=== PATIENT | female | born 1950 | race Caucasian/White ===

== ENCOUNTER 2021-04-17 16:04 | Emergency (ER) | payer MEDICARE, MEDICAID, SELFPAY ==
[2021-04-17 16:34] VITALS: BP 108/60; BP 128/50; PULSE 55; PULSE 60; RESP 18; TEMP 36.6; O2SAT 100; O2SAT 99; BMI 22.9
--- NOTE | 2021-04-17 16:42 | ED.GENADULT ---
HPI - General Adult General Chief complaint: General Medical Stated complaint: ?uti Source: patient and EMS Mode of arrival: EMS Limitations: no limitations History of Present Illness HPI narrative: 71-year-old female presents from a [place] [facility] facility for altered mental status and missing 5 days of a psychiatric medication. At the time of my evaluation patient is alert oriented x4, answering questions accurately. States that she has urinary symptoms and has had episodes of incontinence over the past several days. She states to feel tired but does not describe any other symptoms at this time. She denies fevers, chills, chest pain or pressure, palpitations, shortness of breath, nausea, vomiting, diarrhea, constipation, or any other concerning symptoms. Onset (ago): day(s) Radiation: non-radiation Severity: moderate Severity scale (1-10): 6 Quality: burning Pain Consistency: intermittent Relieving factors: none Associated symptoms: malaise Treatments prior to arrival: none Related Data Previous Rx's Medication Instructions Recorded cefuroxime axetil 500 mg tablet 500 mg PO Q12H 7 Days #14 tab 04/17/21 Allergies Allergy/AdvReac Type Severity Reaction Status Date / Time Penicillins Allergy Hives Verified 04/17/21 16:26 Review of Systems Review of Systems: Constitutional: Positive altered mental status, No Fever, No Chills ENT/Mouth: No Ear Pain, No Hoarseness, No sore throat Eyes: No Eye Pain, No Swelling, No Redness, No Foreign Body Cardiovascular: No Chest Pain, No SOB Respiratory: No Cough, No Dyspnea Gastrointestinal: No Nausea, No Vomiting, No Diarrhea, No abdominal Pain Genitourinary: Positive Dysuria, positive urgency, positive stress incontinence, No Hematuria Musculoskeletal: positive joint pain, No Myalgias, No Joint Swelling Skin: No Skin lacerations, No rash Neuro: No Weakness, No Numbness, No Paresthesias, No Loss of Consciousness, No Dizziness, No Headache Psych: No Anxiety/Panic, No Depression Heme/Lymph: no easy bruising, no Lymphadenopathy Endocrine: No Polyuria, No Polydipsia Yes all other systems are reviewed and are negative [facility] Past Medical History Attestation statement: The following information was validated with the patient. Source: old records reviewed Medical History Coronary artery disease DVT (deep venous thrombosis) Glaucoma Neuropathy Non-insulin dependent diabetes mellitus Pulmonary embolism Vascular dementia Social History Social History Alcohol intake: never Patient Tobacco Use Status: Former Tobacco user Use of substances other than those prescribed or required for medical reasons: No Advance Directives: No Advance Directives Information Provided: Yes Physical Exam Vital Signs: Vital Signs: Last Vital Signs Temp 97.9 F 04/17/21 20:00 Pulse 58 04/17/21 20:00 Resp 18 04/17/21 20:00 BP 118/58 L 04/17/21 20:00 Pulse Ox 99 04/17/21 20:00 Body Mass Index 22.9 Appearance: Alert. Oriented X3. No acute distress. Eyes: Pupils equal, round and reactive to light. ENT: Pharynx normal. Neck: Normal inspection. Neck supple. CVS: Normal heart rate and rhythm. Pulses normal. Respiratory: No respiratory distress. Breath sounds normal. Abdomen: Soft and nontender. Skin: Skin warm and dry. Normal skin color. Normal skin turgor. Extremities: No lower extremity edema. Moves all extremities, gait not assessed for safety. Neuro: No motor deficit. No sensory deficit. Cranial nerves 2-12 intact. Course Course Course Narrative: 71-year-old female presents via EMS from a [place] [facility] for suspected UTI. Has had altered mental status for several days, also noted that she has not received her olanzapine for several days. At this time, patient is alert oriented, answering questions appropriately, and in complete sentences. States to have urinary symptoms for the past several days. Will order CBC, Chem 7, and urinalysis. Urinalysis is positive for UTI. Will order ceftriaxone, lactic and cultures. Multiple attempts for IV start failed. Patient received ceftriaxone for UTI, no complications noted. Will discharge to [place] [facility] with cefuroxime. RN called report to facility. Medical Decision Making Lab Data Result diagrams: 04/17/21 16:52 04/17/21 16:52 Labs: Lab Results 04/17/21 04/17/21 04/17/21 Range/Units 16:52 16:52 17:03 WBC 6.9 (4.8-10.8) X10*3/uL RBC 3.50 L (4.20-5.50) X10*6/uL Hgb 10.7 L (12.0-16.0) g/dl Hct 33.4 L (37-47) % MCV 95.4 (80-98) fL MCH 30.6 (27.0-33.0) pg MCHC 32.0 (31.0-35.0) g/dl RDW 12.2 (11.0-16.0) % Plt Count 198 (160-400) X10*3/uL MPV 10.1 (9.4-12.3) fL Immature Gran % (Auto) 0.3 (0.0-0.4) % Neut % (Auto) 65.0 (45-73) % Lymph % (Auto) 26.2 (20-40) % [place] % (Auto) 7.4 (2-11) % Eos % (Auto) 1.0 (0-4) % Baso % (Auto) 0.1 (0-2) % Lymph # (Auto) 1.8 (1.2-4.9) X10*3/uL [place] # (Auto) 0.5 (0.1-1.2) X10*3/uL Eos # (Auto) 0.1 (0.0-0.4) X10*3/uL Baso # (Auto) 0.0 (0.0-0.2) X10*3/uL Abs Immat Gran (auto) 0.02 (0.00-0.03) X10*3/uL Absolute Neuts (auto) 4.5 (2.0-8.3) X10*3/uL Absolute Nucleated RBC 0.000 (0.0-0.012) X10*3/uL Nucleated RBC % (auto) 0.0 (0.0-0.2) /100WBC Sodium 144 (135-145) mmol/L Potassium 4.3 (3.3-5.1) mmol/L Chloride 113 H (96-108) mmol/L Carbon Dioxide 24 (22-29) mmol/L Anion Gap 11 L (12-20) BUN 21 H (9-16) mg/dL Creatinine 0.94 (0.5-1.4) mg/dL Estim Creat Clear Calc 55.3 Estimated GFR 59 Random Glucose 152 H (60-115) mg/dL Lactic Acid (0.5-2.0) mmol/L Calcium 8.8 (8.4-10.2) mg/dL Urine Color YELLOW Urine Appearance HAZY Urine pH 6.0 (5.0-8.0) Ur Specific [place] 1.020 (1.005-1.025) Urine Protein TRACE (NEG-TRACE) MG/DL Urine Glucose (UA) NEG (NEG) MG/DL Urine Ketones NEG (NEG) MG/DL Urine Blood NEG (NEG) Urine Nitrite POS H (NEG) Ur Leukocyte Esterase 2+ H (NEG) Urine RBC 0 (0) /HPF Urine WBC 76-150 H (0-4) /HPF Ur Squamous Epith Cells TRACE /LPF Ur Renal Epithelial Cell TRACE /LPF Uric Acid Crystals TRACE /LPF Urine Bacteria 4+ /LPF 04/17/21 Range/Units 18:55 WBC (4.8-10.8) X10*3/uL RBC (4.20-5.50) X10*6/uL Hgb (12.0-16.0) g/dl Hct (37-47) % MCV (80-98) fL MCH (27.0-33.0) pg MCHC (31.0-35.0) g/dl RDW (11.0-16.0) % Plt Count (160-400) X10*3/uL MPV (9.4-12.3) fL Immature Gran % (Auto) (0.0-0.4) % Neut % (Auto) (45-73) % Lymph % (Auto) (20-40) % [place] % (Auto) (2-11) % Eos % (Auto) (0-4) % Baso % (Auto) (0-2) % Lymph # (Auto) (1.2-4.9) X10*3/uL [place] # (Auto) (0.1-1.2) X10*3/uL Eos # (Auto) (0.0-0.4) X10*3/uL Baso # (Auto) (0.0-0.2) X10*3/uL Abs Immat Gran (auto) (0.00-0.03) X10*3/uL Absolute Neuts (auto) (2.0-8.3) X10*3/uL Absolute Nucleated RBC (0.0-0.012) X10*3/uL Nucleated RBC % (auto) (0.0-0.2) /100WBC Sodium (135-145) mmol/L Potassium (3.3-5.1) mmol/L Chloride (96-108) mmol/L Carbon Dioxide (22-29) mmol/L Anion Gap (12-20) BUN (9-16) mg/dL Creatinine (0.5-1.4) mg/dL Estim Creat Clear Calc Estimated GFR Random Glucose (60-115) mg/dL Lactic Acid 0.9 (0.5-2.0) mmol/L Calcium (8.4-10.2) mg/dL Urine Color Urine Appearance Urine pH (5.0-8.0) Ur Specific [place] (1.005-1.025) Urine Protein (NEG-TRACE) MG/DL Urine Glucose (UA) (NEG) MG/DL Urine Ketones (NEG) MG/DL Urine Blood (NEG) Urine Nitrite (NEG) Ur Leukocyte Esterase (NEG) Urine RBC (0) /HPF Urine WBC (0-4) /HPF Ur Squamous Epith Cells /LPF Ur Renal Epithelial Cell /LPF Uric Acid Crystals /LPF Urine Bacteria /LPF Discharge Plan Discharge Clinical Impression: Acute UTI Patient Disposition: Home, Self-Care Instructions: Urinary Tract Infection in Women (ED) Additional Instructions: You were evaluated for dysuria. Your urinalysis is positive for UTI. Please take cefuroxime 500 mg twice a day for the next 7 days Drink plenty of fluids. Please continue to take all medications as prescribed previously. Thank you for choosing this emergency department for evaluation. Please follow-up with primary care physician as needed. Return to the emergency department for any new, concerning, or worsening symptoms. Prescriptions: New cefuroxime axetil 500 mg tablet 500 mg PO Q12H 7 Days Qty: 14 RF: 0 Interventions: ED Discharge Assessment Last Done: 04/17/21 21:37 Discharge Date/Time: 04/17/21 21:39
[2021-04-17 16:57] LABS: MANUAL DIFF FLAG NO
[2021-04-17 17:19] LABS: Basophils Percent Auto 0.1 % (0-2); Eosinophils Absolute Auto 0.1 X10*3/uL (0.0-0.4); Hematocrit 33.4 % (37-47); Hemoglobin 10.7 g/dl (12.0-16.0); Imm Gran Abs Auto 0.02 X10*3/uL (0.00-0.03); Imm Gran Pct Auto 0.3 % (0.0-0.4); Lymphocytes Absolute Auto 1.8 X10*3/uL (1.2-4.9); Lymphocytes Percent Auto 26.2 % (20-40); Mean Corpuscular Hemoglobin 30.6 pg (27.0-33.0); Mean Corpuscular Volume 95.4 fL (80-98); Mean Platelet Volume 10.1 fL (9.4-12.3); Monocytes Absolute Auto 0.5 X10*3/uL (0.1-1.2); Monocytes Percent Auto 7.4 % (2-11); Neutrophils Absolute Auto 4.5 X10*3/uL (2.0-8.3); Platelet Count 198 X10*3/uL (160-400); Red Cell Distribution Width 12.2 % (11.0-16.0); White Blood Count 6.9 X10*3/uL (4.8-10.8)
[2021-04-17 17:20] LABS: Anion Gap 11 (12-20); Blood Urea Nitrogen 21 mg/dL (9-16); Calcium 8.8 mg/dL (8.4-10.2); Carbon Dioxide 24 mmol/L (22-29); Chloride 113 mmol/L (96-108); Creatinine Clr Calc Pharmacy 55.3; Estimated Glomerular Filt Rate 59; Glucose Random 152 mg/dL (60-115); Potassium 4.3 mmol/L (3.3-5.1); Sodium 144 mmol/L (135-145)
[2021-04-17 17:38] LABS: Glucose Urine UA NEG (NEG); Leukocyte Esterase Urine 2+ (NEG); Nitrite Urine POS (NEG); UACC Culture Trigger YES; Urine Blood NEG (NEG); Urine Ketones NEG (NEG); Urine Protein TRACE MG/DL (NEG-TRACE)
[2021-04-17 17:39] LABS: Appearance Urine HAZY; Color Urine YELLOW
[2021-04-17 17:53] VITALS: BP 122/35; PULSE 61; RESP 18; TEMP 36.7; O2SAT 96
--- NOTE | 2021-04-17 17:54 | PC.NURSE ---
patient continues to be a&ox3, vss, pt awaiting results of testing, will continue to monitor.
[2021-04-17 18:01] LABS: Bacteria Urine 4+ /LPF; RBC Urine 0 /HPF (0); Renal Epithelial Cells Urine TRACE /LPF; Squamous Epithelial Cell Urine TRACE /LPF; Uric Acid Crystals Urine TRACE /LPF
[2021-04-17] MEDS: cefTRIAXone sodium 1 GM in 0.9 % Sodium Chloride 50 ML IV (19:02)
[2021-04-17] MEDS: 0.9 % Sodium Chloride 1,000 ML 999 ML IVCONT (19:02)
--- NOTE | 2021-04-17 19:04 | PC.NURSE ---
blood cultures drawnx2, vl drawn, ivf and antibiotics started per order, pt to discharge back to nursing facility after fluids/abx have completed.
--- NOTE | 2021-04-17 19:22 | PC.NURSE ---
attempted to call aide FRIED to give nurse to nurse report. an aid answered the phone and stated that the rn was on a break and to call back in 15 minutes. will attempt to call the facility again to give report.
[2021-04-17 19:24] LABS: Lactic Acid 0.9 mmol/L (0.5-2.0)
[2021-04-17 20:00] VITALS: BP 118/58; PULSE 58; RESP 18; TEMP 36.6; O2SAT 99
--- NOTE | 2021-04-17 20:55 | PC.NURSE ---
attempted to call report again, left message on answering machine
--- NOTE | 2021-04-17 21:24 | PC.NURSE ---
patient continues to be a&ox3, pt awaiting transport back to [facility], vss, pt dressed and ready for transport.
== END 2021-04-17 21:39 | disposition home or self-care (01) ==
PROVIDERS: Nurse Practitioner Family; Emergency Provider Emergency Medicine Emergency Medical Services
DX: N39.0 Urinary tract infection, site not specified (principal); R41.82 Altered mental status, unspecified; I25.10 Atherosclerotic heart disease of native coronary artery without angina pectoris; E11.9 Type 2 diabetes mellitus without complications; Z79.899 Other long term (current) drug therapy; Z87.891 Personal history of nicotine dependence; Z79.4 Long term (current) use of insulin; Z86.718 Personal history of other venous thrombosis and embolism
CPT/HCPCS: 36415; 51702; 80048; 81001; 83605; 85025; 87040; 87086; 87088; 87186; 96360; 99284; J0696

== ENCOUNTER 2021-05-04 17:01 | Emergency (ER) | payer MEDICARE, MEDICAID, SELFPAY ==
--- NOTE | ~2021-05-04 | CT_ITS ---
EXAMINATION: CT ABDOMEN AND PELVIS WITH CONTRAST CLINICAL INFORMATION: Lower abdominal pain with history of vaginal bleeding COMPARISON: None TECHNIQUE: Multidetector volumetric images were obtained from the superior aspect of the liver through the pubic symphysis following administration 85 mL of Omnipaque 350 intravenous contrast. Sagittal and coronal reformatted images were obtained on the technologist's workstation. Oral contrast: No This CT examination was performed using dose optimization techniques as appropriate, variously including the following: *Automated exposure control *Adjustment of mA and/or kV according to patient size (this includes techniques or standardized protocols for targeted exams where dose is matched to indication/reason for exam; i.e. extremities or head) *Use of iterative reconstruction technique DLP: 426 mGy-cm FINDINGS: LUNG BASES: The visualized lung bases are unremarkable. LIVER, GALLBLADDER, AND BILIARY TREE: The liver is normal in size, shape, and attenuation. 2 tiny hypodensities are noted 4 mm and measures water density. These are consistent with cysts. No suspicious solid focal hepatic lesion or biliary ductal dilatation is present. The gallbladder is unremarkable with no evidence of radiopaque gallstones, gallbladder wall thickening, or obvious pericholecystic inflammatory changes. PANCREAS: Unremarkable. SPLEEN: Unremarkable. A small punctate subcapsular granuloma is present. ADRENAL GLANDS: Unremarkable. KIDNEYS AND URETERS: The kidneys are normal in size, shape, and attenuation. No hydronephrosis, hydroureter, or calculi seen. No perinephric stranding. BLADDER: Unremarkable. GASTROINTESTINAL TRACT: A small hiatal hernia is present with some thickening at the GE junction The small and large bowel are unremarkable. The appendix is unremarkable. ABDOMINAL WALL: No significant hernia is appreciated. LYMPH NODES: No retroperitoneal lymphadenopathy seen. Multiple prominent rim-enhancing lymph nodes are seen in both groins. VASCULAR: Calcific atherosclerotic changes present in the aorta and its branches and the iliofemoral vessels. PELVIC VISCERA: An anteverted uterus is present. An abnormal adnexal mass or free intraperitoneal fluid is not seen. OSSEOUS STRUCTURES: Degenerative changes noted throughout the spine. There is mild grade 1 spondylolisthesis with forward slippage of L3 upon L4.. No bony destructive lesions seen. CT/CT abdomen pelvis w con IMPRESSION: 1. A cause for the patient's lower abdominal pain has not been found. 2. Incidental note made of tiny hepatic cysts, small splenic granuloma, hiatal hernia, degenerative changes in the spine and prominent rim-enhancing bilateral groin lymph nodes.
[2021-05-04 17:08] VITALS: BP 112/47; PULSE 59; RESP 18; TEMP 37.1; O2SAT 98; BMI 23.8
--- NOTE | 2021-05-04 17:33 | ED.GENADULT ---
HPI - General Adult General Chief complaint: General Medical Stated complaint: ams Time Seen by Provider: 05/04/21 17:31 Source: patient Limitations: no limitations History of Present Illness HPI narrative: This is a 71-year-old female who lives [facility], states she has had discomfort in her uterus for the last few months. Patient Also notes that though she is postmenopausal, she had bleeding like a menstrual period last month. She denies any fever. She has not had any chest pain or shortness of breath. Denies any cough. She denies current abdominal pain. She denies any constipation or diarrhea. She denies any urinary symptoms such as urinary frequency or dysuria. She notes a history of . She also knows that checked her urine and without finding a reason for her symptoms. Further history was obtained that the patient has worsening dementia. They were concerned at her facility that she may have recurring UTI. Related Data Previous Rx's Medication Instructions Recorded cefuroxime axetil 500 mg tablet 500 mg PO Q12H 7 Days #14 tab 04/17/21 Allergies Allergy/AdvReac Type Severity Reaction Status Date / Time Penicillins Allergy Hives Verified 04/17/21 16:26 Review of Systems Review of Systems: Yes all other systems are reviewed and are negative Constitutional: Constitutional: Reports as per HPI and Denies fever(s) Eyes: Eyes: Reports as per HPI and Reports no additional eye complaints ENT: Reports system reviewed and no additional complaints, except as documented, Reports as per HPI, Denies nasal congestion, Denies nasal discharge and Denies sore throat Cardiovascular: Cardiovascular: Reports as per HPI, Denies chest pain and Denies dyspnea Respiratory: Respiratory: Reports as per HPI, Denies cough and Denies dyspnea Gastrointestinal: Gastrointestinal: Reports as per HPI, Reports abdominal pain, Denies diarrhea and Denies vomiting Genitourinary: Genitourinary: Reports as per HPI, Reports abnormal vaginal bleeding, Denies hematuria, Denies urinary frequency and Denies dysuria Musculoskeletal: Musculoskeletal: Reports no additional musculoskeletal complaints and Denies numbness Integumentary/Breasts: Skin/Breast: Reports as per HPI and Denies rash Neurologic: Reports as per HPI, Denies focal weakness, Denies numbness and Denies Sensory deficit (Neuro) Psychiatric: Psychiatric: Reports no additional psychiatric complaints and Reports as per HPI Endocrine: Endocrine: Reports no additional endocrine complaints and Reports as per HPI Hematologic/Lymphatic: Hematologic/Lymphatic: Reports no additional hematologic/lymphatic complaints, Reports as per HPI and Reports other (No peripheral edema) [facility] Past Medical History Medical History Coronary artery disease DVT (deep venous thrombosis) Glaucoma Neuropathy Non-insulin dependent diabetes mellitus Pulmonary embolism Vascular dementia Social History Social History Alcohol intake: never Patient Tobacco Use Status: Former Tobacco user Smoked in Last 30 Days: No Use of substances other than those prescribed or required for medical reasons: No Advance Directives: No Advance Directives Information Provided: Yes Physical Exam Vital Signs: Vital Signs: Last Vital Signs Temp 97.6 F 05/04/21 20:48 Pulse 58 05/04/21 20:48 Resp 16 05/04/21 20:48 BP 127/52 L 05/04/21 20:48 Pulse Ox 100 05/04/21 20:48 Body Mass Index 23.8 Const: General: cooperative, no acute distress and alert Orientation/consciousness: patient oriented x3 HENMT: Head: Yes normal to inspection Eyes: General: appearance normal, both eyes and all related structures Eyelids: Yes eyelids normal Conjunctivae: conjunctivae normal Pupils: Equal, round and reactive pupils present Neck: Neck: Yes normal visual inspection and Yes supple Chest: Chest palpation & inspection: normal inspection of the chest Resp: Effort & Inspection: normal respiratory effort Auscultation: clear to auscultation bilaterally Cardio: Rate: regular rate Rhythm: regular rhythm Heart sounds: S1 normal heart sound present, S2 normal heart sound present, no gallops, no murmurs and no rubs GI: Palpation (GI): Soft to palpation, nontender and Other GI palpation findings present (Non-distended) Auscultation: normal bowel sounds Skin: General skin exam: no rashes or lesions noted Neuro: General: patient oriented x3, no focal motor deficits and CN's II-XI intact bilaterally Cranial nerves: Yes Equal, round and reactive pupils present Cognition (Neuro): normal cognition Motor exam (neuro): 5/5 motor strength present throughout Sensory Exam: No Sensory deficit (Neuro) Extrem: General: Yes normal to inspection and Yes no pedal edema Psych: Appearance: grossly normal Affect: normal affect Medical Decision Making MDM Narrative Medical decision making narrative: Patient with dementia, sent in to rule out UTI. Patient had complained of lower abdominal discomfort but it was unclear if this was reliable information or confabulation by the patient. Patient also reported abnormal vaginal bleeding, and again it was unclear if this was reliable information. CT of the abdomen pelvis showed no concerning findings. Urinalysis and other labs notable only for mild chronic anemia, mild increased BUN to creatinine ratio Lab Data Lab results reviewed: Yes I reviewed the patient's lab results. Result diagrams: 05/04/21 17:51 05/04/21 17:51 Labs: Lab Results 05/04/21 05/04/21 05/04/21 Range/Units 17:51 17:51 18:20 WBC 6.4 (4.8-10.8) X10*3/uL RBC 3.53 L (4.20-5.50) X10*6/uL Hgb 10.7 L (12.0-16.0) g/dl Hct 33.2 L (37-47) % MCV 94.1 (80-98) fL MCH 30.3 (27.0-33.0) pg MCHC 32.2 (31.0-35.0) g/dl RDW 12.3 (11.0-16.0) % Plt Count 196 (160-400) X10*3/uL MPV 9.8 (9.4-12.3) fL Immature Gran % (Auto) 0.3 (0.0-0.4) % Neut % (Auto) 65.5 (45-73) % Lymph % (Auto) 24.6 (20-40) % [place] % (Auto) 8.6 (2-11) % Eos % (Auto) 0.8 (0-4) % Baso % (Auto) 0.2 (0-2) % Lymph # (Auto) 1.6 (1.2-4.9) X10*3/uL [place] # (Auto) 0.6 (0.1-1.2) X10*3/uL Eos # (Auto) 0.1 (0.0-0.4) X10*3/uL Baso # (Auto) 0.0 (0.0-0.2) X10*3/uL Abs Immat Gran (auto) 0.02 (0.00-0.03) X10*3/uL Absolute Neuts (auto) 4.2 (2.0-8.3) X10*3/uL Absolute Nucleated RBC 0.000 (0.0-0.012) X10*3/uL Nucleated RBC % (auto) 0.0 (0.0-0.2) /100WBC Sodium 145 (135-145) mmol/L Potassium 3.8 (3.3-5.1) mmol/L Chloride 112 H (96-108) mmol/L Carbon Dioxide 24 (22-29) mmol/L Anion Gap 13 (12-20) BUN 23 H (9-16) mg/dL Creatinine 0.87 (0.5-1.4) mg/dL Estim Creat Clear Calc 57.6 Estimated GFR > 60 Random Glucose 127 H (60-115) mg/dL Calcium 9.1 (8.4-10.2) mg/dL Total Bilirubin 0.2 (0.0-1.0) mg/dL AST 13 (5-31) U/L ALT 10 (0-31) U/L Alkaline Phosphatase 62 (39-117) U/L Total Protein 6.9 (6.5-8.0) g/dL Albumin 3.8 (3.5-5.0) g/dL Urine Color YELLOW Urine Appearance CLEAR Urine pH 6.0 (5.0-8.0) Ur Specific [place] 1.025 (1.005-1.025) Urine Protein NEG (NEG-TRACE) MG/DL Urine Glucose (UA) NEG (NEG) MG/DL Urine Ketones NEG (NEG) MG/DL Urine Blood NEG (NEG) Urine Nitrite NEG (NEG) Ur Leukocyte Esterase NEG (NEG) Imaging Data CT scan - abdomen: Radiologist's impression: 1.? A cause for the patient's lower abdominal pain has not been found. 2.? Incidental note made of tiny hepatic cysts, small splenic granuloma, hiatal hernia, degenerative changes in the spine and prominent rim-enhancing bilateral groin lymph nodes.? Discharge Plan Discharge Clinical Impression: Dementia Patient Disposition: Xfer LTC Instructions: Dementia (ED) Additional Instructions: Follow-up with primary care physician. Return for any new or worsened symptoms. Prescriptions: No Action cefuroxime axetil 500 mg tablet 500 mg PO Q12H 7 Days Qty: 14 RF: 0 Interventions: ED Discharge Assessment Last Done: 05/04/21 20:54 Discharge Date/Time: 05/04/21 21:03
[2021-05-04 17:55] LABS: MANUAL DIFF FLAG NO
[2021-05-04 17:57] LABS: Basophils Percent Auto 0.2 % (0-2); Eosinophils Absolute Auto 0.1 X10*3/uL (0.0-0.4); Eosinophils Percent Auto 0.8 % (0-4); Hematocrit 33.2 % (37-47); Hemoglobin 10.7 g/dl (12.0-16.0); Imm Gran Abs Auto 0.02 X10*3/uL (0.00-0.03); Imm Gran Pct Auto 0.3 % (0.0-0.4); Lymphocytes Absolute Auto 1.6 X10*3/uL (1.2-4.9); Lymphocytes Percent Auto 24.6 % (20-40); Mean Corpuscular HGB Conc 32.2 g/dl (31.0-35.0); Mean Corpuscular Hemoglobin 30.3 pg (27.0-33.0); Mean Corpuscular Volume 94.1 fL (80-98); Mean Platelet Volume 9.8 fL (9.4-12.3); Monocytes Absolute Auto 0.6 X10*3/uL (0.1-1.2); Monocytes Percent Auto 8.6 % (2-11); Neutrophils Absolute Auto 4.2 X10*3/uL (2.0-8.3); Neutrophils Percent Auto 65.5 % (45-73); Platelet Count 196 X10*3/uL (160-400); Red Blood Count 3.53 X10*6/uL (4.20-5.50); Red Cell Distribution Width 12.3 % (11.0-16.0); White Blood Count 6.4 X10*3/uL (4.8-10.8)
[2021-05-04 18:00] VITALS: BP 116/47; PULSE 54; RESP 18
[2021-05-04 18:27] LABS: Alanine Aminotransferase 10 U/L (0-31); Albumin Level 3.8 g/dL (3.5-5.0); Alkaline Phosphatase 62 U/L (39-117); Anion Gap 13 (12-20); Aspartate Amino Transferase 13 U/L (5-31); Bilirubin Total 0.2 mg/dL (0.0-1.0); Blood Urea Nitrogen 23 mg/dL (9-16); Calcium 9.1 mg/dL (8.4-10.2); Carbon Dioxide 24 mmol/L (22-29); Chloride 112 mmol/L (96-108); Creatinine Clr Calc Pharmacy 57.6; Estimated Glomerular Filt Rate > 60; Glucose Random 127 mg/dL (60-115); Potassium 3.8 mmol/L (3.3-5.1); Sodium 145 mmol/L (135-145); Total Protein 6.9 g/dL (6.5-8.0)
[2021-05-04 18:32] LABS: Glucose Urine UA NEG (NEG); Leukocyte Esterase Urine NEG (NEG); Nitrite Urine NEG (NEG); Specific Gravity - Urine 1.025 (1.005-1.025); Urine Blood NEG (NEG); Urine Ketones NEG (NEG); Urine Protein NEG (NEG-TRACE)
[2021-05-04 18:39] LABS: Appearance Urine CLEAR; Color Urine YELLOW
[2021-05-04] MEDS: iohexoL 350 MG/ML 100 ML INFUS..BTL IV (18:52)
[2021-05-04 20:48] VITALS: BP 127/52; PULSE 58; RESP 16; TEMP 36.4; O2SAT 100
== END 2021-05-04 21:03 ==
PROVIDERS: Emergency Provider Emergency Medicine; PCP Internal Medicine
DX: F03.90 Unspecified dementia, unspecified severity, without behavioral disturbance, psychotic disturbance, mood disturbance, and anxiety (principal); I25.10 Atherosclerotic heart disease of native coronary artery without angina pectoris; E11.9 Type 2 diabetes mellitus without complications; Z79.84 Long term (current) use of oral hypoglycemic drugs; Z87.891 Personal history of nicotine dependence; Z79.899 Other long term (current) drug therapy; Z86.718 Personal history of other venous thrombosis and embolism
CPT/HCPCS: 36415; 51798; 74177; 80053; 81003; 85025; 99284; 99285; Q9967

== ENCOUNTER 2022-02-26 08:59 | Inpatient (IN) | payer MEDICARE, MEDICAID, SELFPAY ==
--- NOTE | ~2022-02-26 | CT_ITS ---
EXAMINATION: CT HEAD WITHOUT CONTRAST CLINICAL INFORMATION: Acute mental status change COMPARISON: None TECHNIQUE: Contiguous axial imaging was performed from the skull base to vertex without intravenous administration of contrast. This CT examination was performed using dose optimization techniques as appropriate, variously including the following: *Automated exposure control *Adjustment of mA and/or kV according to patient size (this includes techniques or standardized protocols for targeted exams where dose is matched to indication/reason for exam; i.e. extremities or head) *Use of iterative reconstruction technique DLP: 628 mGy-cm FINDINGS: There is no evidence of acute intracranial hemorrhage or territorial infarction. No abnormal mass effect or midline shift is seen. Rivera to white matter differentiation is well preserved. No extra-axial fluid collections are identified. The ventricles are age-appropriate. There is no abnormal attenuation within the brain parenchyma. The osseous structures and soft tissues are normal. The mastoid air cells and visualized portions of the paranasal sinuses are well aerated. CT/CT head/brain wo con IMPRESSION: No acute intracranial pathology.
--- NOTE | ~2022-02-26 | XR_ITS ---
EXAMINATION: XR CHEST CLINICAL INFORMATION: Altered mental status. COMPARISON: None TECHNIQUE: Frontal view of the chest was obtained. FINDINGS: Subtle opacities overlie the right mid and lower lung valenzuela. Possible small opacities overlying the left upper lower lung valenzuela. The heart and mediastinal structures are unremarkable. XR/XR chest 1V IMPRESSION: Subtle opacities bilaterally right greater than left, a component which may be projectional representing summation of overlapping structures however atelectasis and/or infiltrates cannot be excluded.
--- NOTE | ~2022-02-26 | XR_ITS ---
EXAMINATION: XR CHEST CLINICAL INFORMATION: Altered mental status. Question infiltrate on AP chest x-ray COMPARISON: AP chest x-ray from earlier the same day TECHNIQUE: Lateral view of the chest was obtained. FINDINGS: There is question of a retrosternal atelectasis or small infiltrate. The lungs are otherwise clear. No pleural effusion or pneumothorax. Degenerative changes of the spine. XR/XR chest 1V IMPRESSION: Question retrosternal atelectasis or small infiltrate.
[2022-02-26 09:15] VITALS: BP 118/80; BP 133/64; PULSE 87; PULSE 93; RESP 18; TEMP 36.9; O2SAT 93; O2SAT 94; BMI 26.6
[2022-02-26 09:19] LABS: Glucose, Whole Blood 443 mg/dL (60-115)
[2022-02-26 09:21] VITALS: BP 133/64; PULSE 85; RESP 18; TEMP 36.9; O2SAT 94
--- NOTE | 2022-02-26 09:44 | ECG_ITS ---
Test Reason : ALTERED MENTAL Blood Pressure : / mmHG Vent. Rate : 072 BPM Atrial Rate : 072 BPM P-R Int : 126 ms QRS Dur : 074 ms QT Int : 364 ms P-R-T Axes : 068 055 012 degrees QTc Int : 398 ms Normal sinus rhythm Nonspecific ST and T wave abnormality Abnormal ECG No previous ECGs available Referred By: Missy Perez Electronically Signed By:Deion Macedo
--- NOTE | 2022-02-26 09:57 | ED.GENADULT ---
HPI - General Adult General Chief complaint: General Medical Stated complaint: ams Time Seen by Provider: 02/26/22 09:39 Source: patient and EMS Mode of arrival: EMS History of Present Illness HPI narrative: 71-year-old female with past medical history of CAD, diabetes, DVT, vascular dementia, BIBA from [facility] for AMS noted yesterday. Spoke to staff member Jj who reports patient had increasing shakiness, was unable to walk, or hold conversations. States at baseline is A&O x2, can hold conversation/talk about her children, and ambulate. Facility questioning UTI. Admits to fall 2 weeks ago onto knees, patient not evaluated afterwards, denies anything more recent. Denies known fever. Onset (ago): unknown Related Data Previous Rx's Medication Instructions Recorded cefuroxime axetil 500 mg tablet 500 mg PO Q12H 7 days #14 tabs 04/17/21 Allergies Allergy/AdvReac Type Severity Reaction Status Date / Time Penicillins Allergy Hives Verified 04/17/21 16:26 Review of Systems Review of Systems: Neuro: +AMS ROS unobtainable due to patient's acute mental status Yes all other systems are reviewed and are negative [facility] Past Medical History Attestation statement: The following information was validated with the patient. Medical History Coronary artery disease DVT (deep venous thrombosis) Glaucoma Neuropathy Non-insulin dependent diabetes mellitus Pulmonary embolism Vascular dementia Social History Social History Alcohol intake: former Patient Tobacco Use Status: Former Tobacco user Use of substances other than those prescribed or required for medical reasons: No Advance Directives: No Advance Directives Information Provided: No Physical Exam ED Vital Signs: Vital Signs - 24 hr 02/26/22 09:15 02/26/22 09:21 02/26/22 11:51 Temperature 98.5 F 98.5 F 98.1 F Pulse Rate 87 85 85 Respiratory Rate 18 18 18 Blood Pressure 133/64 133/64 137/59 L Pulse Oximetry 94 94 97 Oxygen Delivery Method Room Air Room Air Room Air BMI result Body Mass Index 26.6 Const General: cooperative and no acute distress Orientation/consciousness: oriented to person Limitations: no limitations HENMT Head: Yes normal to inspection and Yes atraumatic Ears: hearing grossly normal bilaterally General nose exam: Normal external nose present Face and sinus: Yes normal facial exam Mouth: mucous membranes dry Eyes General: appearance normal, both eyes and all related structures EOM: EOMs intact bilaterally Neck Neck: Yes normal visual inspection and Yes no meningeal signs Resp Effort & Inspection: normal respiratory effort and no respiratory distress Auscultation: clear to auscultation bilaterally, no crackles and no wheezes Cardio Rate: regular rate Heart sounds: S1 normal heart sound present and S2 normal heart sound present GI Inspection: Yes normal to inspection Palpation (GI): Soft to palpation, nontender, no guarding and not rigid Skin Rashes: no rashes Wounds: no wounds Neuro Other: Answering questions, repeating words General: oriented to person, tone normal, moves all extremities and no meningeal signs Extrem General: Yes normal to inspection and Yes no pedal edema Course Course Course Narrative: -1100--patient noted to be hypernatremic to 165, & glucose 545 > NS stopped and changed to D5w > 10U subQ insulin also given. Acetone negative -SHERYL with a BUN of 50 and a creatinine of 1.49 > suspected from dehydration 1206--CT head/brain wo con IMPRESSION: No acute intracranial pathology. XR chest 1VIMPRESSION: Subtle opacities bilaterally right greater than left, a component which may be projectional representing summation of overlapping structures however atelectasis and/or infiltrates cannot be excluded. >> lactic/blood cultures and empiric IV antibiotics ordered -1235--repeat POC 355 > plan to admit for further management Medical Decision Making [facility] Narrative Medical decision making narrative: 71-year-old female with past medical history of CAD, diabetes, DVT, vascular dementia, BIBA from [facility] for AMS noted yesterday. Spoke to staff member Jj who reports patient had increasing shakiness, was unable to walk, or hold conversations. On exam vital signs stable, oriented to self, not answering questions appropriately/repetitive, is following commands intermittently. Concern for metabolic/infectious etiologies. Lower concern for ICH plan: EKG, labs, UA, CXR, head CT, re-evaluate Medical Records Medical records reviewed: Yes I reviewed the patient's medical records. Lab Data Lab results reviewed: Yes I reviewed the patient's lab results. Result diagrams: 02/26/22 10:07 02/26/22 10:07 Labs: Lab Results 02/26/22 02/26/22 02/26/22 Range/Units 09:08 10:06 10:07 WBC 9.1 (4.8-10.8) X10*3/uL RBC 4.60 (4.20-5.50) X10*6/uL Hgb 13.3 (12.0-16.0) g/dl Hct 44.4 (37.0-47.0) % MCV 96.5 (80.0-98.0) fL MCH 28.9 (27.0-33.0) pg MCHC 30.0 L (31.0-35.0) g/dl RDW 13.5 (11.0-16.0) % Plt Count 228 (160-400) X10*3/uL MPV 10.1 (9.4-12.3) fL Immature Gran % (Auto) 0.3 (0.0-0.4) % Neut % (Auto) 74.7 H (45-73) % Lymph % (Auto) 16.7 L (20-40) % Jennings % (Auto) 8.0 (2-11) % Eos % (Auto) 0.2 (0-4) % Baso % (Auto) 0.1 (0-2) % Lymph # (Auto) 1.5 (1.2-4.9) X10*3/uL [place] # (Auto) 0.7 (0.1-1.2) X10*3/uL Eos # (Auto) 0.0 (0.0-0.4) X10*3/uL Baso # (Auto) 0.0 (0.0-0.2) X10*3/uL Abs Immat Gran (auto) 0.03 (0.00-0.03) X10*3/uL Absolute Neuts (auto) 6.8 (2.0-8.3) x10*3/uL Absolute Nucleated RBC 0.000 (0.0-0.012) X10*3/uL Nucleated RBC % (auto) 0.0 (0.0-0.2) /100WBC Sodium (135-145) mmol/L Potassium (3.3-5.1) mmol/L Chloride (96-108) mmol/L Carbon Dioxide (22-29) mmol/L Anion Gap (12-20) BUN (9-16) mg/dL Creatinine (0.5-1.4) mg/dL Estim Creat Clear Calc Estimated GFR POC Glucose 443 H* (60-115) mg/dL Random Glucose (60-115) mg/dL Calcium (8.4-10.2) mg/dL Magnesium (1.6-2.6) mg/dL Total Bilirubin (0.0-1.0) mg/dL Direct Bilirubin (0.0-0.5) mg/dL AST (5-31) U/L ALT (0-31) U/L Alkaline Phosphatase (39-117) U/L Ammonia 22 (13-55) umol/L Troponin I High Sens (<3.5-17.0) ng/L Total Protein (6.5-8.0) g/dL Albumin (3.5-5.0) g/dL Acetone, Qual (Negative) COVID-19 (GONZALEZ) (Negative) COVID-19 Clin Com Influenza Type A (MARIE) (Negative) Influenza Type B (MARIE) (Negative) Influenza A & B Note 02/26/22 02/26/22 02/26/22 Range/Units 10:07 10:07 10:09 WBC (4.8-10.8) X10*3/uL RBC (4.20-5.50) X10*6/uL Hgb (12.0-16.0) g/dl Hct (37.0-47.0) % MCV (80.0-98.0) fL MCH (27.0-33.0) pg MCHC (31.0-35.0) g/dl RDW (11.0-16.0) % Plt Count (160-400) X10*3/uL MPV (9.4-12.3) fL Immature Gran % (Auto) (0.0-0.4) % Neut % (Auto) (45-73) % Lymph % (Auto) (20-40) % [place] % (Auto) (2-11) % Eos % (Auto) (0-4) % Baso % (Auto) (0-2) % Lymph # (Auto) (1.2-4.9) X10*3/uL [place] # (Auto) (0.1-1.2) X10*3/uL Eos # (Auto) (0.0-0.4) X10*3/uL Baso # (Auto) (0.0-0.2) X10*3/uL Abs Immat Gran (auto) (0.00-0.03) X10*3/uL Absolute Neuts (auto) (2.0-8.3) x10*3/uL Absolute Nucleated RBC (0.0-0.012) X10*3/uL Nucleated RBC % (auto) (0.0-0.2) /100WBC Sodium 165 H* (135-145) mmol/L Potassium 4.4 (3.3-5.1) mmol/L Chloride 126 H (96-108) mmol/L Carbon Dioxide 26 (22-29) mmol/L Anion Gap 17 (12-20) BUN 50 H (9-16) mg/dL Creatinine 1.49 H (0.5-1.4) mg/dL Estim Creat Clear Calc 38.3 Estimated GFR 34 POC Glucose (60-115) mg/dL Random Glucose 545 H* D (60-115) mg/dL Calcium 10.1 D (8.4-10.2) mg/dL Magnesium 2.7 H (1.6-2.6) mg/dL Total Bilirubin 0.5 (0.0-1.0) mg/dL Direct Bilirubin 0.2 (0.0-0.5) mg/dL AST 8 (5-31) U/L ALT 12 (0-31) U/L Alkaline Phosphatase 109 D (39-117) U/L Ammonia (13-55) umol/L Troponin I High Sens 3.6 (<3.5-17.0) ng/L Total Protein 8.3 H D (6.5-8.0) g/dL Albumin 4.2 (3.5-5.0) g/dL Acetone, Qual Negative (Negative) COVID-19 (GONZALEZ) Negative (Negative) COVID-19 Clin Com See Note Influenza Type A (MARIE) (Negative) Influenza Type B (MARIE) (Negative) Influenza A & B Note 02/26/22 Range/Units 10:09 WBC (4.8-10.8) X10*3/uL RBC (4.20-5.50) X10*6/uL Hgb (12.0-16.0) g/dl Hct (37.0-47.0) % MCV (80.0-98.0) fL MCH (27.0-33.0) pg MCHC (31.0-35.0) g/dl RDW (11.0-16.0) % Plt Count (160-400) X10*3/uL MPV (9.4-12.3) fL Immature Gran % (Auto) (0.0-0.4) % Neut % (Auto) (45-73) % Lymph % (Auto) (20-40) % [place] % (Auto) (2-11) % Eos % (Auto) (0-4) % Baso % (Auto) (0-2) % Lymph # (Auto) (1.2-4.9) X10*3/uL [place] # (Auto) (0.1-1.2) X10*3/uL Eos # (Auto) (0.0-0.4) X10*3/uL Baso # (Auto) (0.0-0.2) X10*3/uL Abs Immat Gran (auto) (0.00-0.03) X10*3/uL Absolute Neuts (auto) (2.0-8.3) x10*3/uL Absolute Nucleated RBC (0.0-0.012) X10*3/uL Nucleated RBC % (auto) (0.0-0.2) /100WBC Sodium (135-145) mmol/L Potassium (3.3-5.1) mmol/L Chloride (96-108) mmol/L Carbon Dioxide (22-29) mmol/L Anion Gap (12-20) BUN (9-16) mg/dL Creatinine (0.5-1.4) mg/dL Estim Creat Clear Calc Estimated GFR POC Glucose (60-115) mg/dL Random Glucose (60-115) mg/dL Calcium (8.4-10.2) mg/dL Magnesium (1.6-2.6) mg/dL Total Bilirubin (0.0-1.0) mg/dL Direct Bilirubin (0.0-0.5) mg/dL AST (5-31) U/L ALT (0-31) U/L Alkaline Phosphatase (39-117) U/L Ammonia (13-55) umol/L Troponin I High Sens (<3.5-17.0) ng/L Total Protein (6.5-8.0) g/dL Albumin (3.5-5.0) g/dL Acetone, Qual (Negative) COVID-19 (GONZALEZ) (Negative) COVID-19 Clin Com Influenza Type A (MARIE) Negative (Negative) Influenza Type B (MARIE) Negative (Negative) Influenza A & B Note See Note Critical Care Time Critical Care Time Critical Care Time: Yes Total Critical Care Time: 45 Attestation: I have personally provided critical care time exclusive of time spent on separately billable procedures. Time includes review of lab data, radiology results, discussion with consultants, and monitoring for potential decompensation. Intervention performed as documented. Discharge Plan Discharge Clinical Impression: AMS (altered mental status), Acute hypernatremia, SHERYL (acute kidney injury), Pneumonia, Acute hyperglycemia Patient Disposition: Admitted As Inpatient
[2022-02-26 10:13] LABS: MANUAL DIFF FLAG NO
[2022-02-26 10:16] LABS: Basophils Percent Auto 0.1 % (0-2); Eosinophils Percent Auto 0.2 % (0-4); Hematocrit 44.4 % (37.0-47.0); Hemoglobin 13.3 g/dl (12.0-16.0); Imm Gran Abs Auto 0.03 X10*3/uL (0.00-0.03); Imm Gran Pct Auto 0.3 % (0.0-0.4); Lymphocytes Absolute Auto 1.5 X10*3/uL (1.2-4.9); Lymphocytes Percent Auto 16.7 % (20-40); Mean Corpuscular Hemoglobin 28.9 pg (27.0-33.0); Mean Corpuscular Volume 96.5 fL (80.0-98.0); Mean Platelet Volume 10.1 fL (9.4-12.3); Monocytes Absolute Auto 0.7 X10*3/uL (0.1-1.2); Neutrophils Absolute Auto 6.8 x10*3/uL (2.0-8.3); Neutrophils Percent Auto 74.7 % (45-73); Platelet Count 228 X10*3/uL (160-400); Red Cell Distribution Width 13.5 % (11.0-16.0); White Blood Count 9.1 X10*3/uL (4.8-10.8)
[2022-02-26] MEDS: 0.9 % Sodium Chloride 1,000 ML 999 ML IV (10:23)
[2022-02-26 10:25] LABS: Ammonia 22 umol/L (13-55)
[2022-02-26 10:38] LABS: Acetone, serum QL Negative (Negative); Troponin-I High Sensitivity 3.6 ng/L (<3.5-17.0)
[2022-02-26 10:39] LABS: Alanine Aminotransferase 12 U/L (0-31); Albumin Level 4.2 g/dL (3.5-5.0); Alkaline Phosphatase 109 U/L (39-117); Aspartate Amino Transferase 8 U/L (5-31); Bilirubin Direct 0.2 mg/dL (0.0-0.5); Bilirubin Total 0.5 mg/dL (0.0-1.0); Blood Urea Nitrogen 50 mg/dL (9-16); Calcium 10.1 mg/dL (8.4-10.2); Creatinine Clr Calc Pharmacy 38.3; Estimated Glomerular Filt Rate 34; Magnesium 2.7 mg/dL (1.6-2.6); Total Protein 8.3 g/dL (6.5-8.0)
[2022-02-26 10:51] LABS: Anion Gap 17 (12-20); Carbon Dioxide 26 mmol/L (22-29); Chloride 126 mmol/L (96-108); Glucose Random 545 mg/dL (60-115); Potassium 4.4 mmol/L (3.3-5.1); Sodium 165 mmol/L (135-145)
[2022-02-26 10:56] LABS: COVID-19 Test Negative (Negative); IDNOW Serial# 16C4AD1C; Influenza A Negative (Negative); Influenza B2 Negative (Negative)
[2022-02-26] MEDS: Insulin Lispro 100 UNIT/ML 3 ML VIAL 10 UNIT SUBCUT (11:19)
[2022-02-26] MEDS: Dextrose 5 % 1,000 ML 125 ML IVCONT (11:25)
[2022-02-26 11:51] VITALS: BP 137/59; PULSE 85; RESP 18; TEMP 36.7; O2SAT 97
--- NOTE | 2022-02-26 12:01 | PC.NURSE ---
Update given to Emerald unit manager rn at [facility] of condition of patient along with care given with treatment plan . will continue to monitor patient and give updates later on to case management when she calls back . patient has been resting comfortable .
[2022-02-26] MEDS: cefEPime HCl 2 GM in 0.9 % Sodium Chloride 50 ML IV (12:31)
[2022-02-26 12:42] LABS: Glucose, Whole Blood 355 mg/dL (60-115)
--- NOTE | 2022-02-26 13:38 | PHA.MEDREC ---
MED REC COMPLETE, NO ISSUES Pharmacy Consult ? Medication Reconciliation Pharmacy has completed the medication reconciliation.
--- NOTE | 2022-02-26 13:41 | PM.IMHP ---
History of Present Illness Date of Service: 02/26/22 Chief Complaint: weakness 71-year-old women presenting from [facility] with altered mental status with past medical history of CAD, diabetes, DVT, vascular dementia. According to the record she had increased shakiness and was unable to walk or hold a conversation. During the entry patient was alert and oriented to person only therefore unable to participate in interview however she denied having any pain anywhere. According to the record parent she also had a fall about 2 weeks ago and the facility may feel at this time that she does have a urinary tract infection. In the ER, her sodium is noted to be quite elevated at 165, creatinine 1.49, glucose 545 magnesium 2.7, urinalysis with positive nitrates and 15-29 wbc's. She was started on D5W at 125 an hour and repeat sodium was 166. She also received insulin and a dose of cefepime. Her vital signs have been stable. She will be admitted for further management and treatment of acute hypernatremia. Review of Systems Review of Systems: Yes Unobtainable due to mental status [facility] Medical History Coronary artery disease DVT (deep venous thrombosis) Glaucoma Neuropathy Non-insulin dependent diabetes mellitus Pulmonary embolism Vascular dementia Pertinent family history: unable to obtain as patient has dementia Social History Alcohol intake: former Patient Tobacco Use Status: Former Tobacco user Use of substances other than those prescribed or required for medical reasons: No Advance Directives: No Advance Directives Information Provided: No Meds Allergies Allergy/AdvReac Type Severity Reaction Status Date / Time Penicillins Allergy Hives Verified 04/17/21 16:26 Active Medications: Current Medications Dextrose (D5w) 1,000 mls @ 80 mls/hr IVCONT .[id number] REFUGIO Last Admin: 02/26/22 11:25 Dose: 125 mls/hr Home Medications Medication Instructions Recorded Confirmed Last Taken Type acetaminophen 325 mg tablet 650 mg PO Q6H PRN Dehydration 02/26/22 02/26/22 Unknown History apixaban 5 mg tablet 5 mg PO BID 02/26/22 02/26/22 02/25/22 20:00 History brimonidine 0.2 % eye drops 1 drp ophthalmic (eye) DAILY 02/26/22 02/26/22 02/25/22 History duloxetine 30 mg capsule,delayed 30 mg PO BEDTIME 02/26/22 02/26/22 02/25/22 20:00 History release melatonin 3 mg tablet 3 mg PO BEDTIME PRN Sleep 02/26/22 02/26/22 Unknown History olanzapine 10 mg tablet 10 mg PO BEDTIME 02/26/22 02/26/22 02/25/22 History simvastatin 10 mg tablet 10 mg PO BEDTIME 02/26/22 02/26/22 02/25/22 History sitagliptin 50 mg tablet (Januvia) 50 mg PO DAILY 02/26/22 02/26/22 02/25/22 History timolol maleate 0.5 % eye drops 1 drp ophthalmic (eye) DAILY 02/26/22 02/26/22 02/25/22 20:00 History topiramate 25 mg tablet 25 mg PO BID 02/26/22 02/26/22 02/25/22 20:00 History trazodone 50 mg tablet 25 mg BEDTIME 02/26/22 02/26/22 02/25/22 History Physical Exam Vital Signs and Narrative: Vital Signs: Last Vital Signs Temp 98.1 F 02/26/22 11:51 Pulse 85 02/26/22 11:51 Resp 18 02/26/22 11:51 BP 137/59 L 02/26/22 11:51 Pulse Ox 97 02/26/22 11:51 O2 Del Method 02/26/22 11:51 BMI result Body Mass Index 26.6 Appearing in no acute distress head is normocephalic atraumatic eyes pupils are PERRLA sclera is anicteric mouth throat mucous membranes are intact and moist neck is supple no lymphadenopathy, no JVD noted lung sounds are clear to auscultation heart regular rate rhythm, clear S1, S2 positive bowel sounds, abdomen is soft, nontender neuro patient is alert x3, no focal deficits Results Labs CBC and Chem 7: 02/27/22 06:09 02/27/22 06:09 Labs: Laboratory Results - last 24 hr 02/26/22 02/26/22 02/26/22 09:08 10:06 10:07 MCV 96.5 MCH 28.9 MCHC 30.0 L RDW 13.5 Plt Count 228 MPV 10.1 Immature Gran % (Auto) 0.3 Neut % (Auto) 74.7 H Lymph % (Auto) 16.7 L [place] % (Auto) 8.0 Eos % (Auto) 0.2 Baso % (Auto) 0.1 Lymph # (Auto) 1.5 [place] # (Auto) 0.7 Eos # (Auto) 0.0 Baso # (Auto) 0.0 Abs Immat Gran (auto) 0.03 Absolute Neuts (auto) 6.8 Absolute Nucleated RBC 0.000 Nucleated RBC % (auto) 0.0 Anion Gap Estim Creat Clear Calc Estimated GFR POC Glucose 443 H* Random Glucose Lactic Acid Calcium Magnesium Total Bilirubin Direct Bilirubin AST ALT Alkaline Phosphatase Ammonia 22 Troponin I High Sens Total Protein Albumin Acetone, Qual COVID-19 (GONZALEZ) COVID-19 Clin Com Influenza Type A (MARIE) Influenza Type B (MARIE) Influenza A & B Note 02/26/22 02/26/22 02/26/22 10:07 10:07 10:09 MCV MCH MCHC RDW Plt Count MPV Immature Gran % (Auto) Neut % (Auto) Lymph % (Auto) [place] % (Auto) Eos % (Auto) Baso % (Auto) Lymph # (Auto) [place] # (Auto) Eos # (Auto) Baso # (Auto) Abs Immat Gran (auto) Absolute Neuts (auto) Absolute Nucleated RBC Nucleated RBC % (auto) Anion Gap 17 Estim Creat Clear Calc 38.3 Estimated GFR 34 POC Glucose Random Glucose 545 H* D Lactic Acid Calcium 10.1 D Magnesium 2.7 H Total Bilirubin 0.5 Direct Bilirubin 0.2 AST 8 ALT 12 Alkaline Phosphatase 109 D Ammonia Troponin I High Sens 3.6 Total Protein 8.3 H D Albumin 4.2 Acetone, Qual Negative COVID-19 (GONZALEZ) Negative COVID-19 Clin Com See Note Influenza Type A (MARIE) Influenza Type B (MARIE) Influenza A & B Note 02/26/22 02/26/22 02/26/22 10:09 12:21 12:33 MCV MCH MCHC RDW Plt Count MPV Immature Gran % (Auto) Neut % (Auto) Lymph % (Auto) [place] % (Auto) Eos % (Auto) Baso % (Auto) Lymph # (Auto) [place] # (Auto) Eos # (Auto) Baso # (Auto) Abs Immat Gran (auto) Absolute Neuts (auto) Absolute Nucleated RBC Nucleated RBC % (auto) Anion Gap Estim Creat Clear Calc Estimated GFR POC Glucose 355 H* Random Glucose Lactic Acid 2.0 Calcium Magnesium Total Bilirubin Direct Bilirubin AST ALT Alkaline Phosphatase Ammonia Troponin I High Sens Total Protein Albumin Acetone, Qual COVID-19 (GONZALEZ) COVID-19 Clin Com Influenza Type A (MARIE) Negative Influenza Type B (MARIE) Negative Influenza A & B Note See Note Imaging Radiologist's Impressions: Impressions Chest X-Ray 02/26/22 10:40 IMPRESSION: Subtle opacities bilaterally right greater than left, a component which may be projectional representing summation of overlapping structures however atelectasis and/or infiltrates cannot be excluded. Head CT 02/26/22 10:44 IMPRESSION: No acute intracranial pathology. Chest X-Ray 02/26/22 12:48 IMPRESSION: Question retrosternal atelectasis or small infiltrate. Assessment and Plan (1) Acute hypernatremia: Status: Acute Plan 71 year old women with hypernatremia and acute encephalopathy Hypernatramia. 165 Likely from dehydration hyperglycemia with bs of 545, corrected na of 174 7 liter water deficit given D5W in the ED, switch to 1/2 ns for more volume repeat na 166 with bs of 315 so better. nephrology rec correction of no more than 10 points recheck BMP Q3H Acute metabolic encephalopathy. Secondary to hypernatremia Continue treatment for hypernatremia and this should resolve Patient does have a history of vascular dementia SHERYL secondary to hypovolemia continue fluids follow BMP diabetes mellitus ss, ada diet hx DVT on eliquis Vascular Dementia. Continue home medications Attending Dr. Vargas Full code DVT prophylaxis with Eliquis Patient likely requires 2 midnights in the hospital for treatment of severe hypernatremia secondary to hypovolemia, dehydration requiring IV fluid hydration and frequent monitoring of electrolytes. Quality Stroke Does the patient have a stroke diagnosis?: No VTE Prior VTE?: No VTE Risk Level:: Medical - moderate - high VTE Device Contraindication: Treatment Not Indicated VTE Drug Contraindication: N/A - Med Ordered
[2022-02-26 13:47] LABS: Appearance Urine CLEAR; Color Urine YELLOW; Glucose Urine UA >=1000 MG/DL (NEG); Leukocyte Esterase Urine NEG (NEG); Nitrite Urine POS (NEG); PH 5.5 (5.0-8.0); UACC Culture Trigger YES; Urine Blood 1+ (NEG); Urine Ketones NEG (NEG); Urine Protein NEG (NEG-TRACE)
--- NOTE | 2022-02-26 13:52 | PC.NURSE ---
patient straight cathed for U .A ., vagina covered with white discharge . cleaned patient prior .patient tolerated well . sample sent to lab for analysis . results pending . provider aware . patient resting comfortable
[2022-02-26 14:04] LABS: Bacteria Urine 4+ /LPF; RBC Urine 0-2 /HPF (0); Squamous Epithelial Cell Urine TRACE /LPF
[2022-02-26 14:05] LABS: Mucus Urine TRACE /LPF; WBC Clumps Urine NOTED
[2022-02-26 14:32] LABS: Sodium 166 mmol/L (135-145)
[2022-02-26 14:45] LABS: Glucose, Whole Blood 315 mg/dL (60-115)
[2022-02-26 15:11] VITALS: BP 119/62; PULSE 85; RESP 16; O2SAT 97
[2022-02-26] MEDS: Sodium Chloride 0.45 % 1,000 ML 80 ML IVCONT (15:11)
[2022-02-26 15:24] LABS: Anion Gap 14 (12-20); Blood Urea Nitrogen 43 mg/dL (9-16); Calcium 9.6 mg/dL (8.4-10.2); Carbon Dioxide 27 mmol/L (22-29); Chloride 129 mmol/L (96-108); Creatinine Clr Calc Pharmacy 47.2; Estimated Glomerular Filt Rate 44; Glucose Random 375 mg/dL (60-115); Potassium 3.7 mmol/L (3.3-5.1); Sodium 166 mmol/L (135-145)
--- NOTE | 2022-02-26 15:52 | PC.NURSE ---
patient had episode of vomiting noted to Osvaldo 30's for minutes , patient reposition semi fowlers . HR 130 AFIB MD. Newell at bedside . New orderes to be placed . pt reveales most days she drinks a gallon of milk a day . After 5 minutes and several episodes vomiting patients normal sinus rhythm 80 's . continue to monitor .
[2022-02-26 16:37] LABS: Glucose, Whole Blood 240 mg/dL (60-115)
[2022-02-26] MEDS: Insulin Lispro 100 UNIT/ML 3 ML VIAL SUBCUT ×2 (16:44→20:48)
--- NOTE | 2022-02-26 18:00 | PC.NURSE ---
Emerald from case management for elder services called for update on status and plan of care , I informed her that patient will be admitted for hypernatremia , SHERYL , pneumonia . She will make family aware . Patient alert and awake . Tolerating fluids well . continue to monitor .
[2022-02-26 19:58] LABS: Glucose, Whole Blood 175 mg/dL (60-115)
[2022-02-26 21:06] LABS: Sodium 164 mmol/L (135-145)
[2022-02-26 22:54] VITALS: BP 138/62; PULSE 80; RESP 20; TEMP 37.3; O2SAT 93
[2022-02-27] MEDS: Sodium Chloride 0.45 % 1,000 ML 80 ML IVCONT (04:01)
[2022-02-27 06:06] VITALS: BP 145/56; PULSE 82; RESP 14; TEMP 37.1; O2SAT 94
[2022-02-27 06:13] LABS: MANUAL DIFF FLAG NO
[2022-02-27 06:17] LABS: Basophils Percent Auto 0.1 % (0-2); Eosinophils Percent Auto 0.4 % (0-4); Hematocrit 40.2 % (37.0-47.0); Hemoglobin 12.3 g/dl (12.0-16.0); Imm Gran Abs Auto 0.03 X10*3/uL (0.00-0.03); Imm Gran Pct Auto 0.3 % (0.0-0.4); Lymphocytes Absolute Auto 2.1 X10*3/uL (1.2-4.9); Lymphocytes Percent Auto 18.4 % (20-40); Mean Corpuscular HGB Conc 30.6 g/dl (31.0-35.0); Mean Corpuscular Hemoglobin 29.4 pg (27.0-33.0); Mean Corpuscular Volume 96.2 fL (80.0-98.0); Mean Platelet Volume 9.9 fL (9.4-12.3); Monocytes Absolute Auto 0.8 X10*3/uL (0.1-1.2); Monocytes Percent Auto 7.3 % (2-11); Neutrophils Absolute Auto 8.2 x10*3/uL (2.0-8.3); Neutrophils Percent Auto 73.5 % (45-73); Platelet Count 190 X10*3/uL (160-400); Red Blood Count 4.18 X10*6/uL (4.20-5.50); Red Cell Distribution Width 13.6 % (11.0-16.0); White Blood Count 11.2 X10*3/uL (4.8-10.8)
[2022-02-27 06:50] LABS: Magnesium 2.2 mg/dL (1.6-2.6)
[2022-02-27 07:05] VITALS: BP 144/72; PULSE 75; RESP 17; O2SAT 98
[2022-02-27 07:16] LABS: Anion Gap 12 (12-20); Blood Urea Nitrogen 39 mg/dL (9-16); Calcium 8.8 mg/dL (8.4-10.2); Carbon Dioxide 25 mmol/L (22-29); Chloride 127 mmol/L (96-108); Creatinine Clr Calc Pharmacy 52.4; Estimated Glomerular Filt Rate 49; Glucose Random 402 mg/dL (60-115); Potassium 3.5 mmol/L (3.3-5.1); Sodium 160 mmol/L (135-145)
--- NOTE | 2022-02-27 07:18 | PC.NURSE ---
Provider Esthela Trotter made aware of POCT 362. will give 10 ordered 10 units with AM meds.
[2022-02-27 07:20] LABS: Glucose, Whole Blood 362 mg/dL (60-115)
[2022-02-27] MEDS: Insulin Lispro 100 UNIT/ML 3 ML VIAL SUBCUT ×7 (07:24→20:37)
[2022-02-27 09:02] LABS: Estimated Average Glucose 289 mg/dL; Hemoglobin A1c % 11.7 %
[2022-02-27] MEDS: Topiramate 25 MG TABLET PO ×2 (09:54→20:35)
[2022-02-27] MEDS: Apixaban 5 MG TABLET PO ×2 (09:54→20:36)
--- NOTE | 2022-02-27 10:08 | PC.NURSE ---
Pt resting in stretcher. Medicated per NOV. Pt takes med whole with water. No complaints of pain or discomfort at this time. pt is alert to self, on room air. Awaiting transfer to overflow unit.
[2022-02-27 11:30] VITALS: BP 128/71; PULSE 79; RESP 15; TEMP 36.4; O2SAT 97
[2022-02-27 11:56] VITALS: BP 145/70; PULSE 83; RESP 21; TEMP 36.2; O2SAT 94
--- NOTE | 2022-02-27 12:10 | HO.PM.IMPN ---
Subjective Subjective Date of Service: 02/28/22 <Esthela Trotter NP - Last Filed: 02/28/22 07:53> 03/01/22 <Bakari Pringle MD - Last Filed: 03/01/22 08:43> Review of Systems Follow up hypernatremia pleasantly demented <Esthela Trotter NP - Last Filed: 02/28/22 07:53> Physical Exam Vital Signs: Vital Signs: Last Vital Signs Temp 97.2 F 02/27/22 11:56 Pulse 83 02/27/22 11:56 Resp 21 H 02/27/22 11:56 BP 145/70 H 02/27/22 11:56 Pulse Ox 94 02/27/22 11:56 O2 Del Method 02/27/22 11:56 O2 Flow Rate 2 02/27/22 07:05 BMI result Body Mass Index 26.6 <Esthela Trotter NP - Last Filed: 02/28/22 07:53> Appearing in no acute distress lung sounds are clear to auscultation heart regular rate rhythm, clear S1, S2 positive bowel sounds, abdomen is soft, nontender neuro patient is alert <Esthela Trotter NP - Last Filed: 02/28/22 07:53> Objective Data Active Medications Acetaminophen (Acetaminophen 325 Mg Tablet) 650 mg PO Q6H PRN PRN Reason: Pain, Mild (Pain Scale 1-3) Apixaban (Apixaban 5 Mg Tablet) 5 mg PO BID [facility] Last Admin: 02/27/22 09:54 Dose: 5 mg Documented By: LEVON Atorvastatin Calcium (Atorvastatin Calcium 10 Mg Tablet) 10 mg PO BEDTIME [facility] Brimonidine Tartrate (Brimonidine Tartrate 0.2% Oph 5 Ml Bottle) 1 drop EYE-BOTH DAILY [facility] Last Admin: 02/27/22 09:55 Dose: Not Given Documented By: LEVON Non-Admin Reason: Med Not Available Dextrose (Dextrose 50 % 25 Gm/50 Ml Syringe) 25 gm IVPUSH Q15M PRN; Protocol PRN Reason: per Hypoglycemia Standing Ord. Duloxetine HCl (Duloxetine Hcl 30 Mg Capsule.Dr) 30 mg PO BEDTIME [facility] Glucose (Glucose Gel 15 Gm Gel..Gram.) 15 gm PO Q15M PRN; Protocol PRN Reason: per Hypoglycemia Standing Ord. Ceftriaxone Sodium 1 gm/ (Sodium Chloride) 50 mls @ 100 mls/hr IV Q24H REFUGIO Sodium Chloride () 1,000 mls @ 80 mls/hr IVCONT .[id number] [facility] Last Admin: 02/27/22 04:01 Dose: 80 mls/hr Documented By: MUSA Insulin Human Lispro (Insulin Lispro 100 Unit/Ml 3 Ml Vial) 0 unit SUBCUT QIDACHS [facility]; Protocol Last Admin: 02/27/22 07:24 Dose: 10 unit Documented By: LEVON Insulin Human Lispro (Insulin Lispro 100 Unit/Ml 3 Ml Vial) 5 unit SUBCUT QIDACHS [facility] Melatonin (Melatonin 3 Mg Tablet) 3 mg PO BEDTIME PRN PRN Reason: Sleep Olanzapine (Olanzapine 10 Mg Tablet) 10 mg PO BEDTIME [facility] Ondansetron HCl (Ondansetron Hcl 4 Mg/2 Ml Vial) 4 mg IVPUSH Q8H PRN PRN Reason: Nausea and Vomiting Sodium Chloride (0.9 % Sodium Chloride Flush 3 Ml Syringe) 3 ml IVFLUSH QSHIFT [facility] Last Admin: 02/27/22 07:25 Dose: Not Given Documented By: LEVON Non-Admin Reason: IV Running Timolol Maleate (Timolol Maleate 0.5 % Oph Rina 5 Ml Drbtl) 1 drop EYE-BOTH DAILY [facility] Last Admin: 02/27/22 09:55 Dose: Not Given Documented By: LEVON Non-Admin Reason: Med Not Available Topiramate (Topiramate 25 Mg Tablet) 25 mg PO BID [facility] Last Admin: 02/27/22 09:54 Dose: 25 mg Documented By: LEVON Trazodone HCl (Trazodone Hcl 25 Mg Halftab) 25 mg PO BEDTIME [facility] <Esthela Trotter NP - Last Filed: 02/28/22 07:53> Labs CBC & Chem 7: : 02/27/22 06:09 03/01/22 06:19 <Esthela Trotter NP - Last Filed: 02/28/22 07:53> Labs: Laboratory Results - last 24 hr 02/26/22 02/26/22 02/26/22 09:08 12:21 12:33 MCV MCH MCHC RDW Plt Count MPV Immature Gran % (Auto) Neut % (Auto) Lymph % (Auto) [place] % (Auto) Eos % (Auto) Baso % (Auto) Lymph # (Auto) [place] # (Auto) Eos # (Auto) Baso # (Auto) Abs Immat Gran (auto) Absolute Neuts (auto) Absolute Nucleated RBC Nucleated RBC % (auto) Anion Gap Estim Creat Clear Calc Estimated GFR POC Glucose 443 H* 355 H* Random Glucose Estimat Average Glucose Hemoglobin A1c % Lactic Acid 2.0 Calcium Magnesium Urine Color Urine Appearance Urine pH Ur Specific [place] Urine Protein Urine Glucose (UA) Urine Ketones Urine Blood Urine Nitrite Ur Leukocyte Esterase Urine RBC Urine WBC Urine WBC Clumps Ur Squamous Epith Cells Urine Bacteria Urine Mucus 02/26/22 02/26/22 02/26/22 13:35 14:41 14:52 MCV MCH MCHC RDW Plt Count MPV Immature Gran % (Auto) Neut % (Auto) Lymph % (Auto) [place] % (Auto) Eos % (Auto) Baso % (Auto) Lymph # (Auto) [place] # (Auto) Eos # (Auto) Baso # (Auto) Abs Immat Gran (auto) Absolute Neuts (auto) Absolute Nucleated RBC Nucleated RBC % (auto) Anion Gap 14 Estim Creat Clear Calc 47.2 Estimated GFR 44 POC Glucose 315 H Random Glucose 375 H* Estimat Average Glucose Hemoglobin A1c % Lactic Acid Calcium 9.6 Magnesium Urine Color YELLOW Urine Appearance CLEAR Urine pH 5.5 Ur Specific [place] 1.020 Urine Protein NEG Urine Glucose (UA) >=1000 H Urine Ketones NEG Urine Blood 1+ H Urine Nitrite POS H Ur Leukocyte Esterase NEG Urine RBC 0-2 Urine WBC 15-29 H Urine WBC Clumps NOTED Ur Squamous Epith Cells TRACE Urine Bacteria 4+ Urine Mucus TRACE 02/26/22 02/26/22 02/27/22 16:34 19:54 06:09 MCV MCH MCHC RDW Plt Count MPV Immature Gran % (Auto) Neut % (Auto) Lymph % (Auto) [place] % (Auto) Eos % (Auto) Baso % (Auto) Lymph # (Auto) [place] # (Auto) Eos # (Auto) Baso # (Auto) Abs Immat Gran (auto) Absolute Neuts (auto) Absolute Nucleated RBC Nucleated RBC % (auto) Anion Gap 12 Estim Creat Clear Calc 52.4 Estimated GFR 49 POC Glucose 240 H 175 H Random Glucose 402 H* Estimat Average Glucose Hemoglobin A1c % Lactic Acid Calcium 8.8 D Magnesium Urine Color Urine Appearance Urine pH Ur Specific [place] Urine Protein Urine Glucose (UA) Urine Ketones Urine Blood Urine Nitrite Ur Leukocyte Esterase Urine RBC Urine WBC Urine WBC Clumps Ur Squamous Epith Cells Urine Bacteria Urine Mucus 02/27/22 02/27/22 02/27/22 06:09 06:09 06:09 MCV 96.2 MCH 29.4 MCHC 30.6 L RDW 13.6 Plt Count 190 MPV 9.9 Immature Gran % (Auto) 0.3 Neut % (Auto) 73.5 H Lymph % (Auto) 18.4 L [place] % (Auto) 7.3 Eos % (Auto) 0.4 Baso % (Auto) 0.1 Lymph # (Auto) 2.1 [place] # (Auto) 0.8 Eos # (Auto) 0.0 Baso # (Auto) 0.0 Abs Immat Gran (auto) 0.03 Absolute Neuts (auto) 8.2 Absolute Nucleated RBC 0.000 Nucleated RBC % (auto) 0.0 Anion Gap Estim Creat Clear Calc Estimated GFR POC Glucose Random Glucose Estimat Average Glucose 289 Hemoglobin A1c % 11.7 Lactic Acid Calcium Magnesium 2.2 Urine Color Urine Appearance Urine pH Ur Specific [place] Urine Protein Urine Glucose (UA) Urine Ketones Urine Blood Urine Nitrite Ur Leukocyte Esterase Urine RBC Urine WBC Urine WBC Clumps Ur Squamous Epith Cells Urine Bacteria Urine Mucus 02/27/22 07:12 MCV MCH MCHC RDW Plt Count MPV Immature Gran % (Auto) Neut % (Auto) Lymph % (Auto) [place] % (Auto) Eos % (Auto) Baso % (Auto) Lymph # (Auto) [place] # (Auto) Eos # (Auto) Baso # (Auto) Abs Immat Gran (auto) Absolute Neuts (auto) Absolute Nucleated RBC Nucleated RBC % (auto) Anion Gap Estim Creat Clear Calc Estimated GFR POC Glucose 362 H* Random Glucose Estimat Average Glucose Hemoglobin A1c % Lactic Acid Calcium Magnesium Urine Color Urine Appearance Urine pH Ur Specific [place] Urine Protein Urine Glucose (UA) Urine Ketones Urine Blood Urine Nitrite Ur Leukocyte Esterase Urine RBC Urine WBC Urine WBC Clumps Ur Squamous Epith Cells Urine Bacteria Urine Mucus <Esthela Trotter NP - Last Filed: 02/28/22 07:53> Microbiology Microbiology Results: Microbiology 02/26/22 14:10 Urine Culture - Preliminary Urine Catheterized - Orellana Catheter Gram negative colton <Esthela Trotter NP - Last Filed: 02/28/22 07:53> Assessment and Plan (1) Acute hypernatremia: Status: Acute <Esthela Trotter NP - Last Filed: 02/28/22 07:53> Assessment and Plan: 71 year old women with hypernatremia and acute encephalopathy Hypernatramia. 165 Likely from dehydration hyperglycemia with bs of 545, corrected na of 174 7 liter water deficit given D5W in the ED, switched to 1/2 ns for more volume nephrology following recheck BMP Q3H Acute metabolic encephalopathy.? Secondary to hypernatremia Continue treatment for hypernatremia and this should resolve Patient does have a history of vascular dementia SHERYL. significantly improved secondary to hypovolemia continue fluids follow BMP diabetes mellitus ss, ada diet hx DVT on eliquis Vascular Dementia. Continue home medications Attending Dr. Pringle Full code DVT prophylaxis with Eliquis Patient requires continued hospitalization for treatment of severe hypernatremia secondary to hypovolemia, dehydration requiring IV fluid hydration and frequent monitoring of electrolytes. <Esthela Trotter NP - Last Filed: 02/28/22 07:53> Quality Stroke Does the patient have a stroke diagnosis?: No <Esthela Trotter NP - Last Filed: 02/28/22 07:53> VTE Prior VTE?: No <Esthela Trotter NP - Last Filed: 02/28/22 07:53> VTE Risk Level:: Medical - moderate - high <Esthela Trotter NP - Last Filed: 02/28/22 07:53> VTE Device Contraindication: Treatment Not Indicated <Esthela Trotter NP - Last Filed: 02/28/22 07:53> VTE Drug Contraindication: N/A - Med Ordered <Esthela Trotter NP - Last Filed: 02/28/22 07:53>
[2022-02-27 12:13] LABS: Glucose, Whole Blood 289 mg/dL (60-115)
[2022-02-27] MEDS: cefTRIAXone sodium 1 GM in 0.9 % Sodium Chloride 50 ML IV (12:48)
--- NOTE | 2022-02-27 13:23 | MHC.CM.PN ---
met with pt in ed overflow pt comes [facility] where she will return when dcd
[2022-02-27 13:25] LABS: Anion Gap 14 (12-20); Blood Urea Nitrogen 39 mg/dL (9-16); Calcium 8.6 mg/dL (8.4-10.2); Carbon Dioxide 23 mmol/L (22-29); Chloride 123 mmol/L (96-108); Creatinine Clr Calc Pharmacy 55.4; Estimated Glomerular Filt Rate 53; Glucose Random 362 mg/dL (60-115); Potassium 3.7 mmol/L (3.3-5.1); Sodium 156 mmol/L (135-145)
--- NOTE | 2022-02-27 13:28 | PC.NURSE ---
OVERFLOW CALLED AND NOTIFIED OF BLOOD GLUCOSE OF 362
--- NOTE | 2022-02-27 15:23 | PC.NURSE ---
REPORT GIVEN TO EVERTON PEREZ. PT WILL BE TRANSFERRED TO ROOM 468.
[2022-02-27 15:30] LABS: Anion Gap 16 (12-20); Blood Urea Nitrogen 33 mg/dL (9-16); Calcium 8.8 mg/dL (8.4-10.2); Carbon Dioxide 22 mmol/L (22-29); Chloride 123 mmol/L (96-108); Creatinine Clr Calc Pharmacy 58.8; Estimated Glomerular Filt Rate 57; Glucose Random 275 mg/dL (60-115); Potassium 4.5 mmol/L (3.3-5.1); Sodium 156 mmol/L (135-145)
[2022-02-27 16:00] VITALS: BP 140/65; PULSE 83; RESP 18; TEMP 37.1; O2SAT 98
[2022-02-27 16:41] LABS: Glucose, Whole Blood 200 mg/dL (60-115)
--- NOTE | 2022-02-27 18:19 | PC.NURSE ---
This nurse attempted to gather history of pt, pt is poor historian and only oriented by self. Pt. comes from [facility]. This nurse attempted admission risk assessment, filing information when appropriate.
[2022-02-27 19:13] VITALS: BP 137/61; PULSE 96; RESP 18; TEMP 37.1; O2SAT 96
[2022-02-27 19:56] LABS: Glucose, Whole Blood 173 mg/dL (60-115)
[2022-02-27] MEDS: Atorvastatin Calcium 10 MG TABLET PO (20:35)
[2022-02-27] MEDS: DULoxetine HCl 30 MG CAPSULE.DR PO (20:36)
[2022-02-27] MEDS: traZODone HCL 25 MG HALFTAB PO (20:36)
[2022-02-27] MEDS: OLANZapine 10 MG TABLET PO (20:36)
[2022-02-27] MEDS: 0.9 % Sodium Chloride Flush 3 ML SYRINGE IVFLUSH (20:41)
[2022-02-28] VITALS (7 sets, daily range): BP systolic 109–175; BP diastolic 54–83; PULSE 68–84; RESP 15–18; TEMP 36.1–37.3; O2SAT 92–97; BMI 26.6
[2022-02-28] MEDS: Sodium Chloride 0.45 % 1,000 ML 80 ML IVCONT (04:24)
[2022-02-28 07:53] LABS: Glucose, Whole Blood 231 mg/dL (60-115)
[2022-02-28] MEDS: Insulin Lispro 100 UNIT/ML 3 ML VIAL SUBCUT ×7 (08:21→21:34)
[2022-02-28] MEDS: 0.9 % Sodium Chloride Flush 3 ML SYRINGE IVFLUSH ×3 (08:22→21:34)
[2022-02-28] MEDS: timoloL maleate 0.5 % Oph Sol 5 ML DRBTL 1 DROP EYE-BOTH (08:22)
[2022-02-28] MEDS: Apixaban 5 MG TABLET PO ×2 (08:22→21:33)
[2022-02-28] MEDS: Topiramate 25 MG TABLET PO ×2 (08:22→21:33)
[2022-02-28] MEDS: Brimonidine Tartrate 0.2% Oph 5 ML BOTTLE 1 DROP EYE-BOTH (08:22)
[2022-02-28 09:42] LABS: Anion Gap 14 (12-20); Blood Urea Nitrogen 28 mg/dL (9-16); Calcium 8.1 mg/dL (8.4-10.2); Carbon Dioxide 22 mmol/L (22-29); Chloride 116 mmol/L (96-108); Creatinine Clr Calc Pharmacy 71.4; Estimated Glomerular Filt Rate > 60; Glucose Random 283 mg/dL (60-115); Sodium 148 mmol/L (135-145)
--- NOTE | 2022-02-28 10:04 | MHC.CLN ---
RE: CONSULT PT WITH INCREASED NUTRITION RISK R/T PRESSURE INJURY PO INTAKE 75% X 1 MEAL DIET RX: 2GM NA -RECOMMEND 2000DM DIET 2GM NA DIET R/T DM IN ADDITION; RECOMMEND ADDING GLUCERNA BID TO INCREASE KCALS AND PROMOTE WOUND HEALING SUPP TO PROVIDE 474KCALS, 20G PROTEIN MONITOR PO INTAKE CLOSELY SEE ALSO FULL CLINICAL NUTRITION ASSESSMENT
--- NOTE | 2022-02-28 10:27 | PM.PNNEP ---
Subjective Subjective Date of Service: 02/28/22 Interval history: Events noted More alert Physical Exam Vital Signs: Vital Signs: Last Vital Signs Temp 97.4 F 02/28/22 08:00 Pulse 75 02/28/22 08:00 Resp 18 02/28/22 08:00 BP 137/72 02/28/22 08:00 Pulse Ox 97 02/28/22 08:00 O2 Del Method 02/28/22 08:00 O2 Flow Rate 2 02/27/22 07:05 BMI result Body Mass Index 26.6 Objective Data Labs CBC & Chem 7: 02/27/22 06:09 02/28/22 08:37 Labs: Laboratory Results - last 24 hr 02/27/22 02/27/22 02/27/22 12:10 12:49 14:58 Sodium 156 H 156 H Potassium 3.7 4.5 D Chloride 123 H 123 H Carbon Dioxide 23 22 Anion Gap 14 16 BUN 39 H 33 H Creatinine 1.03 0.97 Estim Creat Clear Calc 55.4 58.8 Estimated GFR 53 57 POC Glucose 289 H Random Glucose 362 H* 275 H Calcium 8.6 8.8 02/27/22 02/27/22 02/28/22 16:30 19:15 07:08 Sodium Potassium Chloride Carbon Dioxide Anion Gap BUN Creatinine Estim Creat Clear Calc Estimated GFR POC Glucose 200 H 173 H 231 H Random Glucose Calcium 02/28/22 08:37 Sodium 148 H Potassium 4.0 Chloride 116 H Carbon Dioxide 22 Anion Gap 14 BUN 28 H Creatinine 0.80 Estim Creat Clear Calc 71.4 Estimated GFR > 60 POC Glucose Random Glucose 283 H Calcium 8.1 L D Microbiology Microbiology Results: Microbiology 02/26/22 14:10 Urine Catheterized - Orellana Catheter Urine Culture - Final Escherichia coli 02/26/22 12:22 Blood - Venous Blood Culture - Preliminary No growth after 24 hours. 02/26/22 12:29 Blood - Venous Blood Culture - Preliminary No growth after 24 hours. Procedures Date of Service Date of Service: 02/28/22 Assessment & Plan Assessment and plan (1) Acute hypernatremia: Status: Acute Plan 71 year old women with hypernatremia and encephalopathy Hypernatramia. Na is gradually correcting RAte of correction acceptable Keep 1/2NS and I>O Encourage PO water intake Check pNa q 8 hrly metabolic encephalopathy.? Secondary to hypernatremia Improving SHERYL. secondary to hypovolemia Improving with fluids continue fluids diabetes mellitus Watch for glycosuria and optimize blood sugar Time Spent With Patient Time: Total time spent is greater than 50% in coordination of care (as documented) at patient's floor/unit and/or counseling patient: Progress Note: Quality Stroke Does the patient have a stroke diagnosis?: No
--- NOTE | 2022-02-28 11:21 | CONS_ITS ---
DATE OF SERVICE: 02/27/2022 REASON FOR CONSULTATION: I was called to see this patient today to assist with management of hyponatremia. HISTORY OF PRESENT ILLNESS: To summarize, Yessy is a 71-year-old woman with a history of dementia. [facility] She comes in because of shakiness, unable to walk. She was found to have severe hyponatremia with hyperglycemia. She was started on half-normal saline. Sodium is gradually improving. Consultation has been requested for management of hyponatremia. Ongoing medical problems include history of vascular dementia, pulmonary embolism, diabetes mellitus, with neuropathy, history of coronary artery disease. SOCIAL HISTORY: She is a resident of [facility]. History of smoking in the past. Does not consume alcohol at present. ALLERGIES: TO PENICILLIN. MEDICATION: At time of admission duloxetine, olanzapine, simvastatin, sitagliptin, tropicamide, and trazodone. All the current medications were reviewed. REVIEW OF SYSTEMS: Obtained from the patient, but the patient is a poor historian. Most of the informations were obtained from the chart. Obviously, she has not been drinking enough fluids. No diarrhea. No constipation. No polyuria, polydipsia. PHYSICAL EXAMINATION: GENERAL: Yessy is a 71-year-old woman. She is awake, comfortable, not in distress. HEENT: Pupils react to light. Mucosa is dry. NECK: Supple. LUNGS: Air entry equal. No rales. HEART: S1, S2 [place]. No gallop. ABDOMEN: Soft, nontender. EXTREMITIES: No edema. No rash. No clubbing. VITAL SIGNS: Blood pressure is 140/70, pulse 75 per minute. LABORATORY DATA: Urinalysis shows specific gravity of 1.020 with glycosuria. Serum sodium was 160, potassium 3.5, BUN 13, creatinine 1.09. Blood sugar was 402. IMPRESSION: 71-year-old woman with severe hyperglycemia with dementia, comes in with hypernatremia due to decreased free water intake and increased free water excretion due to glycosuria. My recommendation will be to optimize the blood sugar. Continue IV hydration with hypotonic fluids. I agree with half-normal saline. The goal is to cut the serum sodium at a rate of 0.5 mmol/L per hour, not exceed more than 8 millimoles in a 24 hour period. Increased p.o. water intake. She had acute kidney injury, which is resolving with hydration. We will follow along with the team. Morris Oh MD BPA/MODL / [id number] MTDD
--- NOTE | 2022-02-28 11:27 | P.PNIM_ITS ---
Subjective Subjective Date of Service: 02/28/22 Review of Systems Follow up hypernatremia pleasantly demented Physical Exam Vital Signs: Vital Signs: Last Vital Signs Temp 97.4 F 02/28/22 08:00 Pulse 75 02/28/22 08:00 Resp 18 02/28/22 08:00 BP 137/72 02/28/22 08:00 Pulse Ox 97 02/28/22 08:00 O2 Del Method 02/28/22 08:00 O2 Flow Rate 2 02/27/22 07:05 BMI result Body Mass Index 26.6 Appearing in no acute distress lung sounds are clear to auscultation heart regular rate rhythm, clear S1, S2 positive bowel sounds, abdomen is soft, nontender neuro patient is alert x3, no focal deficits Objective Data Active Medications Acetaminophen (Acetaminophen 325 Mg Tablet) 650 mg PO Q6H PRN PRN Reason: Pain, Mild (Pain Scale 1-3) Apixaban (Apixaban 5 Mg Tablet) 5 mg PO BID [facility] Last Admin: 02/28/22 08:22 Dose: 5 mg Documented By: LEONORA Atorvastatin Calcium (Atorvastatin Calcium 10 Mg Tablet) 10 mg PO BEDTIME [facility] Last Admin: 02/27/22 20:35 Dose: 10 mg Documented By: SIXTO Brimonidine Tartrate (Brimonidine Tartrate 0.2% Oph 5 Ml Bottle) 1 drop EYE- BOTH DAILY [facility] Last Admin: 02/28/22 08:22 Dose: 1 drop Documented By: LEONORA Dextrose (Dextrose 50 % 25 Gm/50 Ml Syringe) 25 gm IVPUSH Q15M PRN; Protocol PRN Reason: per Hypoglycemia Standing Ord. Duloxetine HCl (Duloxetine Hcl 30 Mg Capsule.Dr) 30 mg PO BEDTIME [facility] Last Admin: 02/27/22 20:36 Dose: 30 mg Documented By: SIXTO Glucose (Glucose Gel 15 Gm Gel..Gram.) 15 gm PO Q15M PRN; Protocol PRN Reason: per Hypoglycemia Standing Ord. Ceftriaxone Sodium 1 gm/ (Sodium Chloride) 50 mls @ 100 mls/hr IV Q24H [facility] Last Infusion: 02/27/22 15:01 Dose: 0 mls/hr Documented By: AMY Sodium Chloride () 1,000 mls @ 80 mls/hr IVCONT .[id number] [facility] Last Admin: 02/28/22 04:24 Dose: 80 mls/hr Documented By: SIXTO Insulin Human Lispro (Insulin Lispro 100 Unit/Ml 3 Ml Vial) [facility]; Protocol Last Admin: 02/28/22 08:21 Dose: 4 unit Documented By: LEONORA Insulin Human Lispro (Insulin Lispro 100 Unit/Ml 3 Ml Vial) [facility] Last Admin: 02/28/22 08:21 Dose: 5 unit Documented By: LEONORA Melatonin (Melatonin 3 Mg Tablet) 3 mg PO BEDTIME PRN PRN Reason: Sleep Olanzapine (Olanzapine 10 Mg Tablet) 10 mg PO BEDTIME [facility] Last Admin: 02/27/22 20:36 Dose: 10 mg Documented By: SIXTO Ondansetron HCl (Ondansetron Hcl 4 Mg/2 Ml Vial) 4 mg IVPUSH Q8H PRN PRN Reason: Nausea and Vomiting Sodium Chloride (0.9 % Sodium Chloride Flush 3 Ml Syringe) 3 ml IVFLUSH QSHIFT [facility] Last Admin: 02/28/22 08:22 Dose: 3 ml Documented By: LEONORA Timolol Maleate (Timolol Maleate 0.5 % Oph Rina 5 Ml Drbtl) 1 drop EYE-BOTH DAILY [facility] Last Admin: 02/28/22 08:22 Dose: 1 drop Documented By: LEONORA Topiramate (Topiramate 25 Mg Tablet) 25 mg PO BID [facility] Last Admin: 02/28/22 08:22 Dose: 25 mg Documented By: LEONORA Trazodone HCl (Trazodone Hcl 25 Mg Halftab) 25 mg PO BEDTIME [facility] Last Admin: 02/27/22 20:36 Dose: 25 mg Documented By: SIXTO Labs CBC & Chem 7: 02/27/22 06:09 02/28/22 08:37 Labs: Laboratory Results - last 24 hr 02/27/22 02/27/22 02/27/22 12:10 12:49 14:58 Anion Gap 14 16 Estim Creat Clear Calc 55.4 58.8 Estimated GFR 53 57 POC Glucose 289 H Random Glucose 362 H* 275 H Calcium 8.6 8.8 02/27/22 02/27/22 02/28/22 16:30 19:15 07:08 Anion Gap Estim Creat Clear Calc Estimated GFR POC Glucose 200 H 173 H 231 H Random Glucose Calcium 02/28/22 08:37 Anion Gap 14 Estim Creat Clear Calc 71.4 Estimated GFR > 60 POC Glucose Random Glucose 283 H Calcium 8.1 L D Microbiology Microbiology Results: Microbiology 02/26/22 14:10 Urine Culture - Final Urine Catheterized - Orellana Catheter Escherichia coli 02/26/22 12:22 Blood Culture - Preliminary Blood - Venous No growth after 24 hours. 02/26/22 12:29 Blood Culture - Preliminary Blood - Venous No growth after 24 hours. Assessment and Plan (1) Acute hypernatremia: Status: Acute Plan 71 year old women with hypernatremia and acute encephalopathy Hypernatramia. 165 Likely from dehydration hyperglycemia with bs of 545, corrected na of 174 initially 7 liter water deficit given D5W in the ED, switched to 1/2 ns for more volume nephrology following 148 today continue 1/2 NS until na wnl recheck BMO this afternoon Diabetes mellitus with hyperglycemia Needs better control mealtime insuling added lantus 10 units added at bedtime ss, ada diet Acute metabolic encephalopathy.? Secondary to hypernatremia Continue treatment for hypernatremia and this should resolve Patient does have a history of vascular dementia SHERYL. Resolved secondary to hypovolemia continue fluids follow BMP hx DVT on eliquis Vascular Dementia. Continue home medications Attending Dr. Pringle Full code DVT prophylaxis with Eliquis Patient requires continued hospitalization for treatment of severe hypernatremia secondary to hypovolemia, dehydration requiring IV fluid hydration and frequent monitoring of electrolytes. Quality Stroke Does the patient have a stroke diagnosis?: No VTE Prior VTE?: No VTE Risk Level:: Medical - moderate - high VTE Device Contraindication: Treatment Not Indicated VTE Drug Contraindication: N/A - Med Ordered
[2022-02-28 11:29] LABS: Glucose, Whole Blood 351 mg/dL (60-115)
[2022-02-28] MEDS: cefTRIAXone sodium 1 GM in 0.9 % Sodium Chloride 50 ML IV (12:28)
--- NOTE | 2022-02-28 13:38 | PC.NURSE ---
Pt has not voided yet this shift with Purewick in place. Pt states feeling of pressure in low abdomen. Bladder scan >999ml, centered. Provider notified.
[2022-02-28 16:25] LABS: Sodium 148 mmol/L (135-145)
[2022-02-28 20:48] LABS: Glucose, Whole Blood 204 mg/dL (60-115)
[2022-02-28] MEDS: Atorvastatin Calcium 10 MG TABLET PO (21:33)
[2022-02-28] MEDS: OLANZapine 10 MG TABLET PO (21:33)
[2022-02-28] MEDS: DULoxetine HCl 30 MG CAPSULE.DR PO (21:33)
[2022-02-28] MEDS: traZODone HCL 25 MG HALFTAB PO (21:33)
[2022-03-01] VITALS (7 sets, daily range): BP systolic 104–121; BP diastolic 51–59; PULSE 74–88; RESP 14–20; TEMP 36.1–36.9; O2SAT 92–97
[2022-03-01 07:21] LABS: Anion Gap 12 (12-20); Blood Urea Nitrogen 21 mg/dL (9-16); Calcium 8.3 mg/dL (8.4-10.2); Carbon Dioxide 21 mmol/L (22-29); Chloride 117 mmol/L (96-108); Creatinine Clr Calc Pharmacy 73.2; Estimated Glomerular Filt Rate > 60; Glucose Random 263 mg/dL (60-115); Potassium 3.5 mmol/L (3.3-5.1); Sodium 146 mmol/L (135-145)
[2022-03-01 08:01] LABS: Glucose, Whole Blood 229 mg/dL (60-115)
[2022-03-01] MEDS: Insulin Lispro 100 UNIT/ML 3 ML VIAL SUBCUT ×8 (10:24→21:16)
[2022-03-01] MEDS: Apixaban 5 MG TABLET PO ×2 (10:25→21:16)
[2022-03-01] MEDS: Topiramate 25 MG TABLET PO ×2 (10:25→21:16)
[2022-03-01] MEDS: 0.9 % Sodium Chloride Flush 3 ML SYRINGE IVFLUSH ×2 (10:25→21:17)
[2022-03-01] MEDS: SITagliptin Phosphate 100 MG TABLET PO (10:28)
[2022-03-01] MEDS: Sodium Chloride 0.45 % 1,000 ML 80 ML IVCONT ×2 (10:34→22:35)
--- NOTE | 2022-03-01 10:56 | PM.PNNEP ---
Subjective Subjective Date of Service: 03/01/22 Interval history: Events noted More alert Physical Exam Vital Signs: Vital Signs: Last Vital Signs Temp 98.5 F 03/01/22 08:00 Pulse 75 03/01/22 08:00 Resp 18 03/01/22 08:00 BP 104/53 L 03/01/22 08:00 Pulse Ox 95 03/01/22 08:00 O2 Del Method 03/01/22 08:00 O2 Flow Rate 2 02/27/22 07:05 BMI result Body Mass Index 26.6 Const: General: no acute distress Neck: Neck: Yes normal visual inspection Resp: Effort & Inspection: normal respiratory effort and no respiratory distress Auscultation: clear to auscultation bilaterally Cardio: Rate: regular rate Heart sounds: S1 normal heart sound present and S2 normal heart sound present GI: Inspection: Yes normal to inspection Palpation (GI): Soft to palpation, nontender and no guarding Skin: Rashes: no rashes Wounds: no wounds Neuro: Other: Answering questions, repeating words General: tone normal and moves all extremities Extrem: General: Yes normal to inspection and Yes no pedal edema Objective Data Labs CBC & Chem 7: 02/27/22 06:09 03/01/22 06:19 Labs: Laboratory Results - last 24 hr 02/28/22 02/28/22 02/28/22 11:20 15:53 20:37 Sodium 148 H Potassium Chloride Carbon Dioxide Anion Gap BUN Creatinine Estim Creat Clear Calc Estimated GFR POC Glucose 351 H* 204 H Random Glucose Calcium 03/01/22 03/01/22 06:19 07:41 Sodium 146 H Potassium 3.5 Chloride 117 H Carbon Dioxide 21 L Anion Gap 12 BUN 21 H Creatinine 0.78 Estim Creat Clear Calc 73.2 Estimated GFR > 60 POC Glucose 229 H Random Glucose 263 H Calcium 8.3 L Microbiology Microbiology Results: Microbiology 02/26/22 12:22 Blood - Venous Blood Culture - Preliminary No growth after 48 hours. 02/26/22 12:29 Blood - Venous Blood Culture - Preliminary No growth after 48 hours. 02/26/22 14:10 Urine Catheterized - Orellana Catheter Urine Culture - Final Escherichia coli Procedures Date of Service Date of Service: 03/01/22 Assessment & Plan Assessment and plan (1) Acute hypernatremia: Status: Acute Plan 71 year old women with hypernatremia and encephalopathy Hypernatramia. Na is gradually correcting RAte of correction acceptable Encourage PO water intake Check pNa q 24 hrly metabolic encephalopathy.? Secondary to hypernatremia Improving SHERYL. secondary to hypovolemia Improving with fluids continue PO fluids diabetes mellitus Watch for glycosuria and optimize blood sugar Time Spent With Patient Time: Total time spent is greater than 50% in coordination of care (as documented) at patient's floor/unit and/or counseling patient: Progress Note: Quality Stroke Does the patient have a stroke diagnosis?: No
--- NOTE | 2022-03-01 11:26 | MHC.CM.PN ---
Per MD in [facility], Patient may not be able to return to a [facility] (BS in 400's, Ecoli UTI, PT EVAL Pending); CM will continue to follow.
[2022-03-01 11:33] LABS: Glucose, Whole Blood 317 mg/dL (60-115)
[2022-03-01] MEDS: Brimonidine Tartrate 0.2% Oph 5 ML BOTTLE 1 DROP EYE-BOTH (11:51)
[2022-03-01] MEDS: timoloL maleate 0.5 % Oph Sol 5 ML DRBTL 1 DROP EYE-BOTH (11:51)
[2022-03-01] MEDS: cefTRIAXone sodium 1 GM in 0.9 % Sodium Chloride 50 ML IV (14:09)
--- NOTE | 2022-03-01 14:21 | P.PNIM_ITS ---
Subjective Subjective Date of Service: 03/01/22 Interval History: just woke up this morning, offers no acute complaints, no acute events overnight, blood sugars in 200 range. Review of Systems Review of Systems: Yes Unobtainable due to mental status Physical Exam Vital Signs: Vital Signs: Last Vital Signs Temp 97.7 F 03/01/22 12:00 Pulse 74 03/01/22 12:00 Resp 20 03/01/22 12:00 BP 110/53 L 03/01/22 12:00 Pulse Ox 95 03/01/22 12:00 O2 Del Method 03/01/22 12:00 O2 Flow Rate 2 02/27/22 07:05 BMI result Body Mass Index 26.6 Const: Other: General Awake alert, in no acute distress. Neck no JVD. CVS regular rate rhythm, Respiratory lungs clear to auscultation, no respiratory distress, no wheeze, no rhonchi. Gastrointestinal abdomen soft, nontender, bowel sounds audible, no guarding , no rigidity. Extremities no edema. Neuro nonfocal, moving all 4 extremity, speech clear. Skin no rash psych poor insight Objective Data Active Medications Acetaminophen (Acetaminophen 325 Mg Tablet) 650 mg PO Q6H PRN PRN Reason: Pain, Mild (Pain Scale 1-3) Apixaban (Apixaban 5 Mg Tablet) 5 mg PO BID [facility] Last Admin: 03/01/22 10:25 Dose: 5 mg Documented By: DEMARIO Atorvastatin Calcium (Atorvastatin Calcium 10 Mg Tablet) 10 mg PO BEDTIME [facility] Last Admin: 02/28/22 21:33 Dose: 10 mg Documented By: ABHISHEK Brimonidine Tartrate (Brimonidine Tartrate 0.2% Oph 5 Ml Bottle) 1 drop EYE- BOTH DAILY [facility] Last Admin: 03/01/22 11:51 Dose: 1 drop Documented By: DEMARIO Dextrose (Dextrose 50 % 25 Gm/50 Ml Syringe) 25 gm IVPUSH Q15M PRN; Protocol PRN Reason: per Hypoglycemia Standing Ord. Duloxetine HCl (Duloxetine Hcl 30 Mg Capsule.) 30 mg PO BEDTIME [facility] Last Admin: 02/28/22 21:33 Dose: 30 mg Documented By: ABHISHEK Glucose (Glucose Gel 15 Gm Gel..Gram.) 15 gm PO Q15M PRN; Protocol PRN Reason: per Hypoglycemia Standing Ord. Ceftriaxone Sodium 1 gm/ (Sodium Chloride) 50 mls @ 100 mls/hr IV Q24H [facility] Last Admin: 03/01/22 14:09 Dose: 100 mls/hr Documented By: DEMARIO Sodium Chloride () 1,000 mls @ 80 mls/hr IVCONT .[id number] [facility] Last Admin: 03/01/22 10:34 Dose: 80 mls/hr Documented By: DEMARIO Insulin Human Lispro (Insulin Lispro 100 Unit/Ml 3 Ml Vial) 0 unit SUBCUT QIDACHS [facility]; Protocol Last Admin: 03/01/22 11:48 Dose: 8 unit Documented By: DEMARIO Insulin Human Lispro (Insulin Lispro 100 Unit/Ml 3 Ml Vial) 5 unit SUBCUT QIDACHS [facility] Last Admin: 03/01/22 11:48 Dose: 5 unit Documented By: DEMARIO Melatonin (Melatonin 3 Mg Tablet) 3 mg PO BEDTIME PRN PRN Reason: Sleep Olanzapine (Olanzapine 10 Mg Tablet) 10 mg PO BEDTIME [facility] Last Admin: 02/28/22 21:33 Dose: 10 mg Documented By: ABHISHEK Ondansetron HCl (Ondansetron Hcl 4 Mg/2 Ml Vial) 4 mg IVPUSH Q8H PRN PRN Reason: Nausea and Vomiting Sitagliptin Phosphate (Sitagliptin Phosphate 100 Mg Tablet) 100 mg PO DAILY [facility] Last Admin: 03/01/22 10:28 Dose: 100 mg Documented By: DEMARIO Sodium Chloride (0.9 % Sodium Chloride Flush 3 Ml Syringe) 3 ml IVFLUSH QSHIFT [facility] Last Admin: 03/01/22 10:25 Dose: 3 ml Documented By: DEMARIO Timolol Maleate (Timolol Maleate 0.5 % Oph Rina 5 Ml Drbtl) 1 drop EYE-BOTH DAILY [facility] Last Admin: 03/01/22 11:51 Dose: 1 drop Documented By: DEMARIO Topiramate (Topiramate 25 Mg Tablet) 25 mg PO BID [facility] Last Admin: 03/01/22 10:25 Dose: 25 mg Documented By: DEMARIO Trazodone HCl (Trazodone Hcl 25 Mg Halftab) 25 mg PO BEDTIME [facility] Last Admin: 02/28/22 21:33 Dose: 25 mg Documented By: ABHISHEK Labs CBC & Chem 7: 02/27/22 06:09 03/01/22 06:19 Labs: Laboratory Results - last 24 hr 02/28/22 03/01/22 03/01/22 20:37 06:19 07:41 Anion Gap 12 Estim Creat Clear Calc 73.2 Estimated GFR > 60 POC Glucose 204 H 229 H Random Glucose 263 H Calcium 8.3 L 03/01/22 11:22 Anion Gap Estim Creat Clear Calc Estimated GFR POC Glucose 317 H Random Glucose Calcium Microbiology Microbiology Results: Microbiology 02/26/22 12:22 Blood Culture - Preliminary Blood - Venous No growth after 48 hours. 02/26/22 12:29 Blood Culture - Preliminary Blood - Venous No growth after 48 hours. Assessment and Plan (1) Acute hypernatremia: Status: Acute Plan 71 year old women with hypernatremia and acute encephalopathy Hypernatramia. 165 Likely from dehydration, noted to have hyperglycemia with bs of 545, corrected na of 174 initially given D5W in the ED, switched to 1/2 ns sodium gradually improving 146 today continue 1/2 NS until na wnl , encourage by mouth fluid intake E coli UTI continue IV ceftriaxone day 3/5 Diabetes mellitus with hyperglycemia blood sugar in 200 range, hemoglobin A1c 11.7, will resume Januvia, receiving pre meal insulin, blood sugar and continue diabetic Acute metabolic encephalopathy.? Secondary to hypernatremia, E coli UTI seems to be at baseline with history of vascular dementia SHERYL. Resolved secondary to hypovolemia continue fluids, encourage by mouth intake follow BMP hx DVT on eliquis hyperlipidemia continue Lipitor Vascular Dementia. Continue home medications/ obtain PT eval for disposition [place] resident [facility] in [facility] Full code DVT prophylaxis with Eliquis Patient requires continued hospitalization for treatment of severe hypernatremia secondary to hypovolemia, dehydration requiring IV fluid hydration and frequent monitoring of electrolytes. Quality Stroke Does the patient have a stroke diagnosis?: No VTE Prior VTE?: No VTE Risk Level:: Medical - moderate - high VTE Device Contraindication: Treatment Not Indicated VTE Drug Contraindication: N/A - Med Ordered
--- NOTE | 2022-03-01 15:05 | MHC.CM.PN ---
PT is recommending STR; CM will continue to follow for dc planning.
[2022-03-01 17:07] LABS: Glucose, Whole Blood 232 mg/dL (60-115)
[2022-03-01 20:47] LABS: Glucose, Whole Blood 268 mg/dL (60-115)
[2022-03-01] MEDS: OLANZapine 10 MG TABLET PO (21:16)
[2022-03-01] MEDS: traZODone HCL 25 MG HALFTAB PO (21:16)
[2022-03-01] MEDS: DULoxetine HCl 30 MG CAPSULE.DR PO (21:16)
[2022-03-01] MEDS: Atorvastatin Calcium 10 MG TABLET PO (21:16)
[2022-03-02] VITALS (9 sets, daily range): BP systolic 107–128; BP diastolic 58–77; PULSE 69–80; RESP 16–18; TEMP 36.4–37.4; O2SAT 92–96
[2022-03-02] MEDS: polyethylene glycoL 3350 17 GM POWD.PACK PO (05:48)
[2022-03-02 07:36] LABS: Glucose, Whole Blood 294 mg/dL (60-115)
[2022-03-02 07:46] LABS: Anion Gap 11 (12-20); Blood Urea Nitrogen 21 mg/dL (9-16); Calcium 8.2 mg/dL (8.4-10.2); Carbon Dioxide 20 mmol/L (22-29); Chloride 115 mmol/L (96-108); Creatinine Clr Calc Pharmacy 73.2; Estimated Glomerular Filt Rate > 60; Glucose Random 342 mg/dL (60-115); Potassium 3.7 mmol/L (3.3-5.1); Sodium 142 mmol/L (135-145)
[2022-03-02] MEDS: Topiramate 25 MG TABLET PO ×2 (08:21→21:36)
[2022-03-02] MEDS: Brimonidine Tartrate 0.2% Oph 5 ML BOTTLE 1 DROP EYE-BOTH (08:22)
[2022-03-02] MEDS: timoloL maleate 0.5 % Oph Sol 5 ML DRBTL 1 DROP EYE-BOTH (08:22)
--- NOTE | 2022-03-02 08:26 | P.CDIC_ITS ---
CDI Concurrent Query Documentation Clarification: PHYSICIAN'S DOCUMENTATION REQUEST Date of Query: 03/02/22 0826 Patient Name: Yessy Prakash Admit Date: 02/26/22 Dear Doctor, A review of the medical record indicates additional documentation may be indicated. Please review below and update the documentation accordingly. Clinical Indicators: Risk Factors/Clinical Indicators/Treatments Wound care notes 02/28 - Pressure Injury Stage II right upper buttock. Slough, foam dressing. Based on the above, could you please provide, in the Progress Notes, further information regarding the ulcer/wound: * If a pressure ulcer, please also include the stage* of the ulcer: * Stage 1 - Skin intact, non-blanchable redness * Stage 2 - Partial thickness loss of dermis, includes intact or open blister * Stage 3 - Full thickness tissue not including bone, tendon, or muscle * Stage 4 - Full thickness tissue loss, including exposed bones, tendon, or muscle * Unstageable - Full thickness tissue loss in which the base of the ulcer is covered by slough (yellow, walters, medeiros, green or brown) and/or eschar (walters, brown, or black) in the wound bed. * Unable to determine *Source: National Pressure Ulcer Advisory Panel (NPUAP) Use of terms such as suspected, likely, concern for, or probable (associated with a specific diagnosis that is being evaluated, monitored, or treated as if it exists) are acceptable and can be coded in the inpatient setting, when documented at the time of discharge. Thank you, Christie Baron [facility], CDIS Extension: [phone] Please use your independent medical judgment in providing your response. THIS QUERY IS PART OF THE PERMANENT MEDICAL RECORD Provider Response: Other Other Diagnosis: stage II right upper buttock wound
--- NOTE | 2022-03-02 08:45 | MHC.CLN ---
F/U PT WITH INCREASED NUTRITION RISK R/T PRESSURE INJURY PO INTAKE 75-100% DIET RX: 2000DM 2GM NA -APPROPRIATE PT RECEIVING GLUCERNA BID TO INCREASE KCALS AND PROMOTE WOUND HEALING SUPP PROVIDES 474KCALS, 20G PROTEIN CONTINUE TO MONITOR PO INTAKE CLOSELY
[2022-03-02] MEDS: Insulin Lispro 100 UNIT/ML 3 ML VIAL SUBCUT ×7 (09:27→21:36)
[2022-03-02] MEDS: Apixaban 5 MG TABLET PO ×2 (09:29→21:36)
[2022-03-02] MEDS: SITagliptin Phosphate 100 MG TABLET PO (09:29)
[2022-03-02] MEDS: 0.9 % Sodium Chloride Flush 3 ML SYRINGE IVFLUSH ×3 (09:29→21:36)
--- NOTE | 2022-03-02 10:10 | MHC.CM.PN ---
BESS phoned [facility] and was directed to Administration (Katrin)at [phone]. CM has requested that a copy of Patient's HCP be faxed to CM. CM awaits a response.
--- NOTE | 2022-03-02 11:18 | PM.PNNEP ---
Subjective Subjective Date of Service: 03/02/22 Interval history: Events ntoed Physical Exam Vital Signs: Vital Signs: Last Vital Signs Temp 97.8 F 03/02/22 07:38 Pulse 69 03/02/22 09:56 Resp 18 03/02/22 07:38 BP 125/58 L 03/02/22 09:56 Pulse Ox 95 03/02/22 09:56 O2 Del Method 03/02/22 07:38 O2 Flow Rate 2 02/27/22 07:05 BMI result Body Mass Index 26.6 Const: General: no acute distress Neck: Neck: Yes normal visual inspection Resp: Effort & Inspection: normal respiratory effort and no respiratory distress Auscultation: clear to auscultation bilaterally Cardio: Rate: regular rate Heart sounds: S1 normal heart sound present and S2 normal heart sound present GI: Inspection: Yes normal to inspection Palpation (GI): Soft to palpation, nontender and no guarding Skin: Rashes: no rashes Wounds: no wounds Neuro: Other: Answering questions, repeating words General: tone normal and moves all extremities Extrem: General: Yes normal to inspection and Yes no pedal edema Objective Data Labs CBC & Chem 7: 02/27/22 06:09 03/02/22 06:46 Labs: Laboratory Results - last 24 hr 03/01/22 03/01/22 03/01/22 11:22 16:54 20:41 Sodium Potassium Chloride Carbon Dioxide Anion Gap BUN Creatinine Estim Creat Clear Calc Estimated GFR POC Glucose 317 H 232 H 268 H Random Glucose Calcium 03/02/22 03/02/22 06:46 07:26 Sodium 142 Potassium 3.7 Chloride 115 H Carbon Dioxide 20 L Anion Gap 11 L BUN 21 H Creatinine 0.78 Estim Creat Clear Calc 73.2 Estimated GFR > 60 POC Glucose 294 H Random Glucose 342 H Calcium 8.2 L Microbiology Microbiology Results: Microbiology 02/26/22 12:22 Blood - Venous Blood Culture - Preliminary No growth after 48 hours. 02/26/22 12:29 Blood - Venous Blood Culture - Preliminary No growth after 48 hours. 02/26/22 14:10 Urine Catheterized - Orellana Catheter Urine Culture - Final Escherichia coli Procedures Date of Service Date of Service: 03/02/22 Assessment & Plan Assessment and plan (1) Acute hypernatremia: Status: Acute Plan 71 year old women with hypernatremia and encephalopathy Hypernatramia. Na is gradually correcting RAte of correction acceptable Encourage PO water intake Check pNa as needed metabolic encephalopathy.? Secondary to hypernatremia Improving SHERYL. secondary to hypovolemia Improving with fluids continue PO fluids diabetes mellitus Watch for glycosuria and optimize blood sugar Time Spent With Patient Time: Total time spent is greater than 50% in coordination of care (as documented) at patient's floor/unit and/or counseling patient: Progress Note: Quality Stroke Does the patient have a stroke diagnosis?: No
--- NOTE | 2022-03-02 11:20 | MHC.CM.PN ---
PT is recommending STR. CM has left a detailed message for Patient's Guardian/Domi @ [facility] [employer] [facility] @ [phone], requesting a copy of the Guardianship, asking if the Guardianship has the clause permitting Guardian to admit to a SNF, and requesting her choice of accepting SNFs ([facility] [place], [facility], [facility]). CM awaits a return call from Dmoi.
[2022-03-02 11:27] LABS: Glucose, Whole Blood 320 mg/dL (60-115)
[2022-03-02 12:46] LABS: COVID-19 Test Negative (Negative); IDNOW Serial# 16C4AD1C
--- NOTE | 2022-03-02 13:33 | MHC.CM.PN ---
BESS received a return call from Patient's Guardian/Domi; she is just getting to her office and she believes that her Guardianship does include the right to admit to SNF clause. Domi will be faxing the Guardianship to CM office shortly. First choice remains [facility] and second choice is [facility]; Domi does not want [facility] [place]. BESS awaits a copy of the Guardianship.
--- NOTE | 2022-03-02 14:32 | HO.PM.IMPN ---
Subjective Subjective Date of Service: 03/02/22 Interval History: awake alert eating breakfast offers no acute complaints, no acute issues overnight. Review of Systems [employer] denies headache, no dizziness CVS no chest pain, no palpitation Review of Systems: Yes Unobtainable due to mental status Physical Exam Vital Signs: Vital Signs: Last Vital Signs Temp 97.5 F 03/02/22 11:45 Pulse 76 03/02/22 11:45 Resp 16 03/02/22 11:45 BP 125/58 L 03/02/22 11:45 Pulse Ox 95 03/02/22 11:45 O2 Del Method 03/02/22 11:45 O2 Flow Rate 2 02/27/22 07:05 BMI result Body Mass Index 26.6 Const: Other: General ? Awake alert, in no acute distress.? Neck no JVD. CVS? regular rate rhythm, Respiratory lungs clear to auscultation, no respiratory distress, no wheeze, no rhonchi. Gastrointestinal abdomen soft, nontender, bowel sounds audible, no guarding , no rigidity. Extremities no? edema. Neuro nonfocal, moving all 4 extremity, speech clear. Skin no rash psych poor insight Objective Data Active Medications Acetaminophen (Acetaminophen 325 Mg Tablet) 650 mg PO Q6H PRN PRN Reason: Pain, Mild (Pain Scale 1-3) Apixaban (Apixaban 5 Mg Tablet) 5 mg PO BID [facility] Last Admin: 03/02/22 09:29 Dose: 5 mg Documented By: RUBI Atorvastatin Calcium (Atorvastatin Calcium 10 Mg Tablet) 10 mg PO BEDTIME [facility] Last Admin: 03/01/22 21:16 Dose: 10 mg Documented By: PATSY Brimonidine Tartrate (Brimonidine Tartrate 0.2% Oph 5 Ml Bottle) 1 drop EYE-BOTH DAILY [facility] Last Admin: 03/02/22 08:22 Dose: 1 drop Documented By: RUBI Cefuroxime Axetil (Cefuroxime Axetil 250 Mg Tablet) 250 mg PO Q12H [facility] Last Admin: 03/02/22 09:30 Dose: 250 mg Documented By: RUBI Dextrose (Dextrose 50 % 25 Gm/50 Ml Syringe) 25 gm IVPUSH Q15M PRN; Protocol PRN Reason: per Hypoglycemia Standing Ord. Duloxetine HCl (Duloxetine Hcl 30 Mg Capsule.Dr) 30 mg PO BEDTIME [facility] Last Admin: 03/01/22 21:16 Dose: 30 mg Documented By: PATSY Glucose (Glucose Gel 15 Gm Gel..Gram.) 15 gm PO Q15M PRN; Protocol PRN Reason: per Hypoglycemia Standing Ord. Insulin Glargine (Insulin Glargine,Hum.Rec.Anlog 100 Unit/Ml 10 Ml Vial) 10 unit SUBCUT BEDTIME [facility] Insulin Human Lispro (Insulin Lispro 100 Unit/Ml 3 Ml Vial) 0 unit SUBCUT QIDACHS [facility]; Protocol Last Admin: 03/02/22 12:51 Dose: 8 unit Documented By: RUBI Insulin Human Lispro (Insulin Lispro 100 Unit/Ml 3 Ml Vial) 5 unit SUBCUT QIDAS [facility] Last Admin: 03/02/22 12:51 Dose: 5 unit Documented By: RUBI Melatonin (Melatonin 3 Mg Tablet) 3 mg PO BEDTIME PRN PRN Reason: Sleep Olanzapine (Olanzapine 10 Mg Tablet) 10 mg PO BEDTIME [facility] Last Admin: 03/01/22 21:16 Dose: 10 mg Documented By: PATSY Ondansetron HCl (Ondansetron Hcl 4 Mg/2 Ml Vial) 4 mg IVPUSH Q8H PRN PRN Reason: Nausea and Vomiting Polyethylene Glycol (Polyethylene Glycol 3350 17 Gm Powd.Pack) 17 gm PO DAILY [facility] Last Admin: 03/02/22 05:48 Dose: 17 gm Documented By: PATSY Sitagliptin Phosphate (Sitagliptin Phosphate 100 Mg Tablet) 100 mg PO DAILY [facility] Last Admin: 03/02/22 09:29 Dose: 100 mg Documented By: RUBI Sodium Chloride (0.9 % Sodium Chloride Flush 3 Ml Syringe) [facility] Admin: 03/02/22 09:29 Dose: 3 ml Documented By: RUBI Timolol Maleate (Timolol Maleate 0.5 % Oph Rina 5 Ml Drbtl) 1 drop EYE-BOTH DAILY [facility] Last Admin: 03/02/22 08:22 Dose: 1 drop Documented By: RUBI Topiramate (Topiramate 25 Mg Tablet) 25 mg PO BID [facility] Last Admin: 03/02/22 08:21 Dose: 25 mg Documented By: RUBI Trazodone HCl (Trazodone Hcl 25 Mg Halftab) 25 mg PO BEDTIME [facility] Last Admin: 03/01/22 21:16 Dose: 25 mg Documented By: PATSY Labs CBC & Chem 7: 02/27/22 06:09 03/02/22 06:46 Labs: Laboratory Results - last 24 hr 03/01/22 03/01/22 03/02/22 16:54 20:41 06:46 Anion Gap 11 L Estim Creat Clear Calc 73.2 Estimated GFR > 60 POC Glucose 232 H 268 H Random Glucose 342 H Calcium 8.2 L COVID-19 ([facility]) COVID-19 Clin Com 03/02/22 03/02/22 03/02/22 07:26 11:16 11:57 Anion Gap Estim Creat Clear Calc Estimated GFR POC Glucose 294 H 320 H Random Glucose Calcium COVID-19 ([facility]) Negative COVID-19 Clin Com See Note Assessment and Plan (1) Acute hypernatremia: Status: Acute Plan 71 year old women with hypernatremia and acute encephalopathy Hypernatramia. 165 on admission Likely from dehydration, noted to have hyperglycemia with bs of 545, corrected na of 174 initially given D5W in the ED, switched to 1/2 ns sodium gradually improved to 142 today will dc ivf , encourage by mouth fluid intake,follow bmp off fluids E coli UTI on IV ceftriaxone day /,transition to po Diabetes mellitus with hyperglycemia blood sugar in 200 range, hemoglobin A1c 11.7, cont. Januvia, receiving pre meal insulin, add lantus 10 u ,follow blood sugar and continue diabetic diet Acute metabolic encephalopathy.? Secondary to hypernatremia, E coli UTI resolved, seems to be at baseline with history of vascular dementia SHERYL. Resolved secondary to hypovolemia encourage by mouth intake hx DVT on eliquis hyperlipidemia continue Lipitor Vascular Dementia. Continue home medications/ seen by physical therapy they recommend short-term rehab Full code DVT prophylaxis with Eliquis Patient requires continued hospitalization since require close monitoring electrolytes and need safe disposition to rehab cm arranging for bed. Quality Stroke Does the patient have a stroke diagnosis?: No VTE Prior VTE?: No VTE Risk Level:: Medical - moderate - high VTE Device Contraindication: Treatment Not Indicated VTE Drug Contraindication: N/A - Med Ordered
--- NOTE | 2022-03-02 15:29 | MHC.CM.PN ---
Patient is expected to be medically cleared for dc to STR/SNF tomorrow, per MD. Patient has been accepted at her first choice SNF-[facility] and she will dc there tomorrow at 2PM, via [facility]. BESS has addressed IMM with Patient's Guardian/Bonny @ [phone] and original was faxed to her at her request to [phone] and a copy has been placed on the chart.
[2022-03-02 17:02] LABS: Glucose, Whole Blood 145 mg/dL (60-115)
[2022-03-02 20:48] LABS: Glucose, Whole Blood 175 mg/dL (60-115)
[2022-03-02] MEDS: OLANZapine 10 MG TABLET PO (21:36)
[2022-03-02] MEDS: traZODone HCL 25 MG HALFTAB PO (21:36)
[2022-03-02] MEDS: Atorvastatin Calcium 10 MG TABLET PO (21:36)
[2022-03-02] MEDS: DULoxetine HCl 30 MG CAPSULE.DR PO (21:36)
[2022-03-02] MEDS: Insulin Glargine,Hum.rec.anlog 100 UNIT/ML 10 ML VIAL 10 UNIT SUBCUT (21:37)
[2022-03-03] VITALS: BP 127/67; PULSE 82; RESP 15; TEMP 36.8; O2SAT 93
[2022-03-03 04:00] VITALS: BP 123/53; PULSE 70; RESP 15; TEMP 36.8; O2SAT 92
[2022-03-03] MEDS: Sodium Phosphate,Mono-Dibasic 133 ML ENEMA PR (05:56)
[2022-03-03 07:31] VITALS: BP 141/60; PULSE 63; RESP 16; TEMP 36.2; O2SAT 93
[2022-03-03 07:43] LABS: Anion Gap 12 (12-20); Blood Urea Nitrogen 17 mg/dL (9-16); Calcium 8.1 mg/dL (8.4-10.2); Carbon Dioxide 22 mmol/L (22-29); Chloride 113 mmol/L (96-108); Creatinine Clr Calc Pharmacy 76.2; Estimated Glomerular Filt Rate > 60; Glucose Random 268 mg/dL (60-115); Potassium 3.8 mmol/L (3.3-5.1); Sodium 143 mmol/L (135-145)
[2022-03-03 08:01] LABS: Glucose, Whole Blood 232 mg/dL (60-115)
--- NOTE | 2022-03-03 09:07 | MHC.CM.PN ---
Addendum entered by Katrin Lopez 03/03/22 12:00: MESSAGE LEFT FOR PTS GUARDIAN, ISMAEL [phone] CONFIRMING PTS DC FOR TODAY Original Note: PT WILL DC TO [facility] TODAY AT 1400 HOURS [facility]IA [facility]. GUARDIAN INFORMED ON 03/02/22 AND FOLLOW IMM DELIVERED
[2022-03-03] MEDS: Brimonidine Tartrate 0.2% Oph 5 ML BOTTLE 1 DROP EYE-BOTH (10:02)
[2022-03-03] MEDS: timoloL maleate 0.5 % Oph Sol 5 ML DRBTL 1 DROP EYE-BOTH (10:02)
[2022-03-03] MEDS: SITagliptin Phosphate 100 MG TABLET PO (10:02)
[2022-03-03] MEDS: Insulin Lispro 100 UNIT/ML 3 ML VIAL SUBCUT ×4 (10:03→13:40)
[2022-03-03] MEDS: Apixaban 5 MG TABLET PO (10:03)
[2022-03-03] MEDS: Topiramate 25 MG TABLET PO (10:03)
[2022-03-03] MEDS: polyethylene glycoL 3350 17 GM POWD.PACK PO (10:03)
[2022-03-03] MEDS: 0.9 % Sodium Chloride Flush 3 ML SYRINGE IVFLUSH (10:04)
[2022-03-03 11:43] LABS: Glucose, Whole Blood 274 mg/dL (60-115)
--- NOTE | 2022-03-03 12:34 | P.PNNP_ITS ---
Subjective Subjective Date of Service: 03/03/22 Interval history: awake alert eating breakfast offers no acute complaints, no acute issues overnight. Physical Exam Vital Signs: Vital Signs: Last Vital Signs Temp 97.1 F 03/03/22 07:31 Pulse 63 03/03/22 07:31 Resp 16 03/03/22 07:31 BP 141/60 H 03/03/22 07:31 Pulse Ox 93 03/03/22 07:31 O2 Del Method 03/03/22 07:31 O2 Flow Rate 2 02/27/22 07:05 BMI result Body Mass Index 26.6 Const: General: no acute distress Neck: Neck: Yes normal visual inspection Resp: Effort & Inspection: normal respiratory effort and no respiratory distr ess Auscultation: clear to auscultation bilaterally Cardio: Rate: regular rate Heart sounds: S1 normal heart sound present and S2 normal heart sound present GI: Inspection: Yes normal to inspection Palpation (GI): Soft to palpation, nontender and no guarding Skin: Rashes: no rashes Wounds: no wounds Neuro: Other: Answering questions, repeating words General: tone normal and moves all extremities Extrem: General: Yes normal to inspection and Yes no pedal edema Objective Data Labs CBC & Chem 7: 02/27/22 06:09 03/03/22 06:45 Labs: Laboratory Results - last 24 hr 03/02/22 03/02/22 03/02/22 11:57 16:33 20:42 Sodium Potassium Chloride Carbon Dioxide Anion Gap BUN Creatinine Estim Creat Clear Calc Estimated GFR POC Glucose 145 H 175 H Random Glucose Calcium COVID-19 ([facility]) Negative COVID-19 Clin Com See Note 03/03/22 03/03/22 03/03/22 06:45 07:37 11:31 Sodium 143 Potassium 3.8 Chloride 113 H Carbon Dioxide 22 Anion Gap 12 BUN 17 H Creatinine 0.75 Estim Creat Clear Calc 76.2 Estimated GFR > 60 POC Glucose 232 H 274 H Random Glucose 268 H Calcium 8.1 L COVID-19 ([facility]) COVID-19 Clin Com Microbiology Microbiology Results: Microbiology 02/26/22 12:22 Blood - Venous Blood Culture - Preliminary No growth after 48 hours. 02/26/22 12:29 Blood - Venous Blood Culture - Preliminary No growth after 48 hours. 02/26/22 14:10 Urine Catheterized - Orellana Catheter Urine Culture - Final Escherichia coli Procedures Date of Service Date of Service: 03/03/22 Assessment & Plan Assessment and plan (1) Acute hypernatremia: Status: Acute Plan 71 year old women with hypernatremia and encephalopathy Hypernatramia. Na is gradually correcting RAte of correction acceptable Encourage PO water intake Check pNa as needed metabolic encephalopathy.? Secondary to hypernatremia Improving SHERYL. secondary to hypovolemia Improving with fluids continue PO fluids diabetes mellitus Watch for glycosuria and optimize blood sugar Time Spent With Patient Time: Total time spent is greater than 50% in coordination of care (as documented) at patient's floor/unit and/or counseling patient: Progress Note: Quality Stroke Does the patient have a stroke diagnosis?: No
--- NOTE | 2022-03-03 13:37 | PM.DS ---
DS: Providers Provider Date of Service: 03/03/22 Date of admission: 02/26/22 14:25 Primary care physician: Ale Cortés DO Consults: 02/26/22 14:25 Consult to Nephrology Routine Consulting Provider: Morris Oh Reason for consultation: hypernatremia Has provider been notified: No DS: Diagnosis Discharge Diagnosis (1) Acute hypernatremia: Status: Acute DS: Summary Hospital Course Hospital Course: history of presenting illness Date of Service: 02/26/22 Chief Complaint: weakness 71-year-old women presenting from [facility] with altered mental status with past medical history of CAD, diabetes, DVT, vascular dementia. According to the record she had increased shakiness and was unable to walk or hold a conversation. ? During the entry patient was alert and oriented to person only therefore unable to participate in interview however she denied having any pain anywhere.? According to the record parent she also had a fall about 2 weeks ago and the facility may feel at this time that she does have a urinary tract infection. ? In the ER, her sodium is noted to be quite elevated at 165, creatinine 1.49, glucose 545 magnesium 2.7, urinalysis with positive nitrates and 15-29 wbc's.? She was started on D5W at 125 an hour and repeat sodium was 166.? She also received insulin and a dose of cefepime.? Her vital signs have been stable.? She will be admitted for further management and treatment of acute hypernatremia. hospital course 71 year old women admitted from from [facility] with altered mental status and diagnosed to have with hypernatremia and acute encephalopathy Hypernatramia, likely from dehydration sodium 165 on admission noted to have hyperglycemia with bs of 545, corrected na of 174,given D5W in the ED, subsequent switched to 1/2 ns sodium gradually improved to 142 , IV fluid discontinued, patient is tolerating fluids encourage fluid intake. E coli UTI on IV ceftriaxone day 4/5,transition to po Acute metabolic encephalopathy, likely secondary to hypernatremia, and E coli UTI patient treated with IV ceftriaxone has finished 5 day course of antibiotic hypernatremia resolved patient seems to be at baseline, pleasantly confused with history of vascular dementia. SHERYL.? Resolved, secondary to hypovolemia,encourage by mouth intake. Diabetes mellitus with hyperglycemia blood sugar in 200 range, hemoglobin A1c 11.7, cont. Januvia, added lantus 15 u adjust dosage as per blood sugars reading ,follow blood sugar, continue insulin sliding scale and continue diabetic diet hx DVT Continue eliquis hyperlipidemia continue statins Time Spent with Patient Time attestation: Total time spent providing and/or coordinating discharge services: Discharge coordination time: Greater than 30 minutes Quality: Safe Use of Opioids Does Pt have an Active Cancer Diagnosis on the Problem List?: No Quality: Stroke Does the patient have a stroke diagnosis?: No Physical Exam Vital Signs: Vital Signs: Last Vital Signs Temp 97.1 F 03/03/22 07:31 Pulse 63 03/03/22 07:31 Resp 16 03/03/22 07:31 BP 141/60 H 03/03/22 07:31 Pulse Ox 93 03/03/22 07:31 O2 Del Method 03/03/22 07:31 O2 Flow Rate 2 02/27/22 07:05 BMI result Body Mass Index 26.6 Const: Other: General ? Awake alert, in no acute distress.? Neck no JVD. CVS? regular rate rhythm, Respiratory lungs clear to auscultation, no respiratory distress, no wheeze, no rhonchi. Gastrointestinal abdomen soft, nontender, bowel sounds audible, no guarding , no rigidity. Extremities no? edema. Neuro nonfocal, moving all 4 extremity, speech clear. Skin no rash psych poor insight DS: Data Data Completed and Pending Labs on day of discharge: Laboratory Results - last 24 hr 03/02/22 03/02/22 03/03/22 16:33 20:42 06:45 Sodium 143 Potassium 3.8 Chloride 113 H Carbon Dioxide 22 Anion Gap 12 BUN 17 H Creatinine 0.75 Estim Creat Clear Calc 76.2 Estimated GFR > 60 POC Glucose 145 H 175 H Random Glucose 268 H Calcium 8.1 L 03/03/22 03/03/22 07:37 11:31 Sodium Potassium Chloride Carbon Dioxide Anion Gap BUN Creatinine Estim Creat Clear Calc Estimated GFR POC Glucose 232 H 274 H Random Glucose Calcium Preliminary micro results at discharge 02/26/22 12:22 Blood Culture - Preliminary Blood - Venous No growth after 48 hours. 02/26/22 12:29 Blood Culture - Preliminary Blood - Venous No growth after 48 hours. Discharge Plan Discharge Patient Disposition: Xfer SNF Discharge Diagnosis: hypernatremia acute kidney injury E coli UTI diabetes mellitus with hyperglycemia vascular dementia [facility]errals: [facility] [Outside] - 1 Week Ale Cortés DO [Primary Care Provider] - 1 Week Discharge Medications: New insulin lispro [Humalog U-100 Insulin] 100 unit/mL Solution See Protocol subcut QIDACHS Qty: 10 0RF Protocol: Insulin Correction Scale Less than or equal to 110 ---- Give (units): 0 111 to 150 Give (units): 0 151 to 200 Give (units): 2 201 to 250 Give (units): 4 251 to 300 Give (units): 6 301 to 350 Give (units): 8 Greater than 350 Give (units): 10 Call MD if Blood Glucose > : 350 Januvia 100 mg Tablet 100 mg PO DAILY Qty: 30 0RF insulin glargine [Lantus U-100 Insulin] 100 unit/mL Solution 15 unit subcut BEDTIME Qty: 10 0RF Continued apixaban 5 mg Tablet 5 mg PO BID topiramate 25 mg Tablet 25 mg PO BID duloxetine 30 mg Capsule,Delayed Release(Dr/Ec) 30 mg PO BEDTIME olanzapine 10 mg Tablet 10 mg PO BEDTIME simvastatin 10 mg Tablet 10 mg PO BEDTIME trazodone 50 mg Tablet 25 mg BEDTIME brimonidine 0.2 % Drops 1 drp ophthalmic (eye) DAILY timolol maleate 0.5 % Drops 1 drp OPHTHALMIC (EYE) DAILY melatonin 3 mg Tablet 3 mg PO BEDTIME PRN (Reason: Sleep) acetaminophen 325 mg Tablet 650 mg PO Q6H MDD PAIN/HEADACHE PRN (Reason: Dehydration) Discontinued Januvia 50 mg Tablet 50 mg PO DAILY Discharge Orders: Discharge Order (Routine); Ordered 03/03/22 Ordered By: Shawna Tinajero Diet: diabetic diet Activity on Discharge: As tolerated Stand Alone Forms: Patient Portal Discharge page Care Plan Goals: hypernatremia resolved push by mouth fluids, avoid dehydration,continue diabetic diet, finished course of antibiotics for UTI Health Concerns: diabetes mellitus/ at risk for recurrent hypernatremia and dehydration, push oral fluids, monitor blood sugars Plan of Treatment: outpatient follow-up with primary care physician Assessment: as per discharge summary
== END 2022-03-03 14:46 | disposition skilled nursing facility (03) | DRG 682 ==
LOC: HO.ED 12:23 → HO.EDOVER 14:29 → HO.IMC 02-27 14:14
PROVIDERS: Family Medicine; Physician Assistant; Admitting Provider Nurse Practitioner Acute Care; Emergency Provider Emergency Medicine; PCP Internal Medicine; Visit Provider Hospitalist
DX: N17.9 Acute kidney failure, unspecified (principal); G93.41 Metabolic encephalopathy; E87.0 Hyperosmolality and hypernatremia; N39.0 Urinary tract infection, site not specified; E11.40 Type 2 diabetes mellitus with diabetic neuropathy, unspecified; F01.50 Vascular dementia, unspecified severity, without behavioral disturbance, psychotic disturbance, mood disturbance, and anxiety; E11.65 Type 2 diabetes mellitus with hyperglycemia; E86.0 Dehydration; E86.1 Hypovolemia; L89.312 Pressure ulcer of right buttock, stage 2; B96.20 Unspecified Escherichia coli [E. coli] as the cause of diseases classified elsewhere; I25.10 Atherosclerotic heart disease of native coronary artery without angina pectoris; Z20.822 Contact with and (suspected) exposure to COVID-19; Z86.711 Personal history of pulmonary embolism; Z87.891 Personal history of nicotine dependence; Z88.0 Allergy status to penicillin; Z79.4 Long term (current) use of insulin; Z79.899 Other long term (current) drug therapy
CPT/HCPCS: 36415; 70450; 71045; 80048; 80076; 81001; 82009; 82140; 82947; 83036; 83605; 83735; 84295; 84484; 85025; 87040; 87086; 87088; 87186; 87502; 87635; 93005; 96361; 96374; 97162; 97530; 99285; C1758; J0692; J0696

== ENCOUNTER 2022-03-21 05:00 | Outpatient (REF) | payer MEDICARE, MEDICAID, SELFPAY | END 2022-03-21 05:01 | disposition home or self-care (01) | LOC: HO.MMNH1L 05:00 | PROVIDERS: Visit Provider Family Medicine | DX: Z13.89 Encounter for screening for other disorder (principal) ==

== ENCOUNTER 2022-04-05 11:24 | Emergency (ER) | payer MEDICARE, MEDICAID, SELFPAY ==
--- NOTE | ~2022-04-05 | CT_ITS ---
EXAMINATION: CT HEAD WITHOUT CONTRAST CLINICAL INFORMATION: Confusion COMPARISON: 02/26/2022 TECHNIQUE: Contiguous axial imaging was performed from the skull base to vertex without intravenous administration of contrast. This CT examination was performed using dose optimization techniques as appropriate, variously including the following: *Automated exposure control *Adjustment of mA and/or kV according to patient size (this includes techniques or standardized protocols for targeted exams where dose is matched to indication/reason for exam; i.e. extremities or head) *Use of iterative reconstruction technique DLP: 575 mGy-cm FINDINGS: These images are degraded by patient motion. No acute intracranial hemorrhage. No extra-axial fluid collection. Rivera-white differentiation is maintained without evidence of acute large vessel territory ischemia. Similar appearance of mild chronic periventricular and subcortical white matter changes. Ventricles and sulci are similar in configuration to the prior study. The osseous structures and soft tissues are normal. The mastoid air cells and visualized portions of the paranasal sinuses are well aerated. CT/CT head/brain wo con IMPRESSION: No acute intracranial pathology. No significant change from prior study. Consider MRI for further evaluation as clinically indicated.
--- NOTE | ~2022-04-05 | XR_ITS ---
EXAMINATION: XR CHEST CLINICAL INFORMATION: Weakness COMPARISON: Chest radiographs 02/26/2022 TECHNIQUE: Frontal view of the chest was obtained. FINDINGS: No significant abnormality is noted involving the heart, lungs, mediastinum, bony thorax or soft tissues. XR/XR chest 1V IMPRESSION: Unremarkable examination.
[2022-04-05 12:00] VITALS: BP 100/58; BP 119/60; PULSE 58; PULSE 64; RESP 16; TEMP 36.1; O2SAT 95; O2SAT 97; BMI 22.4
--- NOTE | 2022-04-05 12:06 | ECG_ITS ---
Test Reason : WEAKNESS Blood Pressure : / mmHG Vent. Rate : 058 BPM Atrial Rate : 058 BPM P-R Int : 166 ms QRS Dur : 084 ms QT Int : 430 ms P-R-T Axes : 065 045 039 degrees QTc Int : 422 ms Sinus bradycardia Otherwise normal ECG When compared with ECG of 26-FEB-2022 09:44, ST no longer depressed in Anterior leads Referred By: Katey Raymond Electronically Signed By:Deion Macedo
--- NOTE | 2022-04-05 12:29 | ED.GENADULT ---
HPI - General Adult General Chief complaint: General Medical Stated complaint: weakness Time Seen by Provider: 04/05/22 12:05 Source: patient Mode of arrival: ambulatory Limitations: altered mental status History of Present Illness HPI narrative: 72 yo female with hx of DVT/PE on eliquis, dementia, HLD from assisted living facility was reportedly slower to wake up this AM. Patient is at baseline now has no complaints. She thinks it is 1992. complaint: slower to wake up this AM Onset (ago): day(s) (this morning) Severity: mild Relieving factors: none Exacerbating factors: none Associated symptoms: denies other symptoms Treatments prior to arrival: none Related Data Home Medications Medication Instructions Recorded Confirmed acetaminophen 325 mg tablet 650 mg PO Q6H PRN Dehydration 02/26/22 04/05/22 apixaban 5 mg tablet 5 mg PO BID 02/26/22 04/05/22 brimonidine 0.2 % eye drops 1 drp ophthalmic (eye) DAILY 02/26/22 04/05/22 duloxetine 30 mg capsule,delayed 30 mg PO BEDTIME 02/26/22 04/05/22 release olanzapine 10 mg tablet 10 mg PO BEDTIME 02/26/22 04/05/22 simvastatin 10 mg tablet 10 mg PO BEDTIME 02/26/22 04/05/22 timolol maleate 0.5 % eye drops 1 drp ophthalmic (eye) DAILY 02/26/22 04/05/22 topiramate 25 mg tablet 25 mg PO BID 02/26/22 04/05/22 trazodone 50 mg tablet 25 mg BEDTIME 02/26/22 04/05/22 insulin glargine 100 unit/mL 17 unit subcut BEDTIME 04/05/22 04/05/22 subcutaneous solution (Lantus U-100 Insulin) melatonin 5 mg tablet 5 mg PO BEDTIME PRN Insomnia 04/05/22 04/05/22 Previous Rx's Medication Instructions Recorded insulin lispro 100 unit/mL See Protocol subcut QIDACHS #10 mL 03/03/22 subcutaneous solution (Humalog U-100 Insulin) sitagliptin 100 mg tablet (Januvia) 100 mg PO DAILY #30 tabs 03/03/22 cefuroxime axetil 250 mg tablet 250 mg PO BID 10 days #20 tabs 04/05/22 Allergies Allergy/AdvReac Type Severity Reaction Status Date / Time Penicillins Allergy Hives Verified 04/17/21 16:26 Review of Systems Review of Systems: ROS unable to be obtained due to altered mental status [facility] Past Medical History Medical History Coronary artery disease DVT (deep venous thrombosis) Glaucoma Neuropathy Non-insulin dependent diabetes mellitus Pulmonary embolism Vascular dementia Social History Social History Household Members: Other Household Members Other:: Rest Home Housing: Long-Term Do you presently have visiting nurse or other home services: Yes Unable to assess alcohol history related to: Unable to respond Alcohol intake: former Patient Tobacco Use Status: Former Tobacco user Advance Directives: No Advance Directives Information Provided: Yes service: No Physical Exam ED Vital Signs: Vital Signs - 24 hr 04/05/22 12:00 Temperature 97 F Pulse Rate 58 Respiratory Rate 16 Blood Pressure 119/60 Pulse Oximetry 97 Oxygen Delivery Method Room Air BMI result Body Mass Index 22.4 Appearance: Alert. Oriented to self. No acute distress. Eyes: Pupils equal, round and reactive to light. ENT: Pharynx normal. Neck: Normal inspection. Neck supple. CVS: Normal heart rate and rhythm. Pulses normal. Respiratory: No respiratory distress. Breath sounds normal. Abdomen: Soft and nontender. Skin: Skin warm and dry. Normal skin color. Normal skin turgor. Extremities: No lower extremity edema. No calf ttp Neuro: Oriented to self No motor deficit. No sensory deficit. Course Course Course Narrative: has UTI but at baseline otherwise afebrile no WBC count not vomiting will dose with rocephin and start on ceftin Medical Decision Making [facility] Narrative Medical decision making narrative: 72 yo female with hx of DVT/PE on eliquis, dementia, HLD from assisted living facility reportedly slower to wake up - at this time will obtain basic labs, UA, CXR - look for infection, CT head given DOAC to r/o ICH. Dispo per results and findings. Lab Data Result diagrams: 04/05/22 12:47 04/05/22 12:47 Labs: Lab Results 04/05/22 04/05/22 04/05/22 Range/Units 12:47 12:47 12:47 WBC 5.9 (4.8-10.8) X10*3/uL RBC 4.01 L (4.20-5.50) X10*6/uL Hgb 11.9 L (12.0-16.0) g/dl Hct 36.9 L (37.0-47.0) % MCV 92.0 (80.0-98.0) fL MCH 29.7 (27.0-33.0) pg MCHC 32.2 (31.0-35.0) g/dl RDW 13.0 (11.0-16.0) % Plt Count 221 (160-400) X10*3/uL MPV 9.5 (9.4-12.3) fL Immature Gran % (Auto) 0.3 (0.0-0.4) % Neut % (Auto) 55.5 (45-73) % Lymph % (Auto) 33.4 (20-40) % [place] % (Auto) 9.6 (2-11) % Eos % (Auto) 1.0 (0-4) % Baso % (Auto) 0.2 (0-2) % Lymph # (Auto) 2.0 (1.2-4.9) X10*3/uL [place] # (Auto) 0.6 (0.1-1.2) X10*3/uL Eos # (Auto) 0.1 (0.0-0.4) X10*3/uL Baso # (Auto) 0.0 (0.0-0.2) X10*3/uL Abs Immat Gran (auto) 0.02 (0.00-0.03) X10*3/uL Absolute Neuts (auto) 3.3 (2.0-8.3) x10*3/uL Absolute Nucleated RBC 0.000 (0.0-0.012) X10*3/uL Nucleated RBC % (auto) 0.0 (0.0-0.2) /100WBC PT (10.0-13.1) SEC INR (0.9-1.1) Sodium 142 (135-145) mmol/L Potassium 4.0 (3.3-5.1) mmol/L Chloride 111 H (96-108) mmol/L Carbon Dioxide 26 (22-29) mmol/L Anion Gap 9 L (12-20) BUN 19 H (9-16) mg/dL Creatinine 0.79 (0.5-1.4) mg/dL Estim Creat Clear Calc 64.9 Estimated GFR > 60 Random Glucose 150 H (60-115) mg/dL Calcium 9.1 D (8.4-10.2) mg/dL Magnesium 2.0 (1.6-2.6) mg/dL Total Bilirubin 0.3 (0.0-1.0) mg/dL Direct Bilirubin 0.2 (0.0-0.5) mg/dL AST 14 D (5-31) U/L ALT 12 (0-31) U/L Alkaline Phosphatase 71 D (39-117) U/L Troponin I High Sens (<3.5-17.0) ng/L Total Protein 7.4 (6.5-8.0) g/dL Albumin 3.8 (3.5-5.0) g/dL Urine Color Urine Appearance Urine pH (5.0-8.0) Ur Specific [place] (1.005-1.025) Urine Protein (NEG-TRACE) MG/DL Urine Glucose (UA) (NEG) MG/DL Urine Ketones (NEG) MG/DL Urine Blood (NEG) Urine Nitrite (NEG) Ur Leukocyte Esterase (NEG) Urine RBC (0) /HPF Urine WBC (0-4) /HPF Urine WBC Clumps Ur Squamous Epith Cells /LPF Urine Bacteria /LPF COVID-19 (GONZALEZ) Negative (Negative) COVID-19 Clin Com See Note 04/05/22 04/05/22 04/05/22 Range/Units 12:47 12:47 14:18 WBC (4.8-10.8) X10*3/uL RBC (4.20-5.50) X10*6/uL Hgb (12.0-16.0) g/dl Hct (37.0-47.0) % MCV (80.0-98.0) fL MCH (27.0-33.0) pg MCHC (31.0-35.0) g/dl RDW (11.0-16.0) % Plt Count (160-400) X10*3/uL MPV (9.4-12.3) fL Immature Gran % (Auto) (0.0-0.4) % Neut % (Auto) (45-73) % Lymph % (Auto) (20-40) % [place] % (Auto) (2-11) % Eos % (Auto) (0-4) % Baso % (Auto) (0-2) % Lymph # (Auto) (1.2-4.9) X10*3/uL [place] # (Auto) (0.1-1.2) X10*3/uL Eos # (Auto) (0.0-0.4) X10*3/uL Baso # (Auto) (0.0-0.2) X10*3/uL Abs Immat Gran (auto) (0.00-0.03) X10*3/uL Absolute Neuts (auto) (2.0-8.3) x10*3/uL Absolute Nucleated RBC (0.0-0.012) X10*3/uL Nucleated RBC % (auto) (0.0-0.2) /100WBC PT 15.3 H (10.0-13.1) SEC INR 1.3 H (0.9-1.1) Sodium (135-145) mmol/L Potassium (3.3-5.1) mmol/L Chloride (96-108) mmol/L Carbon Dioxide (22-29) mmol/L Anion Gap (12-20) BUN (9-16) mg/dL Creatinine (0.5-1.4) mg/dL Estim Creat Clear Calc Estimated GFR Random Glucose (60-115) mg/dL Calcium (8.4-10.2) mg/dL Magnesium (1.6-2.6) mg/dL Total Bilirubin (0.0-1.0) mg/dL Direct Bilirubin (0.0-0.5) mg/dL AST (5-31) U/L ALT (0-31) U/L Alkaline Phosphatase (39-117) U/L Troponin I High Sens < 3.5 (<3.5-17.0) ng/L Total Protein (6.5-8.0) g/dL Albumin (3.5-5.0) g/dL Urine Color YELLOW Urine Appearance HAZY Urine pH 7.0 (5.0-8.0) Ur Specific [place] 1.010 (1.005-1.025) Urine Protein NEG (NEG-TRACE) MG/DL Urine Glucose (UA) NEG (NEG) MG/DL Urine Ketones NEG (NEG) MG/DL Urine Blood TRACE (NEG) Urine Nitrite NEG (NEG) Ur Leukocyte Esterase 3+ H (NEG) Urine RBC 0 (0) /HPF Urine WBC TNTC H (0-4) /HPF Urine WBC Clumps NOTED Ur Squamous Epith Cells 1+ /LPF Urine Bacteria 4+ /LPF COVID-19 (GONZALEZ) (Negative) COVID-19 Clin Com ECG Data Attestation: I personally reviewed and interpreted this ECG as follows: Interpretation: Rate: 58 Rhythm: sinus bradycardia [place]: normal Normal P waves. Normal CARLOS. Normal QRS complex. ST T wave : normal no ALLEGRA qTC: normal prior studies: no acute ischemia The study has been interpreted contemporaneously by me. . Discharge Plan Discharge Clinical Impression: Acute UTI Patient Disposition: Home, Self-Care Instructions: Urinary Tract Infection in Women (ED) Additional Instructions: return to ED for any worsening symptoms or concerns negative CXR, CT head, labs within normal limits give dose of IV ceftriaxone in ED please follow up with her doctor in next 3 to 5 days Prescriptions: New cefuroxime axetil 250 mg tablet 250 mg PO BID 10 Days Qty: 20 0RF No Action apixaban 5 mg Tablet 5 mg PO BID topiramate 25 mg Tablet 25 mg PO BID duloxetine 30 mg Capsule,Delayed Release(Dr/Ec) 30 mg PO BEDTIME olanzapine 10 mg Tablet 10 mg PO BEDTIME simvastatin 10 mg Tablet 10 mg PO BEDTIME trazodone 50 mg Tablet 25 mg BEDTIME brimonidine 0.2 % Drops 1 drp ophthalmic (eye) DAILY timolol maleate 0.5 % Drops 1 drp OPHTHALMIC (EYE) DAILY acetaminophen 325 mg Tablet 650 mg PO Q6H MDD PAIN/HEADACHE PRN (Reason: Dehydration) Januvia 100 mg Tablet 100 mg PO DAILY Qty: 30 0RF insulin lispro [Humalog U-100 Insulin] 100 unit/mL Solution See Protocol subcut QIDACHS Qty: 10 0RF Protocol: Insulin Correction Scale Less than or equal to 110 ---- Give (units): 0 111 to 150 Give (units): 0 151 to 200 Give (units): 2 201 to 250 Give (units): 4 251 to 300 Give (units): 6 301 to 350 Give (units): 8 Greater than 350 Give (units): 10 Call MD if Blood Glucose > : 350 melatonin 5 mg Tablet 5 mg PO BEDTIME PRN (Reason: Insomnia) insulin glargine [Lantus U-100 Insulin] 100 unit/mL solution 17 unit subcut BEDTIME
[2022-04-05 12:51] LABS: MANUAL DIFF FLAG NO
[2022-04-05 12:53] LABS: Basophils Percent Auto 0.2 % (0-2); Eosinophils Absolute Auto 0.1 X10*3/uL (0.0-0.4); Hematocrit 36.9 % (37.0-47.0); Hemoglobin 11.9 g/dl (12.0-16.0); Imm Gran Abs Auto 0.02 X10*3/uL (0.00-0.03); Imm Gran Pct Auto 0.3 % (0.0-0.4); Lymphocytes Percent Auto 33.4 % (20-40); Mean Corpuscular HGB Conc 32.2 g/dl (31.0-35.0); Mean Corpuscular Hemoglobin 29.7 pg (27.0-33.0); Mean Platelet Volume 9.5 fL (9.4-12.3); Monocytes Absolute Auto 0.6 X10*3/uL (0.1-1.2); Monocytes Percent Auto 9.6 % (2-11); Neutrophils Absolute Auto 3.3 x10*3/uL (2.0-8.3); Neutrophils Percent Auto 55.5 % (45-73); Platelet Count 221 X10*3/uL (160-400); Red Blood Count 4.01 X10*6/uL (4.20-5.50); White Blood Count 5.9 X10*3/uL (4.8-10.8)
[2022-04-05 13:02] LABS: INTERNATIONAL NORM RATIO 1.3 (0.9-1.1); Prothrombin Time 15.3 SEC (10.0-13.1)
--- NOTE | 2022-04-05 13:02 | PHA.MEDREC ---
Pharmacy Consult ? Medication Reconciliation Pharmacy has completed the medication reconciliation.
[2022-04-05 13:19] LABS: Troponin-I High Sensitivity < 3.5 ng/L (<3.5-17.0)
[2022-04-05 13:20] LABS: Alanine Aminotransferase 12 U/L (0-31); Albumin Level 3.8 g/dL (3.5-5.0); Alkaline Phosphatase 71 U/L (39-117); Anion Gap 9 (12-20); Aspartate Amino Transferase 14 U/L (5-31); Bilirubin Direct 0.2 mg/dL (0.0-0.5); Bilirubin Total 0.3 mg/dL (0.0-1.0); Blood Urea Nitrogen 19 mg/dL (9-16); COVID-19 Test Negative (Negative); Calcium 9.1 mg/dL (8.4-10.2); Carbon Dioxide 26 mmol/L (22-29); Chloride 111 mmol/L (96-108); Creatinine Clr Calc Pharmacy 64.9; Estimated Glomerular Filt Rate > 60; Glucose Random 150 mg/dL (60-115); IDNOW Serial# 16C4AD1C; Sodium 142 mmol/L (135-145); Total Protein 7.4 g/dL (6.5-8.0)
--- NOTE | 2022-04-05 13:40 | P.HPHOSP_ITS ---
History of Present Illness 71-year-old women presenting from [facility] with altered mental status with past medical history of CAD, diabetes, DVT, vascular dementia. According to the record she had increased shakiness and was unable to walk or hold a conversation. ? During the entry patient was alert and oriented to person only therefore unable to participate in interview however she denied having any pain anywhere.? According to the record parent she also had a fall about 2 weeks ago and the facility may feel at this time that she does have a urinary tract infection. ? In the ER, her sodium is noted to be quite elevated at 165, creatinine 1.49, glucose 545 magnesium 2.7, urinalysis with positive nitrates and 15-29 wbc's.? She was started on D5W at 125 an hour and repeat sodium was 166.? She also received insulin and a dose of cefepime.? Her vital signs have been stable.? She will be admitted for further management and treatment of acute hypernatremia. Review of Systems Review of Systems: Gen: no fever Resp: no sob, no cough CV: no chest, no MANZANO, no leg edema GI: No n/v, no abd pain Neuro: No confusion [facility] Medical History Coronary artery disease DVT (deep venous thrombosis) Glaucoma Neuropathy Non-insulin dependent diabetes mellitus Pulmonary embolism Vascular dementia Social History Household Members: Other Household Members Other:: Rest Home Housing: Prison Do you presently have visiting nurse or other home services: Yes Unable to assess alcohol history related to: Unable to respond Alcohol intake: former Patient Tobacco Use Status: Former Tobacco user Advance Directives: No Advance Directives Information Provided: Yes service: No Meds Allergies Allergy/AdvReac Type Severity Reaction Status Date / Time Penicillins Allergy Hives Verified 04/17/21 16:26 Home Medications Medication Instructions Recorded Confirmed Last Taken Type acetaminophen 325 mg tablet 650 mg PO Q6H PRN Dehydration 02/26/22 04/05/22 Unknown History apixaban 5 mg tablet 5 mg PO BID 02/26/22 04/05/22 04/05/22 History brimonidine 0.2 % eye drops 1 drp ophthalmic (eye) DAILY 02/26/22 04/05/22 04/05/22 History duloxetine 30 mg capsule,delayed 30 mg PO BEDTIME 02/26/22 04/05/22 04/04/22 History release olanzapine 10 mg tablet 10 mg PO BEDTIME 02/26/22 04/05/22 04/04/22 History simvastatin 10 mg tablet 10 mg PO BEDTIME 02/26/22 04/05/22 04/04/22 History timolol maleate 0.5 % eye drops 1 drp ophthalmic (eye) DAILY 02/26/22 04/05/22 04/05/22 History topiramate 25 mg tablet 25 mg PO BID 02/26/22 04/05/22 04/05/22 History trazodone 50 mg tablet 25 mg BEDTIME 02/26/22 04/05/22 04/04/22 History insulin glargine 100 unit/mL 17 unit subcut BEDTIME 04/05/22 04/05/22 04/04/22 History subcutaneous solution (Lantus U-100 Insulin) melatonin 5 mg tablet 5 mg PO BEDTIME PRN Insomnia 04/05/22 04/05/22 Unknown H istory Physical Exam Vital Signs and Narrative: Vital Signs: Last Vital Signs Temp 97 F 04/05/22 12:00 Pulse 58 04/05/22 12:00 Resp 16 04/05/22 12:00 BP 119/60 04/05/22 12:00 Pulse Ox 97 04/05/22 12:00 O2 Del Method 04/05/22 12:00 BMI result Body Mass Index 22.4 Const: Other: Constitutional: Alert, in no distress, overweight. Mental Status: Oriented to person, place and time. Eyes: Pupils are equal, round and reactive to light. Ear, Nose and Throat: Oropharynx clear, mucous membranes moist. Ears and nose without eformities. Trachea midline. Respiratory: Clear to auscultation. No wheezing, rales or rhonchi. Cardiovascular: S1 S2 regular. No murmurs, rubs or gallops. Gastrointestinal: Abdomen soft, non-tender, non-distended. Normal bowel sounds.? Neurologic: Cranial nerves II-XII grossly intact. No focal neurological defic its. Moves all extremities spontaneously.? Skin: No rashes or lesions.? Musculoskeletal: No cyanosis or clubbing. Psychiatric: Normal mood and affect? Results Labs CBC and Chem 7: 04/05/22 12:47 04/05/22 12:47 Labs: Laboratory Results - last 24 hr 04/05/22 04/05/22 04/05/22 12:47 12:47 12:47 MCV 92.0 MCH 29.7 MCHC 32.2 RDW 13.0 Plt Count 221 MPV 9.5 Immature Gran % (Auto) 0.3 Neut % (Auto) 55.5 Lymph % (Auto) 33.4 [place] % (Auto) 9.6 Eos % (Auto) 1.0 Baso % (Auto) 0.2 Lymph # (Auto) 2.0 [place] # (Auto) 0.6 Eos # (Auto) 0.1 Baso # (Auto) 0.0 Abs Immat Gran (auto) 0.02 Absolute Neuts (auto) 3.3 Absolute Nucleated RBC 0.000 Nucleated RBC % (auto) 0.0 PT INR Anion Gap 9 L Estim Creat Clear Calc 64.9 Estimated GFR > 60 Random Glucose 150 H Calcium 9.1 D Magnesium 2.0 Total Bilirubin 0.3 Direct Bilirubin 0.2 AST 14 D ALT 12 Alkaline Phosphatase 71 D Troponin I High Sens Total Protein 7.4 Albumin 3.8 COVID-19 (GONZALEZ) Negative COVID-19 Clin Com See Note 04/05/22 04/05/22 12:47 12:47 MCV MCH MCHC RDW Plt Count MPV Immature Gran % (Auto) Neut % (Auto) Lymph % (Auto) [place] % (Auto) Eos % (Auto) Baso % (Auto) Lymph # (Auto) [place] # (Auto) Eos # (Auto) Baso # (Auto) Abs Immat Gran (auto) Absolute Neuts (auto) Absolute Nucleated RBC Nucleated RBC % (auto) PT 15.3 H INR 1.3 H Anion Gap Estim Creat Clear Calc Estimated GFR Random Glucose Calcium Magnesium Total Bilirubin Direct Bilirubin AST ALT Alkaline Phosphatase Troponin I High Sens < 3.5 Total Protein Albumin COVID-19 (GONZALEZ) COVID-19 Clin Com
[2022-04-05 14:30] LABS: Appearance Urine HAZY; Color Urine YELLOW; Glucose Urine UA NEG (NEG); Leukocyte Esterase Urine 3+ (NEG); Nitrite Urine NEG (NEG); UACC Culture Trigger YES; Urine Blood TRACE (NEG); Urine Ketones NEG (NEG); Urine Protein NEG (NEG-TRACE)
[2022-04-05 14:41] LABS: Squamous Epithelial Cell Urine 1+ /LPF
[2022-04-05 14:42] LABS: Bacteria Urine 4+ /LPF; WBC Clumps Urine NOTED
[2022-04-05 14:43] LABS: WBC Urine TNTC /HPF (0-4)
[2022-04-05 14:44] LABS: RBC Urine 0 /HPF (0)
[2022-04-05 16:38] VITALS: BP 111/55; PULSE 51; RESP 16; O2SAT 97
[2022-04-05] MEDS: cefTRIAXone sodium 1 GM in 0.9 % Sodium Chloride 50 ML IV (16:56)
== END 2022-04-05 17:25 | disposition home or self-care (01) ==
PROVIDERS: Emergency Provider Emergency Medicine
DX: N39.0 Urinary tract infection, site not specified (principal); R51.9 Headache, unspecified; R07.89 Other chest pain; R06.02 Shortness of breath; Z20.822 Contact with and (suspected) exposure to COVID-19; Z87.891 Personal history of nicotine dependence; Z79.899 Other long term (current) drug therapy
CPT/HCPCS: 36415; 70450; 71045; 80048; 80076; 81001; 83735; 84484; 85025; 85610; 87086; 87088; 87186; 87635; 93005; 96365; 99284; J0696

== ENCOUNTER 2022-04-21 07:22 | Outpatient (REF) | payer MEDICARE, MEDICAID, SELFPAY ==
--- NOTE | ~2022-04-21 | XR_ITS ---
EXAMINATION: XR HAND, LEFT CLINICAL INFORMATION: Pain. COMPARISON: None TECHNIQUE: PA, lateral, and oblique views of the left hand. FINDINGS: There is mild bony demineralization. Bony alignment is normal. There is a neutral ulnar variance. No fracture or dislocation is seen. The proximal and distal carpal rows are intact. There is mild osteoarthritic change of the first carpometacarpal joint. There is a small sclerotic, well-marginated bone island incidentally noted within the distal ulna. The soft tissue planes are unremarkable, without gas or foreign body. XR/XR hand LT min 3V IMPRESSION: 1. No fracture or dislocation is seen. 2. There is mild osteoarthritic change of the first carpometacarpal joint.
== END 2022-04-21 07:23 | disposition home or self-care (01) ==
LOC: HO.HOSX 07:22
PROVIDERS: Visit Provider Physician Assistant
DX: M79.642 Pain in left hand (principal); M77.8 Other enthesopathies, not elsewhere classified
CPT/HCPCS: 73130; 99202

== ENCOUNTER 2022-06-01 08:24 | Emergency (ER) | payer MEDICARE, MEDICAID, SELFPAY ==
--- NOTE | ~2022-06-01 | XR_ITS ---
EXAMINATION: XR HAND WRIST LEFT CLINICAL INFORMATION: Fall COMPARISON: None TECHNIQUE: 4 views left wrist/hand. FINDINGS: Bones appear to be diffusely osteopenic. No evidence of acute fracture, subluxation or focal soft tissue swelling. The joint spaces of the wrist are maintained. Small osteophytes of the mildly degenerated first carpometacarpal joint and at some of the interphalangeal joints, including thumb interphalangeal joint. XR/XR hand wrist LT IMPRESSION: No acute findings. No fracture or malalignment in the left hand or wrist.
--- NOTE | ~2022-06-01 | CT_ITS ---
EXAMINATION: CT HEAD W/O IV CONTRAST CT CERVICAL SPINE W/O IV CONTRAST CLINICAL INFORMATION: Unwitnessed fall. COMPARISON: 04/05/2022. TECHNIQUE: Head - Contiguous axial imaging of the head was performed from the skull base to the vertex without the administration of intravenous contrast, and axial images are reconstructed at 2 mm and 5 mm slice thickness. Cervical spine - A volumetric, helical CT acquisition of the cervical spine was obtained without contrast; in addition to the standard set of axial images, multiplanar reformatted images were provided in the coronal and sagittal imaging planes. This CT examination was performed using dose optimization techniques as appropriate, variously including the following: *Automated exposure control *Adjustment of mA and/or kV according to patient size (this includes techniques or standardized protocols for targeted exams where dose is matched to indication/reason for exam; i.e. extremities or head) *Use of iterative reconstruction technique DLP: 886 mGy-cm (total) FINDINGS: HEAD: No evidence of intracranial hemorrhage, major vascular territory infarction, focal mass effect or midline shift. Rivera to white matter differentiation is preserved. No extra-axial fluid collections. Chronic mild to moderate patchy hypoattenuation within supratentorial white matter is compatible with sequela of microangiopathy. Chronic mild parenchymal volume loss with commensurate prominence of ventricles and sulci. No hydrocephalus. The calvarium is intact and the visualized paranasal sinuses, mastoid air cells and middle ear cavities are clear. The temporomandibular joints are unremarkable. The orbits and globes are unremarkable. CERVICAL SPINE: The craniocervical junction is normal. The occipital condyles, dens and atlantodental articulation are intact. The vertebral body heights and alignment are maintained. No fractures in the anterior or posterior elements. No prevertebral soft tissue swelling. Mild multilevel discovertebral degenerative changes of the visualized cervical and upper thoracic spine. Moderate disc degenerative changes and bilateral uncovertebral joint hypertrophy at C5-C6 and C6-C7. Moderate right-sided neural foraminal stenosis at C5-C6. Otherwise, no significant narrowing of the central spinal canal or neural foramina. No hematoma in the visualized neck. Mild centrilobular emphysema of the visualized lung apices. Thyroid gland is normal. CT/CT cervical spine wo IV con IMPRESSION: * No intracranial hemorrhage or other acute intracranial pathology compared to prior head CT from 04/05/2022. * No fracture or malalignment in the degenerated cervical spine.
--- NOTE | ~2022-06-01 | XR_ITS ---
EXAMINATION: XR CHEST CLINICAL INFORMATION: History of fall. COMPARISON: 04/05/2022 TECHNIQUE: Frontal view of the chest was obtained. FINDINGS: Lungs are well expanded. Bronchial cleaning are chronically thickened. Query if there is any history of cigarette smoking, bronchitis and/or asthma. Minimal linear opacity of likely atelectasis in each upper lobe. No overt airspace disease. No acute findings compared to 04/05/2022. No pleural effusion or pneumothorax. Cardiomediastinal silhouette has normal size and contour. The visualized bones are intact. XR/XR chest 1V IMPRESSION: * No acute pulmonary disease compared to 04/05/2022. * The airway cleaning appear to be chronically thickened.
[2022-06-01 08:32] VITALS: BP 125/57; BP 132/80; PULSE 57; PULSE 60; RESP 18; TEMP 36.6; O2SAT 98; O2SAT 99; BMI 27.6
--- NOTE | 2022-06-01 08:35 | ECG_ITS ---
Test Reason : Fall Blood Pressure : / mmHG Vent. Rate : 056 BPM Atrial Rate : 056 BPM P-R Int : 168 ms QRS Dur : 084 ms QT Int : 408 ms P-R-T Axes : 065 044 034 degrees QTc Int : 393 ms Sinus bradycardia Otherwise normal ECG When compared with ECG of 05-APR-2022 12:32, No significant change was found Referred By: Missy Perez Electronically Signed By:
[2022-06-01 08:47] LABS: MANUAL DIFF FLAG NO
--- NOTE | 2022-06-01 08:49 | PC.NURSE ---
IV established 22G L forearm. Labs sent, triage, RN made aware of report. Call flood within reach.
[2022-06-01 09:00] LABS: Basophils Percent Auto 0.1 % (0-2); Eosinophils Absolute Auto 0.1 X10*3/uL (0.0-0.4); Hematocrit 37.3 % (37.0-47.0); Imm Gran Abs Auto 0.02 X10*3/uL (0.00-0.03); Imm Gran Pct Auto 0.3 % (0.0-0.4); Lymphocytes Absolute Auto 1.9 X10*3/uL (1.2-4.9); Lymphocytes Percent Auto 28.6 % (20-40); Mean Corpuscular HGB Conc 32.2 g/dl (31.0-35.0); Mean Corpuscular Hemoglobin 29.4 pg (27.0-33.0); Mean Corpuscular Volume 91.4 fL (80.0-98.0); Mean Platelet Volume 10.3 fL (9.4-12.3); Monocytes Absolute Auto 0.6 X10*3/uL (0.1-1.2); Monocytes Percent Auto 8.8 % (2-11); Neutrophils Absolute Auto 4.1 x10*3/uL (2.0-8.3); Neutrophils Percent Auto 61.2 % (45-73); Platelet Count 179 X10*3/uL (160-400); Red Blood Count 4.08 X10*6/uL (4.20-5.50); Red Cell Distribution Width 12.5 % (11.0-16.0); White Blood Count 6.7 X10*3/uL (4.8-10.8)
[2022-06-01 09:05] LABS: Alanine Aminotransferase 16 U/L (0-31); Albumin Level 3.8 g/dL (3.5-5.0); Alkaline Phosphatase 72 U/L (39-117); Anion Gap 11 (12-20); Aspartate Amino Transferase 17 U/L (5-31); Bilirubin Direct < 0.2 mg/dL (0.0-0.5); Bilirubin Total 0.3 mg/dL (0.0-1.0); Blood Urea Nitrogen 22 mg/dL (9-16); Calcium 9.1 mg/dL (8.4-10.2); Carbon Dioxide 25 mmol/L (22-29); Chloride 111 mmol/L (96-108); Creatinine Clr Calc Pharmacy 68.5; Estimated Glomerular Filt Rate > 60; Glucose Random 121 mg/dL (60-115); Potassium 4.3 mmol/L (3.3-5.1); Sodium 143 mmol/L (135-145); Total Protein 7.3 g/dL (6.5-8.0)
--- NOTE | 2022-06-01 09:06 | ED_ITS ---
HPI - Fall General Chief Complaint: Fall Stated Complaint: UNWIT FALL T-1,+THINNER,FROM SNF PER EMS Time Seen by Provider: 06/01/22 08:28 Source: patient and EMS Mode of arrival: EMS History of Present Illness HPI Narrative: 71-year-old female with past medical history of CAD, diabetes, HLD, DVT/PE on Eliquis, vascular dementia, BIBA?from SNF for reported unwitnessed fall yesterday at 15:00. Per EMS patient fell outside, was found lying on ground in ditch. Unknown head trauma or LOC. patient reports left wrist pain. History limited due to patient's baseline dementia MD complaint: fall Onset (ago): day(s) Related Data Home Medications Medication Instructions Recorded Confirmed acetaminophen 325 mg tablet 650 mg PO Q6H PRN Dehydration 02/26/22 04/05/22 apixaban 5 mg tablet 5 mg PO BID 02/26/22 04/05/22 brimonidine 0.2 % eye drops 1 drp ophthalmic (eye) DAILY 02/26/22 04/05/22 duloxetine 30 mg capsule,delayed 30 mg PO BEDTIME 02/26/22 04/05/22 release olanzapine 10 mg tablet 10 mg PO BEDTIME 02/26/22 04/05/22 simvastatin 10 mg tablet 10 mg PO BEDTIME 02/26/22 04/05/22 timolol maleate 0.5 % eye drops 1 drp ophthalmic (eye) DAILY 02/26/22 04/05/22 topiramate 25 mg tablet 25 mg PO BID 02/26/22 04/05/22 trazodone 50 mg tablet 25 mg BEDTIME 02/26/22 04/05/22 insulin glargine 100 unit/mL 17 unit subcut BEDTIME 04/05/22 04/05/22 subcutaneous solution (Lantus U-100 Insulin) melatonin 5 mg tablet 5 mg PO BEDTIME PRN Insomnia 04/05/22 04/05/22 Previous Rx's Medication Instructions Recorded insulin lispro 100 unit/mL See Protocol subcut QIDACHS #10 mL 03/03/22 subcutaneous solution (Humalog U-100 Insulin) sitagliptin 100 mg tablet (Januvia) 100 mg PO DAILY #30 tabs 03/03/22 cefuroxime axetil 250 mg tablet 250 mg PO BID 10 days #20 tabs 04/05/22 cefuroxime axetil 500 mg tablet 500 mg PO BID #20 tabs 04/05/22 cefuroxime axetil 250 mg tablet 250 mg PO BID 7 days #14 tabs 06/01/22 Allergies Allergy/AdvReac Type Severity Reaction Status Date / Time Penicillins Allergy Hives Verified 06/01/22 08:32 Review of Systems Review of Systems: Musculoskeletal: + joint pain, +fall ROS limited due to baseline dementia Yes all other systems are reviewed and are negative Constitutional: Constitutional: Reports as per [facility] Past Medical History Attestation statement: The following information was validated with the patient. Medical History Coronary artery disease DVT (deep venous thrombosis) Glaucoma Neuropathy Non-insulin dependent diabetes mellitus Pulmonary embolism Vascular dementia Social History Social History Household Members: Other Household Members Other:: Rest Home Housing: [facility] Do you presently have visiting nurse or other home services: Yes Unable to assess alcohol history related to: Unable to respond Alcohol intake: never Patient Tobacco Use Status: Former Tobacco user Use of substances other than those prescribed or required for medical reasons: No Advance Directives: No Advance Directives Information Provided: No service: No Physical Exam Vital Signs: Vital Signs: Last Vital Signs Temp 97.7 F 06/01/22 13:21 Pulse 69 06/01/22 14:24 Resp 18 06/01/22 14:24 BP 127/76 06/01/22 14:24 Pulse Ox 96 06/01/22 14:24 O2 Del Method 06/01/22 14:24 BMI result Body Mass Index 27.6 Const: General: cooperative, healthy appearing, no acute distress, alert and awake Orientation/consciousness: oriented to person and oriented to place Limitations: no limitations HEENT: Head: Yes normal to inspection, Yes atraumatic, No Del Castillo's sign and No raccoon eyes Ears: hearing grossly normal bilaterally General nose exam: Normal external nose present Face and sinus: Yes normal facial exam Mouth: mucous membranes dry Eyes: General: appearance normal, both eyes and all related structures EOM: EOMs intact bilaterally Neck: Other: No midline cervical spinous tenderness Neck: Yes normal visual inspection and Yes no meningeal signs Resp: Effort & Inspection: normal respiratory effort and no respiratory distress Auscultation: clear to auscultation bilaterally Cardio: Rate: regular rate Heart sounds: S1 normal heart sound present and S2 normal heart sound present GI: Inspection: Yes normal to inspection Palpation (GI): Soft to palpation, nontender, no guarding and not rigid : General: Yes no CVA tenderness Back/Spine/Pelvis: Other: No midline thoracic/lumbar spinous tenderness/step-off or deformity Back: no CVA tenderness Skin: Rashes: no rashes Wounds: no wounds Neuro: General: oriented to person, oriented to place, tone normal, moves all extremities, no meningeal signs, no focal motor deficits and CN's II-XI intact bilaterally Extrem: General: Yes normal to inspection Course Course Course Narrative: CT head/brain wo IV con/CT cervical spine wo IV con IMPRESSION: *? No intracranial hemorrhage or other acute intracranial pathology compared to prior head CT from 04/05/2022. *? No fracture or malalignment in the degenerated cervical spine. -no leukocytosis. Labs otherwise at patient's baseline. Troponin negative XR hand wrist LT IMPRESSION: No acute findings. No fracture or malalignment in the left hand or wrist.? XR chest 1V IMPRESSION: *? No acute pulmonary disease compared to 04/05/2022. *? The airway cleaning appear to be chronically thickened. -UA infected, patient received dose of IV Rocephin in the ED. Once completed is safe for discharge back to her SNF >> patient ambulated in the ED safely with steady gait, is clear for discharge back to her assisted living MDM - Fall MDM Narrative Medical decision making narrative: 71-year-old female with past medical history of CAD, diabetes, HLD, DVT/PE on Eliquis, vascular dementia, BIBA?from SNF for reported unwitnessed fall yesterday at 15:00. On exam vital signs stable, NAD, nontoxic appearing, no midline spinous tenderness throughout, no evidence of trauma, A&Ox2, A&O x2 with baseline dementia. Concern for ICH vs fracture vs ?Syncope. Rule out metabolic and infectious etiologies Plan: EKG, labs, UA, CXR, head/C-spine CT, IVF, re-evaluate Differential Diagnosis Differential diagnosis: Likely syncope, fracture, compression fracture, concussion with loss of consciousness and concussion without loss of consciousness Medical Records Attestation: I reviewed the patient's medical records. Lab Data Attestation: I reviewed the patient's lab results. Result diagrams: 06/01/22 08:43 06/01/22 08:43 Labs: Lab Results 06/01/22 06/01/22 06/01/22 Range/Units 08:43 08:43 08:43 WBC 6.7 (4.8-10.8) X10*3/uL RBC 4.08 L (4.20-5.50) X10*6/uL Hgb 12.0 (12.0-16.0) g/dl Hct 37.3 (37.0-47.0) % MCV 91.4 (80.0-98.0) fL MCH 29.4 (27.0-33.0) pg MCHC 32.2 (31.0-35.0) g/dl RDW 12.5 (11.0-16.0) % Plt Count 179 (160-400) X10*3/uL MPV 10.3 (9.4-12.3) fL Immature Gran % (Auto) 0.3 (0.0-0.4) % Neut % (Auto) 61.2 (45-73) % Lymph % (Auto) 28.6 (20-40) % Lipscomb % (Auto) 8.8 (2-11) % Eos % (Auto) 1.0 (0-4) % Baso % (Auto) 0.1 (0-2) % Lymph # (Auto) 1.9 (1.2-4.9) X10*3/uL Lipscomb # (Auto) 0.6 (0.1-1.2) X10*3/uL Eos # (Auto) 0.1 (0.0-0.4) X10*3/uL Baso # (Auto) 0.0 (0.0-0.2) X10*3/uL Abs Immat Gran (auto) 0.02 (0.00-0.03) X10*3/uL Absolute Neuts (auto) 4.1 (2.0-8.3) x10*3/uL Absolute Nucleated RBC 0.000 (0.0-0.012) X10*3/uL Nucleated RBC % (auto) 0.0 (0.0-0.2) /100WBC PT (10.0-13.1) SEC INR (0.9-1.1) Sodium 143 (135-145) mmol/L Potassium 4.3 (3.3-5.1) mmol/L Chloride 111 H (96-108) mmol/L Carbon Dioxide 25 (22-29) mmol/L Anion Gap 11 L (12-20) BUN 22 H (9-16) mg/dL Creatinine 0.78 (0.5-1.4) mg/dL Estim Creat Clear Calc 68.5 Estimated GFR > 60 Random Glucose 121 H (60-115) mg/dL Calcium 9.1 (8.4-10.2) mg/dL Magnesium 2.0 (1.6-2.6) mg/dL Total Bilirubin 0.3 (0.0-1.0) mg/dL Direct Bilirubin < 0.2 (0.0-0.5) mg/dL AST 17 (5-31) U/L ALT 16 (0-31) U/L Alkaline Phosphatase 72 (39-117) U/L Troponin I High Sens < 3.5 (<3.5-17.0) ng/L Total Protein 7.3 (6.5-8.0) g/dL Albumin 3.8 (3.5-5.0) g/dL Urine Color Urine Appearance Urine pH (5.0-9.0) Ur Specific Carpenter (1.005-1.025) Urine Protein (Neg-Trace) mg/dL Urine Glucose (UA) (Negative) mg/dL Urine Ketones (Negative) mg/dL Urine Blood (Negative) Urine Nitrite (Negative) Ur Leukocyte Esterase (Negative) Urine RBC (0-2) /HPF Urine WBC (0-5) /HPF Ur Squamous Epith Cells (0-2) /HPF Urine Bacteria (None Seen) Hyaline Casts (0-2) /LPF COVID-19 (GONZALEZ) (Negative) COVID-19 Clin Com 06/01/22 06/01/22 06/01/22 Range/Units 08:43 10:48 13:10 WBC (4.8-10.8) X10*3/uL RBC (4.20-5.50) X10*6/uL Hgb (12.0-16.0) g/dl Hct (37.0-47.0) % MCV (80.0-98.0) fL MCH (27.0-33.0) pg MCHC (31.0-35.0) g/dl RDW (11.0-16.0) % Plt Count (160-400) X10*3/uL MPV (9.4-12.3) fL Immature Gran % (Auto) (0.0-0.4) % Neut % (Auto) (45-73) % Lymph % (Auto) (20-40) % Lipscomb % (Auto) (2-11) % Eos % (Auto) (0-4) % Baso % (Auto) (0-2) % Lymph # (Auto) (1.2-4.9) X10*3/uL Lipscomb # (Auto) (0.1-1.2) X10*3/uL Eos # (Auto) (0.0-0.4) X10*3/uL Baso # (Auto) (0.0-0.2) X10*3/uL Abs Immat Gran (auto) (0.00-0.03) X10*3/uL Absolute Neuts (auto) (2.0-8.3) x10*3/uL Absolute Nucleated RBC (0.0-0.012) X10*3/uL Nucleated RBC % (auto) (0.0-0.2) /100WBC PT 14.0 H (10.0-13.1) SEC INR 1.2 H (0.9-1.1) Sodium (135-145) mmol/L Potassium (3.3-5.1) mmol/L Chloride (96-108) mmol/L Carbon Dioxide (22-29) mmol/L Anion Gap (12-20) BUN (9-16) mg/dL Creatinine (0.5-1.4) mg/dL Estim Creat Clear Calc Estimated GFR Random Glucose (60-115) mg/dL Calcium (8.4-10.2) mg/dL Magnesium (1.6-2.6) mg/dL Total Bilirubin (0.0-1.0) mg/dL Direct Bilirubin (0.0-0.5) mg/dL AST (5-31) U/L ALT (0-31) U/L Alkaline Phosphatase (39-117) U/L Troponin I High Sens (<3.5-17.0) ng/L Total Protein (6.5-8.0) g/dL Albumin (3.5-5.0) g/dL Urine Color Yellow Urine Appearance Clear Urine pH 6.0 (5.0-9.0) Ur Specific Carpenter 1.015 (1.005-1.025) Urine Protein Negative (Neg-Trace) mg/dL Urine Glucose (UA) Negative (Negative) mg/dL Urine Ketones Negative (Negative) mg/dL Urine Blood Negative (Negative) Urine Nitrite Positive H (Negative) Ur Leukocyte Esterase Moderate (2+) H (Negative) Urine RBC 0-2 (0-2) /HPF Urine WBC 11-20 H (0-5) /HPF Ur Squamous Epith Cells 0-2 (0-2) /HPF Urine Bacteria 4+ (None Seen) Hyaline Casts 0-2 (0-2) /LPF COVID-19 (GONZALEZ) Negative (Negative) COVID-19 Clin Com See Note ECG Data Attestation: I personally reviewed and interpreted this ECG as follows: ECG interpretation date: 06/01/22 ECG interpretation time: 08:56 Interpretation: EKG sinus bradycardia at a rate of 57. FL interval 196. QRS 88. No STEMI Discharge Plan Discharge Clinical Impression: Acute UTI, Falls Patient Disposition: er [facility] Instructions: Fall Prevention (ED), Urinary Tract Infection in Older Adults (ED) Additional Instructions: You have a urine infection. Ceftin is an antibiotic please take as prescribed. Make sure you are staying hydrated. If you have recurrent falls, fever, abdominal pain, nausea or vomiting return to the ED Prescriptions: New cefuroxime axetil 250 mg tablet 250 mg PO BID 7 Days Qty: 14 0RF No Action apixaban 5 mg Tablet 5 mg PO BID topiramate 25 mg Tablet 25 mg PO BID duloxetine 30 mg Capsule,Delayed Release(Dr/Ec) 30 mg PO BEDTIME olanzapine 10 mg Tablet 10 mg PO BEDTIME simvastatin 10 mg Tablet 10 mg PO BEDTIME trazodone 50 mg Tablet 25 mg BEDTIME brimonidine 0.2 % Drops 1 drp ophthalmic (eye) DAILY timolol maleate 0.5 % Drops 1 drp OPHTHALMIC (EYE) DAILY acetaminophen 325 mg Tablet 650 mg PO Q6H MDD PAIN/HEADACHE PRN (Reason: Dehydration) Januvia 100 mg Tablet 100 mg PO DAILY Qty: 30 0RF insulin lispro [Humalog U-100 Insulin] 100 unit/mL Solution See Protocol subcut QIDACHS Qty: 10 0RF Protocol: Insulin Correction Scale Less than or equal to 110 ---- Give (units): 0 111 to 150 Give (units): 0 151 to 200 Give (units): 2 201 to 250 Give (units): 4 251 to 300 Give (units): 6 301 to 350 Give (units): 8 Greater than 350 Give (units): 10 Sally ORTEGA if Blood Glucose > : 350 melatonin 5 mg Tablet 5 mg PO BEDTIME PRN (Reason: Insomnia) insulin glargine [Lantus U-100 Insulin] 100 unit/mL solution 17 unit subcut BEDTIME cefuroxime axetil 250 mg tablet 250 mg PO BID 10 Days Qty: 20 0RF cefuroxime axetil 500 mg tablet 500 mg PO BID Qty: 20 0RF Referrals: Phuong Hurst NP [Primary Care Provider] - 2 days
[2022-06-01 09:10] LABS: Troponin-I High Sensitivity < 3.5 ng/L (<3.5-17.0)
[2022-06-01 09:11] LABS: INTERNATIONAL NORM RATIO 1.2 (0.9-1.1)
[2022-06-01 09:41] VITALS: BP 131/70; PULSE 55; RESP 14; TEMP 36.6; O2SAT 97
[2022-06-01 11:11] LABS: COVID-19 Test Negative (Negative); IDNOW Serial# 55D5AD1C
[2022-06-01] MEDS: 0.9 % Sodium Chloride 500 ML 999 ML IV (11:36)
--- NOTE | 2022-06-01 12:35 | PC.NURSE ---
pt is a/o no sob/sanjay noted lungs - diminished all lobes. heart sounds regular skin pink warm dry speaks in full sentences. no hematoma/bruising noted on pt. pt aware of plan of care.
[2022-06-01 13:03] VITALS: BP 138/70; PULSE 57; RESP 15; TEMP 35.7; O2SAT 98
[2022-06-01 13:21] VITALS: BP 143/68; PULSE 55; RESP 12; TEMP 36.5; O2SAT 98
[2022-06-01 13:23] LABS: Appearance Urine Clear; Color Urine Yellow; Glucose Urine UA Negative (Negative); Leukocyte Esterase Urine Moderate (2+) (Negative); Nitrite Urine Positive (Negative); Specific Gravity - Urine 1.015 (1.005-1.025); UMIC TRIGGER UACC YES; Urine Blood Negative (Negative); Urine Ketones Negative (Negative); Urine Protein Negative (Neg-Trace)
[2022-06-01 13:25] LABS: Bacteria Urine 4+ (None Seen); Hyaline Casts Urine 0-2 /LPF (0-2); RBC Urine 0-2 /HPF (0-2); Squamous Epithelial Cell Urine 0-2 /HPF (0-2); UACC Culture Trigger YES
[2022-06-01 14:24] VITALS: BP 127/76; PULSE 69; RESP 18; O2SAT 96
[2022-06-01] MEDS: cefTRIAXone sodium 1 GM in 0.9 % Sodium Chloride 50 ML IV (14:33)
== END 2022-06-01 21:49 | disposition skilled nursing facility (03) ==
PROVIDERS: Physician Assistant; Emergency Provider Emergency Medicine; PCP Nurse Practitioner Adult Health
DX: S09.90XA Unspecified injury of head, initial encounter (principal); M54.50 Low back pain, unspecified; R51.9 Headache, unspecified; M25.532 Pain in left wrist; I25.10 Atherosclerotic heart disease of native coronary artery without angina pectoris; W01.0XXA Fall on same level from slipping, tripping and stumbling without subsequent striking against object, initial encounter; Y93.9 Activity, unspecified; Y92.129 Unspecified place in nursing home as the place of occurrence of the external cause; Y99.9 Unspecified external cause status; Z20.822 Contact with and (suspected) exposure to COVID-19; Z86.718 Personal history of other venous thrombosis and embolism; Z79.01 Long term (current) use of anticoagulants; Z79.899 Other long term (current) drug therapy; Z87.891 Personal history of nicotine dependence
CPT/HCPCS: 36415; 70450; 71045; 72125; 73110; 73130; 80048; 80076; 81001; 83735; 84484; 85025; 85610; 87086; 87088; 87186; 87635; 93005; 96361; 96365; 99284; 99285; J0696

== ENCOUNTER 2022-07-09 08:10 | Emergency (ER) | payer MEDICARE, MEDICAID, SELFPAY ==
--- NOTE | ~2022-07-09 | CT_ITS ---
EXAMINATION: CT ABDOMEN AND PELVIS WITHOUT CONTRAST CLINICAL INFORMATION: Constipation with tenderness. Status post disimpaction. COMPARISON: May 04, 2021 TECHNIQUE: Multidetector volumetric imaging was performed from the superior aspect of the liver through the pubic symphysis. Sagittal and coronal reformatted images were obtained on the technologist's workstation. This CT examination was performed using dose optimization techniques as appropriate, variously including the following: *Automated exposure control *Adjustment of mA and/or kV according to patient size (this includes techniques or standardized protocols for targeted exams where dose is matched to indication/reason for exam; i.e. extremities or head) *Use of iterative reconstruction technique DLP: 481 mGy-cm FINDINGS: LUNG BASES: There is bronchial wall thickening present with some tree-in-bud disease at the left base but no confluent airspace disease. No pleural or pericardial effusion. Region of atelectasis or scarring seen within the lingula. LIVER, GALLBLADDER, AND BILIARY TREE: The liver is normal in size, shape, and attenuation. No focal hepatic lesion or biliary ductal dilatation is present. The gallbladder is unremarkable with no evidence of radiopaque gallstones, gallbladder wall thickening, or obvious pericholecystic inflammatory changes. PANCREAS: There is some atrophic change present. No abnormal mass or peripancreatic inflammatory change. SPLEEN: Unremarkable. Calcified granuloma present. ADRENAL GLANDS: Unremarkable. KIDNEYS AND URETERS: The kidneys are normal in size, shape, and attenuation. No hydronephrosis, hydroureter, or calculi seen. No perinephric stranding. Left renal parapelvic cysts seen. BLADDER: Unremarkable. GASTROINTESTINAL TRACT: No dilated loops of large or small bowel are evident. There is a large colonic stool burden present. No free air or free fluid is seen. No pericolonic inflammatory change. The appendix is unremarkable. There appears be some rectal wall thickening without adjacent inflammatory change. ABDOMINAL WALL: There is a small fat-containing umbilical hernia seen. LYMPH NODES: Prominent inguinal nodes present. No intra-abdominal lymphadenopathy appreciated. VASCULAR: Calcified plaque within the abdominal aorta. No abdominal aortic aneurysm. PELVIC VISCERA: Unremarkable. OSSEOUS STRUCTURES: No suspicious acute destructive bony lesions identified. Mild grade 1 spondylolisthesis L3-L4. Degenerative disc disease seen L4-S1. CT/CT abdomen pelvis wo IV con IMPRESSION: Large colonic stool burden. No evidence of ileus or obstruction. Fleischner guidelines were followed.
[2022-07-09 08:27] VITALS: BP 135/75; PULSE 62; O2SAT 100
--- NOTE | 2022-07-09 08:37 | ED_ITS ---
HPI - Abdominal Pain General Chief Complaint: Abdominal Pain Stated Complaint: CONSTIPATION FROM SNF PER EMS Time Seen by Provider: 07/09/22 08:25 Source: patient, EMS and old records reviewed Mode of arrival: EMS Limitations: no limitations History of Present Illness HPI narrative: 72 yo female with history of vascular dementia, CAD, DM, DVT/PE on Eliquis, HLD, history of recurrent UTIs, glaucoma who presents to the ER via EMS from her SNF with reports of abdominal pain and constipation. Per EMS reports patient was on the toilet this morning and unable to have a BM, complaining of pain. Last BM reportedly 2 days ago. Patient reports she was on the toilet and having uterus pain similar to that when she has had a UTI in the past. No dysuria, frequency, urgency, nausea or vomiting. She denies fever or chills. No BRBPR. MD elicited complaint: abdominal pain Pertinent past history: constipation Onset (ago): day(s) Pain Consistency: intermittent Location: suprapubic Severity: moderate Quality: cramping and stabbing Radiation: none Migration to: no migration Exacerbating factors: nothing Relieving factors: nothing Context: history of similar episodes Associated symptoms: constipation Related Data Home Medications Medication Instructions Recorded Confirmed acetaminophen 325 mg tablet 650 mg PO Q6H PRN Dehydration 02/26/22 04/05/22 apixaban 5 mg tablet 5 mg PO BID 02/26/22 04/05/22 brimonidine 0.2 % eye drops 1 drp ophthalmic (eye) DAILY 02/26/22 04/05/22 duloxetine 30 mg capsule,delayed 30 mg PO BEDTIME 02/26/22 04/05/22 release olanzapine 10 mg tablet 10 mg PO BEDTIME 02/26/22 04/05/22 simvastatin 10 mg tablet 10 mg PO BEDTIME 02/26/22 04/05/22 timolol maleate 0.5 % eye drops 1 drp ophthalmic (eye) DAILY 02/26/22 04/05/22 topiramate 25 mg tablet 25 mg PO BID 02/26/22 04/05/22 trazodone 50 mg tablet 25 mg BEDTIME 02/26/22 04/05/22 insulin glargine 100 unit/mL 17 unit subcut BEDTIME 04/05/22 04/05/22 subcutaneous solution (Lantus U-100 Insulin) melatonin 5 mg tablet 5 mg PO BEDTIME PRN Insomnia 04/05/22 04/05/22 Previous Rx's Medication Instructions Recorded insulin lispro 100 unit/mL See Protocol subcut QIDACHS #10 mL 03/03/22 subcutaneous solution (Humalog U-100 Insulin) sitagliptin 100 mg tablet (Januvia) 100 mg PO DAILY #30 tabs 03/03/22 cefuroxime axetil 250 mg tablet 250 mg PO BID 10 days #20 tabs 04/05/22 cefuroxime axetil 500 mg tablet 500 mg PO BID #20 tabs 04/05/22 cefuroxime axetil 250 mg tablet 250 mg PO BID 7 days #14 tabs 06/01/22 bisacodyl 10 mg rectal suppository 10 mg MI DAILY PRN constipation 07/09/22 (Dulcolax (bisacodyl)) #12 ea docusate sodium 100 mg capsule 100 mg PO BID #30 caps 07/09/22 (Colace) polyethylene glycol 3350 17 17 g PO DAILY #119 grams 07/09/22 gram/dose oral powder (Miralax) sennosides 8.6 mg capsule (senna) 8.6 mg PO BEDTIME #14 caps 07/09/22 Allergies Allergy/AdvReac Type Severity Reaction Status Date / Time Penicillins Allergy Hives Verified 06/01/22 08:32 Review of Systems Review of Systems Constitutional: No Fever, No Chills ENT/Mouth: No sore throat, No Rhinorrhea Cardiovascular: No Chest Pain, No SOB, No Orthopnea, No Edema Respiratory: No Cough, No Sputum, No Wheezing, No dyspnea Gastrointestinal: No Nausea, No Vomiting, No Diarrhea, + abdominal Pain, No Hematochezia, No Melena, +Constipation Genitourinary: No Dysuria, No Urinary Frequency, No Hematuria Musculoskeletal: No joint pain, No Myalgias Skin: No Skin Lesions, No rash Neuro: No Weakness, No Numbness, No Dizziness, No Headache Heme/Lymph: No Bruising, No Lymphadenopathy Endocrine: No Polyuria, No Polydipsia PMFSH Past Medical History Medical History Coronary artery disease DVT (deep venous thrombosis) Glaucoma Neuropathy Non-insulin dependent diabetes mellitus Pulmonary embolism Vascular dementia Social History Social History Household Members: Other Household Members Other:: Rest Home Housing: Long-Term Do you presently have visiting nurse or other home services: Yes Unable to assess alcohol history related to: Unable to respond Alcohol intake: never Patient Tobacco Use Status: Former Tobacco user Use of substances other than those prescribed or required for medical reasons: No Advance Directives: No Advance Directives Information Provided: Yes service: No Physical Exam ED Vital Signs: Vital Signs - 24 hr 07/09/22 08:55 07/09/22 09:03 07/09/22 10:45 Temperature 97.5 F 97.5 F Pulse Rate 59 59 57 Respiratory Rate 16 16 18 Blood Pressure 120/57 L 120/57 L 115/57 L Pulse Oximetry 97 97 98 Oxygen Delivery Method Room Air Room Air Room Air BMI result Body Mass Index 20.7 Appearance: Alert. Oriented X2. No acute distress. Eyes: Pupils equal, round and reactive to light. ENT: Pharynx normal. Neck: Normal inspection. Neck supple. CVS: Normal heart rate and rhythm. Pulses normal. Respiratory: No respiratory distress. Breath sounds normal. Abdomen: Soft with some fullness of her lower abdomen and generalized tenderness, decrease but present +BS x4 GIOVANNY: normal rectal tone, hard brown stool in the rectal vault Skin: Skin warm and dry. Normal skin color. Normal skin turgor. No rashes. Extremities: No lower extremity edema. Neuro: Oriented X 2. Confused but appropriate with simple questions. Generalized weakness noted, nonfocal. No motor deficit. No sensory deficit. Procedures Rectal Disimpaction Indication: fecal impaction Procedural Sedation: No Sedation/Analgesia: none Technique: manual disimpaction with gloved finger Result: significant stool output Patient Tolerated Procedure: well and no complications Complications: none Course Course Course Narrative: 72 yo female with history of vascular dementia, recurrent UTIs, hx hypernatremia, presenting with constipation and lower abdominal pain. No vomiting to suggest obstruction, bowel sounds present. Checking labs, UA and CT scan. Reevaluation(s) Reevaluation #1: Disimpacted for large amount of hard, brown stool. Tolerated well. UA + for infection. No leukocytosis or fevers, not septic. Will start oral ceftin Reevaluation #2: CT with large stool burden, no obstruction. given oral laxatives and stool softners. stable for d/c back to [facility] with bowel reg and po abx. MDM - Abdominal Pain Lab Data Result diagrams: 07/09/22 08:45 07/09/22 08:45 Labs: Lab Results 07/09/22 07/09/22 07/09/22 Range/Units 08:45 08:45 08:45 WBC 8.8 (4.8-10.8) X10*3/uL RBC 3.99 L (4.20-5.50) X10*6/uL Hgb 11.9 L (12.0-16.0) g/dl Hct 37.3 (37.0-47.0) % MCV 93.5 (80.0-98.0) fL MCH 29.8 (27.0-33.0) pg MCHC 31.9 (31.0-35.0) g/dl RDW 12.7 (11.0-16.0) % Plt Count 183 (160-400) X10*3/uL MPV 10.1 (9.4-12.3) fL Immature Gran % (Auto) 0.3 (0.0-0.4) % Neut % (Auto) 67.1 (45-73) % Lymph % (Auto) 24.5 (20-40) % Reynolds % (Auto) 7.3 (2-11) % Eos % (Auto) 0.7 (0-4) % Baso % (Auto) 0.1 (0-2) % Lymph # (Auto) 2.2 (1.2-4.9) X10*3/uL Reynolds # (Auto) 0.6 (0.1-1.2) X10*3/uL Eos # (Auto) 0.1 (0.0-0.4) X10*3/uL Baso # (Auto) 0.0 (0.0-0.2) X10*3/uL Abs Immat Gran (auto) 0.03 (0.00-0.03) X10*3/uL Absolute Neuts (auto) 5.9 (2.0-8.3) x10*3/uL Absolute Nucleated RBC 0.000 (0.0-0.012) X10*3/uL Nucleated RBC % (auto) 0.0 (0.0-0.2) /100WBC Sodium 145 (135-145) mmol/L Potassium 4.2 (3.3-5.1) mmol/L Chloride 111 H (96-108) mmol/L Carbon Dioxide 24 (22-29) mmol/L Anion Gap 14 (12-20) BUN 29 H (9-16) mg/dL Creatinine 0.81 (0.5-1.4) mg/dL Estim Creat Clear Calc 62.9 Estimated GFR > 60 Random Glucose 125 H (60-115) mg/dL Calcium 9.0 (8.4-10.2) mg/dL Magnesium 1.9 (1.6-2.6) mg/dL Total Bilirubin 0.4 (0.0-1.0) mg/dL Direct Bilirubin 0.2 (0.0-0.5) mg/dL AST 17 (5-31) U/L ALT 18 (0-31) U/L Alkaline Phosphatase 75 (39-117) U/L Total Protein 7.1 (6.5-8.0) g/dL Albumin 3.9 (3.5-5.0) g/dL Lipase 26 (8-78) U/L Urine Color Urine Appearance Urine pH (5.0-9.0) Ur Specific [place] (1.005-1.025) Urine Protein (Neg-Trace) mg/dL Urine Glucose (UA) (Negative) mg/dL Urine Ketones (Negative) mg/dL Urine Blood (Negative) Urine Nitrite (Negative) Ur Leukocyte Esterase (Negative) Urine RBC (0-2) /HPF Urine WBC (0-5) /HPF Ur Squamous Epith Cells (0-2) /HPF Urine Bacteria (None Seen) Hyaline Casts (0-2) /LPF COVID-19 (GONZALEZ) Negative (Negative) COVID-19 Clin Com See Note 07/09/22 Range/Units 09:38 WBC (4.8-10.8) X10*3/uL RBC (4.20-5.50) X10*6/uL Hgb (12.0-16.0) g/dl Hct (37.0-47.0) % MCV (80.0-98.0) fL MCH (27.0-33.0) pg MCHC (31.0-35.0) g/dl RDW (11.0-16.0) % Plt Count (160-400) X10*3/uL MPV (9.4-12.3) fL Immature Gran % (Auto) (0.0-0.4) % Neut % (Auto) (45-73) % Lymph % (Auto) (20-40) % Reynolds % (Auto) (2-11) % Eos % (Auto) (0-4) % Baso % (Auto) (0-2) % Lymph # (Auto) (1.2-4.9) X10*3/uL Reynolds # (Auto) (0.1-1.2) X10*3/uL Eos # (Auto) (0.0-0.4) X10*3/uL Baso # (Auto) (0.0-0.2) X10*3/uL Abs Immat Gran (auto) (0.00-0.03) X10*3/uL Absolute Neuts (auto) (2.0-8.3) x10*3/uL Absolute Nucleated RBC (0.0-0.012) X10*3/uL Nucleated RBC % (auto) (0.0-0.2) /100WBC Sodium (135-145) mmol/L Potassium (3.3-5.1) mmol/L Chloride (96-108) mmol/L Carbon Dioxide (22-29) mmol/L Anion Gap (12-20) BUN (9-16) mg/dL Creatinine (0.5-1.4) mg/dL Estim Creat Clear Calc Estimated GFR Random Glucose (60-115) mg/dL Calcium (8.4-10.2) mg/dL Magnesium (1.6-2.6) mg/dL Total Bilirubin (0.0-1.0) mg/dL Direct Bilirubin (0.0-0.5) mg/dL AST (5-31) U/L ALT (0-31) U/L Alkaline Phosphatase (39-117) U/L Total Protein (6.5-8.0) g/dL Albumin (3.5-5.0) g/dL Lipase (8-78) U/L Urine Color Yellow Urine Appearance Cloudy Urine pH 6.0 (5.0-9.0) Ur Specific [place] 1.020 (1.005-1.025) Urine Protein 30 (1+) H (Neg-Trace) mg/dL Urine Glucose (UA) Negative (Negative) mg/dL Urine Ketones Negative (Negative) mg/dL Urine Blood Trace H (Negative) Urine Nitrite Negative (Negative) Ur Leukocyte Esterase Large (3+) H (Negative) Urine RBC 6-10 H (0-2) /HPF Urine WBC >50 H (0-5) /HPF Ur Squamous Epith Cells 0-2 (0-2) /HPF Urine Bacteria 2+ (None Seen) Hyaline Casts 0-2 (0-2) /LPF COVID-19 (GONZALEZ) (Negative) COVID-19 Clin Com Discharge Plan Discharge Clinical Impression: Constipation, Acute UTI Patient Disposition: [facility] [place] Instructions: Constipation (ED), Urinary Tract Infection in Older Adults (ED) Additional Instructions: Your urine test showed evidence of infection Recommend treating with Ceftin 250 mg every 12 hours for [address] scan showed large colonic stool burden without obstruction You were disimpacted today Make sure you are drinking plenty of water. Increase your fiber intake. Start daily Miralax 17 g, senna and colace. Recommend Dulcolax or Enema PRN constipation. If you develop new or worsening symptoms call 911 or come back to the ER for further evaluation. Prescriptions: New polyethylene glycol 3350 [Miralax] 17 gram/dose powder 17 g PO DAILY Qty: 119 0RF senna 8.6 mg capsule 8.6 mg PO BEDTIME Qty: 14 0RF docusate sodium [Colace] 100 mg capsule 100 mg PO BID Qty: 30 0RF bisacodyl [Dulcolax (bisacodyl)] 10 mg suppository 10 mg MI DAILY PRN (Reason: constipation) Qty: 12 0RF No Action apixaban 5 mg Tablet 5 mg PO BID topiramate 25 mg Tablet 25 mg PO BID duloxetine 30 mg Capsule,Delayed Release(Dr/Ec) 30 mg PO BEDTIME olanzapine 10 mg Tablet 10 mg PO BEDTIME simvastatin 10 mg Tablet 10 mg PO BEDTIME trazodone 50 mg Tablet 25 mg BEDTIME brimonidine 0.2 % Drops 1 drp ophthalmic (eye) DAILY timolol maleate 0.5 % Drops 1 drp OPHTHALMIC (EYE) DAILY acetaminophen 325 mg Tablet 650 mg PO Q6H MDD PAIN/HEADACHE PRN (Reason: Dehydration) Januvia 100 mg Tablet 100 mg PO DAILY Qty: 30 0RF insulin lispro [Humalog U-100 Insulin] 100 unit/mL Solution See Protocol subcut QIDACHS Qty: 10 0RF Protocol: Insulin Correction Scale Less than or equal to 110 ---- Give (units): 0 111 to 150 Give (units): 0 151 to 200 Give (units): 2 201 to 250 Give (units): 4 251 to 300 Give (units): 6 301 to 350 Give (units): 8 Greater than 350 Give (units): 10 Call MD if Blood Glucose > : 350 melatonin 5 mg Tablet 5 mg PO BEDTIME PRN (Reason: Insomnia) insulin glargine [Lantus U-100 Insulin] 100 unit/mL solution 17 unit subcut BEDTIME cefuroxime axetil 250 mg tablet 250 mg PO BID 10 Days Qty: 20 0RF cefuroxime axetil 500 mg tablet 500 mg PO BID Qty: 20 0RF cefuroxime axetil 250 mg tablet 250 mg PO BID 7 Days Qty: 14 0RF
[2022-07-09 08:48] LABS: MANUAL DIFF FLAG NO
[2022-07-09 08:50] LABS: Basophils Percent Auto 0.1 % (0-2); Eosinophils Absolute Auto 0.1 X10*3/uL (0.0-0.4); Eosinophils Percent Auto 0.7 % (0-4); Hematocrit 37.3 % (37.0-47.0); Hemoglobin 11.9 g/dl (12.0-16.0); Imm Gran Abs Auto 0.03 X10*3/uL (0.00-0.03); Imm Gran Pct Auto 0.3 % (0.0-0.4); Lymphocytes Absolute Auto 2.2 X10*3/uL (1.2-4.9); Lymphocytes Percent Auto 24.5 % (20-40); Mean Corpuscular HGB Conc 31.9 g/dl (31.0-35.0); Mean Corpuscular Hemoglobin 29.8 pg (27.0-33.0); Mean Corpuscular Volume 93.5 fL (80.0-98.0); Mean Platelet Volume 10.1 fL (9.4-12.3); Monocytes Absolute Auto 0.6 X10*3/uL (0.1-1.2); Monocytes Percent Auto 7.3 % (2-11); Neutrophils Absolute Auto 5.9 x10*3/uL (2.0-8.3); Neutrophils Percent Auto 67.1 % (45-73); Platelet Count 183 X10*3/uL (160-400); Red Blood Count 3.99 X10*6/uL (4.20-5.50); Red Cell Distribution Width 12.7 % (11.0-16.0); White Blood Count 8.8 X10*3/uL (4.8-10.8)
[2022-07-09 08:55] VITALS: BP 120/57; PULSE 59; RESP 16; TEMP 36.4; O2SAT 97; BMI 20.7
[2022-07-09 09:03] VITALS: BP 120/57; PULSE 59; RESP 16; TEMP 36.4; O2SAT 97
[2022-07-09 09:06] LABS: COVID-19 Test Negative (Negative); IDNOW Serial# 55D5AD1C
[2022-07-09 09:07] LABS: Alanine Aminotransferase 18 U/L (0-31); Albumin Level 3.9 g/dL (3.5-5.0); Alkaline Phosphatase 75 U/L (39-117); Anion Gap 14 (12-20); Aspartate Amino Transferase 17 U/L (5-31); Bilirubin Direct 0.2 mg/dL (0.0-0.5); Bilirubin Total 0.4 mg/dL (0.0-1.0); Blood Urea Nitrogen 29 mg/dL (9-16); Carbon Dioxide 24 mmol/L (22-29); Chloride 111 mmol/L (96-108); Creatinine Clr Calc Pharmacy 62.9; Estimated Glomerular Filt Rate > 60; Glucose Random 125 mg/dL (60-115); Lipase 26 U/L (8-78); Magnesium 1.9 mg/dL (1.6-2.6); Potassium 4.2 mmol/L (3.3-5.1); Sodium 145 mmol/L (135-145); Total Protein 7.1 g/dL (6.5-8.0)
--- OUTSIDE RECORDS SUMMARY | 2022-07-09 09:20 | XMS_ITS ---
:1950 Author Name Brittaney Galindo Care Team Providers Name Role Phone GalindoBrittaney sandoval Unavailable Unavailable PROBLEMS Type Condition ICD9-CM Code CEC69-RY Onset Condition SNOMED Code Code Dates Status Problem Type 1 diabetes E10.42 Active 7137 20322 mellitus with diabetic polyneuropathy ALLERGIES Substance Reaction Event Type Date Status Penicillin hives Drug Allergy Aug, Active ENCOUNTERS Encounter Location Date Diagnosis [address] January, [place] [address] [facility] [address] [place], [place] [address] January, [place] [address] [place] [address] Nov, [place] [address] [facility] [address] Aug, [place] [address] [facility] [place] [address] Aug, Type 1 di abetes mellitus [place] with diabetic [address] polyneuropathy E 10.42 ; Other hammer toe (s) (acquired), righ t foot M20.41 ; Other h ammer toe(s) (acquired ), left foot M20.42 ; Ti kevin unguium B35.1 an d Ingrowing nail L 60.0 [facility] [address] [place] [address] May, [place] [address] [facility] [place] [address] May, Type 1 di abetes mellitus [place] with diabetic [address] polyneuropathy E 10.42 ; Other hammer toe (s) (acquired), righ t foot M20.41 ; Other h ammer toe(s) (acquired ), left foot M20.42 ; Ti kevin unguium B35.1 an d Ingrowing nail L 60.[address] [facility] May, [place] [address] [facility] [place] [address] Mar, [place] [address] [facility] [place] [address] Aug, Type 1 di abetes mellitus [place] with diabetic [address] polyneuropathy E 10.42 and Tinea unguium B3 5.[address] Jul, [place] [address] [facility] [place] [address] Dec, Type 1 di abetes mellitus [place] with diabetic [address] polyneuropathy E 10.42 ; Other hammer toe (s) (acquired), righ t foot M20.41 ; Other h ammer toe(s) (acquired ), left foot M20.42 and Tinea unguium B35.1 [facility] [place] [address] May, Other ham rosendo toe(s) [place] (acquired), righ t foot [address] M20.41 ; Type 1 diabetes mellitus with di abetic polyneuropathy E 10.42 ; Other hammer toe (s) (acquired), left foot M20.42 and Tinea unguium B35.1 [facility] [address] Nov, Type 1 di abetes mellitus [place] with diabetic [address] polyneuropathy E 10.42 and Tinea unguium B3 5.1 [facility] [address] Feb, Ingrowing Nail 703.0 ; [place], [place] Diabetic - [address] IDDM/Neuropathy 250.61 ; Hammer toe 735.4 and Onychomycosis 11 0.[address] [facility] [address] [place] [address] Jul, Ingrowing Nail 703.0 ; [place], [place] Diabetic - [address] IDDM/Neuropathy 250.61 and Onychomycosi s 110.1 [facility] [address] January, Onychomyc osis 110.1 ; [place] Hammer toe 735.4 and [address] Diabetic - IDDM/Neuropathy 250.61 [facility] [address] Jul, Diabetic - [place] IDDM/Neuropathy 250.61 [address] and Onychomycosi s 110.[address] Dec, [place] [address] [facility] [address] Sep, Diabetic - [place] IDDM/Neuropathy 250.61 ; [address] Onychomycosis 11 0.1 ; Ingrowing Nail 7 03.0 and Hammer toe 735.4 [facility] [address] Jun, Diabetic - [place] IDDM/Neuropathy 250.61 ; [address] Onychomycosis 11 0.1 ; Ingrowing Nail 7 03.0 and Hammer toe 735.4 [facility] [address] Feb, [place] [address] [facility] [address] Dec, Diabetic - [place] IDDM/Neuropathy 250.61 ; [address] Keratoma 701.1 ; Other Disease of Nail 703.8 and Ingrowing Nail 7 03.0 [facility] [address] Sep, Diabetic [place] IDDM/Neuropathy 250.61 ; [address] Keratoma 701.1 ; Other Disease of Nail 703.8 and Contusion of toe 924.3 UNKNOWN Sep, [facility] [address] [place] [address] Jun, Diabetic - [place] IDDM/Neuropathy 250.61 ; [address] Keratoma 701.1 ; Other Disease of Nail 703.8 and Xerosis 706.8 IMMUNIZATIONS Vaccine Route Administration Date Status Pneumococcal Unknown Aug 07, 2016 Administered SOCIAL HISTORY Qualifiers Date Never Smoker REASON FOR REFERRAL FUNCTIONAL STATUS PLAN OF CARE Activity Details Future/Pending Procedure 86786-YOKSVZU NAIL, 6 OR MOR E Future/Pending Procedure 23690-Pquadixz Plate Future/Pending Procedure 71022-RHBU SKIN LESIONS, 2 T O 4 Future/Pending Procedure 97629-IHIHZON NAIL, 6 OR MOR E Future/Pending Procedure 63479-Rayxvxoi Plate Future/Pending Procedure 84066-QMUV SKIN LESIONS, 2 T O 4 Future/Pending Procedure 55861-FJIEEZW NAIL, 6 OR MOR E Future/Pending Procedure 77570-VFNN SKIN LESIONS, 2 T O 4 Future/Pending Procedure 77334-EZMTDBS NAIL, 6 OR MOR E Future/Pending Procedure 64764-JJKZ SKIN LESIONS, 2 T O 4 Future/Pending Procedure 12329-ZLRLWQQ NAIL, 6 OR MOR E Future/Pending Procedure 22756-UDCV SKIN LESIONS, 2 T O 4 Future/Pending Procedure 07708-ZLPXKLC NAIL, 6 OR MOR E Future/Pending Procedure 14943-WABX SKIN LESIONS, 2 T O 4 Future/Pending Procedure 10054-ANRTOVD NAIL, 6 OR MOR E Future/Pending Procedure 79352-Zzxcvicd Plate Future/Pending Procedure 08356-JEZG SKIN LESIONS, 2 T O 4 Future/Pending Procedure 06497-UMUJQDV NAIL, 6 OR MOR E Future/Pending Procedure 65400-Bpzeuajb Plate Future/Pending Procedure 23423-PCRU SKIN LESIONS, 2 T O 4 Future/Pending Procedure 01509-QUDMFJM NAIL, 6 OR MOR E Future/Pending Procedure 89631-KGFD SKIN LESIONS, 2 T O 4 Future/Pending Procedure 87346-JAABYIP NAIL, 6 OR MOR E Future/Pending Procedure 04723-NLNG SKIN LESIONS, 2 T O 4 Future/Pending Procedure 66038-PYJIUVX NAIL, 6 OR MOR E Future/Pending Procedure 50774-Ufogzmxc Plate Future/Pending Procedure 44505-MEXG SKIN LESIONS, 2 T O 4 Future/Pending Procedure 14686-AJZXARF NAIL, 6 OR MOR E Future/Pending Procedure 05643-Nalzrxjs Plate Future/Pending Procedure 11556-YAFO SKIN LESIONS, 2 T O 4 Future/Pending Procedure 94286-Wkoapkmd Plate Future/Pending Procedure 04465-RKBB SKIN LESIONS, 2 T O 4 Future/Pending Procedure C6783-QZJZKQQZ DYSTROPHIC NA ILS ANY # Future/Pending Procedure 60598-CFPS SKIN LESIONS, 2 T O 4 Future/Pending Procedure Y3337-LKEASVGA DYSTROPHIC NA ILS ANY # Future/Pending Procedure 37336-BJGG SKIN LESIONS, 2 T O 4 Future/Pending Procedure N8869-XBLSQTDF DYSTROPHIC NA ILS ANY # VITAL SIGNS Height 5 ft 7 in in 2020-09-01 Weight 137 lbs 2020-09-01 BMI 21.45 kg/m2 2020-09-01 Heart Rate 70 /min 2017-01-11 Temperature 96.8 degrees Fahrenheit 2020-09-01 Blood pressure systolic 126 mm Hg 2017-08-20 Blood pressure diastolic 72 mm Hg 2017-08-20 MEDICATIONS Medication Instructions Dosage Frequency Start End Duration Statu s Date Date Extra Depth as directed Active Orthopedic Shoes (1 Pair) with Customized Heat Molded Multidensity Innersoles (3 Pair) NovoLIN 70/30 Not-Takin g Pravastatin Active Sodium 20mg Lumigan Active Combigan 0.2-0.5 Ophthalmic 1 drop into 12h Active % Twice a day affected eye PROCEDURES Procedure Date Ordered Result Body Site PT VISIT DOC USING CCHIT CER Sep 30, 2012 TRIM SKIN LESIONS, 2 TO 4 Jun 22, 2011 LOW EXTEMITY NEUR EXAM DOCUM Jun 17, 2012 TRIM SKIN LESIONS, 2 TO 4 Aug 07, 2013 TRIM SKIN LESIONS, TO 4 January 03, 2012 PT VISIT DOC USING CCHIT CER Jun 17, 2012 Avulsion Plate March 08, 2015 EVAL ON FOOT DOCUMENTED February 12, 2014 Avulsion Plate Jul 29, 2014 LOW EXTEMITY NEUR EXAM DOCUM March 08, 2015 TRIM SKIN LESIONS, 2 TO 4 November 18, 2015 EVAL ON FOOT DOCUMENTED Sep 30, 2012 DEBRIDE NAIL, OR MORE January 11, 2017 PT INELIG LOWER EXTREM NEURO Sep 30, 2012 DEBRIDE NAIL, OR MORE Aug 20, 2017 TRIM SKIN LESIONS, 2 TO 4 Jun 17, 2012 EVAL ON FOOT DOCUMENTED March 08, 2015 DEBRIDE NAIL, 6 OR MORE Jun 08, 2016 TRIM SKIN LESIONS, 2 TO 4 February 12, 2014 FOOT EXAM PERFORMED February 12, 2014 TRIMMING DYSTROPHIC NAILS ANY # Jun 22, 2011 DEBRIDE NAIL, 6 OR MORE Jun 17, 2012 DEBRIDE NAIL, 6 OR MORE Sep 01, 2020 Avulsion Plate Jun 17, 2012 TRIM SKIN LESIONS, 2 TO 4 January 11, 2017 Avulsion Plate Sep 01, 2020 LOW EXTEMITY NEUR EXAM DOCUM Jul 29, 2014 LOW EXTEMITY NEUR EXAM DOCUM February 12, 2014 TRIM SKIN LESIONS, 2 TO 4 Sep 01, 2020 TRIM SKIN LESIONS, 2 TO 4 Jun 03, 2020 TRIM SKIN LESIONS, 2 TO 4 Jun 08, 2016 Avulsion Plate Sep 30, 2012 DEBRIDE NAIL, 6 OR MORE Sep 30, 2012 LOW EXTEMITY NEUR EXAM DOCUM Aug 07, 2013 DEBRIDE NAIL, 6 OR MORE March 08, 2015 DEBRIDE NAIL, 6 OR MORE Jul 29, 2014 Avulsion Plate Jun 03, 2020 Avulsion Plate January 03, 2012 TRIM SKIN LESIONS, 2 TO 4 Oct 05, 2011 TRIM SKIN LESIONS, 2 TO 4 Sep 30, 2012 FOOT EXAM PERFORMED Jun 17, 2012 EVAL ON FOOT DOCUMENTED Jun 17, 2012 FOOT EXAM PERFORMED March 08, 2015 TRIMMING DYSTROPHIC NAILS ANY # January 03, 2012 DEBRIDE NAIL, 6 OR MORE February 12, 2014 DEBRIDE NAIL, 6 OR MORE Aug 07, 2013 DEBRIDE NAIL, 6 OR MORE Jun 03, 2020 TRIM SKIN LESIONS, 2 TO 4 Jul 29, 2014 TRIM SKIN LESIONS, 2 TO 4 March 08, 2015 DEBRIDE NAIL, 6 OR MORE November 18, 2015 TRIMMING DYSTROPHIC NAILS ANY # Oct 05, 2011 TRIM SKIN LESIONS, 2 TO 4 Aug 20, 2017 RESULTS No Results REASON FOR VISIT Insurance Providers [facility] Health Member Patient Patient Patient Patient Patient Subscriber Subscriber Subscriber Group Insurance Plan Plan Plan Plan ID Relationship Address Phone Name Date of ID Name Date of No Type Insurance Insurance Insurance Coverage to Subscriber Address Phone Name Dates Medicare National [id number] Medicare self Yessy 1950 [id number] Govt [address] [facility] [address] [place] [address] [place] [phone] United self Yessy [id number] Healthcare [id number] [facility] [place] [id number] [id number] [place] [phone] MEDICAL (GENERAL) HISTORY Type Description Date Medical History Cholesterol Medical History stroke Medical History vascular phlebitis(clots) Medical History poor circulation Medical History nerve disease Medical History measles Medical History glaucoma Medical History diabetic Medical History chicken pox Medical History back, hip, knee pain Medical History Arthritis Surgical History section Surgical History tonsillectomy 1960 Surgical History Right eye Surgery 07/19/2015 [facility] 07/19/2015 [place] [facility] [place] and be came 02/2017 infected, DX celuitis in deep vein, discharged after 3 days Hospital[place] [facility] [place] cl[place] in the left jasvir t 04/06/20-04/09/20 Hospitalization History [facility], [address] 04/2020 [facility] [place] [facility] [place] in the left jasvir t 05/2020
--- NOTE | 2022-07-09 09:31 | PC.NURSE ---
pt. claude, oreitned to person only. VS WNL. complains of abdominal pain and constipation. provider desimpacted. gave her oil mineral enema and straight cathed. urine sample sent
[2022-07-09 10:00] LABS: Appearance Urine Cloudy; Color Urine Yellow; Glucose Urine UA Negative (Negative); Leukocyte Esterase Urine Large (3+) (Negative); Nitrite Urine Negative (Negative); UMIC TRIGGER UACC YES; Urine Blood Trace (Negative); Urine Ketones Negative (Negative); Urine Protein 30 (1+) mg/dL (Neg-Trace)
[2022-07-09 10:18] LABS: Bacteria Urine 2+ (None Seen); Hyaline Casts Urine 0-2 /LPF (0-2); Squamous Epithelial Cell Urine 0-2 /HPF (0-2); UACC Culture Trigger YES; WBC Urine >50 /HPF (0-5)
[2022-07-09] MEDS: Mineral OiL enema 133 ML ENEMA PR (10:28)
[2022-07-09 10:45] VITALS: BP 115/57; PULSE 57; RESP 18; O2SAT 98
--- NOTE | 2022-07-09 10:48 | PC.NURSE ---
pt resting comfortably. reports no pain. VS WNL. gave her cerfuroxime 250mg
--- NOTE | 2022-07-09 11:17 | PC.NURSE ---
Pt assisted onto bedside commode, unable to have bowel movememt
[2022-07-09] MEDS: polyethylene glycoL 3350 17 GM POWD.PACK PO (12:20)
[2022-07-09] MEDS: Docusate Sodium 100 MG CAPSULE 200 MG PO (12:20)
--- NOTE | 2022-07-09 12:25 | PC.NURSE ---
pt. resting comfortably. gave her stool softener and laxatives. she is ready to be discharged. waiting on ambulance to transport her.
== END 2022-07-09 13:08 | disposition skilled nursing facility (03) ==
PROVIDERS: Physician Assistant; Emergency Provider Emergency Medicine
DX: N39.0 Urinary tract infection, site not specified (principal); K59.00 Constipation, unspecified; Z20.822 Contact with and (suspected) exposure to COVID-19; Z79.899 Other long term (current) drug therapy
CPT/HCPCS: 51702; 74176; 80048; 80076; 81001; 81003; 83690; 83735; 85025; 87086; 87088; 87186; 87635; 99284

== ENCOUNTER 2022-08-31 08:32 | Emergency (ER) | payer MEDICARE, MEDICAID, SELFPAY ==
[2022-08-31] VITALS (7 sets, daily range): BP systolic 124–168; BP diastolic 51–89; PULSE 47–58; RESP 12–18; TEMP 36.2–36.7; O2SAT 97–100; BMI 24.9
--- NOTE | ~2022-08-31 | XR_ITS ---
EXAMINATION: XR CHEST CLINICAL INFORMATION: Syncope COMPARISON: 06/01/2022. TECHNIQUE: 2 views of the chest were obtained. FINDINGS: No new airspace consolidation or pleural effusion. Pulmonary vascularity appears to be stable. Minimal linear atelectasis toward the left base. Thoracic spondylitic change observed. XR/XR chest 2V IMPRESSION: No new focal infiltrates or effusions. No significant change since previous evaluation. Minimal linear atelectasis at the left base.
--- NOTE | ~2022-08-31 | MR_ITS ---
EXAMINATION: MR BRAIN WITHOUT CONTRAST CLINICAL INFORMATION: Dizziness. Question syncope. COMPARISON: Head CT 08/31/2022. TECHNIQUE: Multiplanar, multisequence imaging of the brain was performed without intravenous contrast. FINDINGS: There is no acute infarction, mass, hemorrhage, or extra-axial collection. The ventricles, sulci, and basilar cisterns are normal in size and configuration. Moderate patchy foci of T2/FLAIR hyperintensity are seen throughout the cerebral white matter, most typical of chronic microangiopathy. The flow voids of the major intracranial arteries appear intact. The bones and extracranial soft tissues are unremarkable. There is a small amount of fluid in the right mastoid. The orbital contents appear normal. MR/MR head/brain wo con IMPRESSION: No acute infarct, mass lesion, intracranial hemorrhage, or evidence of hydrocephalus. Background changes of moderate chronic microangiopathy.
--- NOTE | ~2022-08-31 | XR_ITS ---
EXAMINATION: XR ABDOMEN KUB CLINICAL INDICATION: Pre-MRI evaluation for implantable devices COMPARISON: None TECHNIQUE: AP view of the abdomen. FINDINGS: No metallic foreign bodies identified. Moderate to large amount of formed stool throughout the colon. No dilated bowel loops. No bowel wall thickening or gross large volume free air on this limited supine exam. No acute osseous abnormality. XR/XR KUB IMPRESSION: 1. No metallic foreign bodies identified. 2. Moderate to large amount of formed stool throughout the colon.
--- NOTE | ~2022-08-31 | CT_ITS ---
EXAMINATION: CT HEAD WITHOUT CONTRAST CLINICAL INFORMATION: Syncope COMPARISON: May 2022. TECHNIQUE: Contiguous axial imaging was performed from the skull base to vertex without intravenous administration of contrast. This CT examination was performed using dose optimization techniques as appropriate, variously including the following: *Automated exposure control *Adjustment of mA and/or kV according to patient size (this includes techniques or standardized protocols for targeted exams where dose is matched to indication/reason for exam; i.e. extremities or head) *Use of iterative reconstruction technique DLP: 630 mGy-cm FINDINGS: No evidence for hemorrhage or mass effect. Atrophy noted. Hypodense changes are seen in periventricular and subcortical white matter consistent with chronic small vessel ischemic disease. No appreciable acute territorial infarct. [place]/white matter differentiation is maintained. The cisterns are unremarkable. No intraventricular blood. No extra-axial collections. Eccentric opacification of inferior right mastoid air cell. No skull base abnormality. Calvarium intact. CT/CT head/brain wo IV con IMPRESSION: No acute process. Atrophy with change of chronic small vessel ischemic disease. Minimal right mastoiditis.
--- NOTE | 2022-08-31 08:53 | ECG_ITS ---
Test Reason : DIZZINESS Blood Pressure : / mmHG Vent. Rate : 057 BPM Atrial Rate : 057 BPM P-R Int : 148 ms QRS Dur : 078 ms QT Int : 422 ms P-R-T Axes : 050 056 051 degrees QTc Int : 410 ms Sinus bradycardia Otherwise normal ECG When compared with ECG of 01-JUN-2022 08:56, No significant change was found Referred By: Barbra Cherry Electronically Signed By:SILVIO CARREON
--- NOTE | 2022-08-31 08:55 | ED.DIZZY ---
HPI - Dizziness General Chief Complaint: Dizziness <Barbra Jimenez ROLAND Cherry - Last Filed: 08/31/22 19:35> Stated Complaint: DIZZY X'S 1 HOUR FROM SNF PER EMS <Barbracassi Cherry CNP - Last Filed: 08/31/22 19:35> Time Seen by Provider: 08/31/22 08:43 <Barbra Cherry CNP - Last Filed: 08/31/22 19:35> Source: patient and EMS <Barbra Jimenez ROLAND Cherry - Last Filed: 08/31/22 19:35> Mode of arrival: EMS <Barbra Jimenez ROLAND Cherry - Last Filed: 08/31/22 19:35> Limitations: no limitations <Barbra Jimenez ROLAND Cherry - Last Filed: 08/31/22 19:35> History of Present Illness HPI Narrative: Patient is a 72-year-old female who presents to the emergency department via EMS from [facility]. Report received that patient had ambulated back from the restroom when she was reporting sudden onset of dizziness at 07:30, and she was slow to respond to staff members. No focal neurological deficits upon EMS examination. When asking the patient why she is here she states she does not recall what happened. When asked if she was feeling dizzy after walking from the bathroom she does state yes. Additionally upon review of systems she does state that she was experiencing chest pain prior to arrival to the hospital, but denies chest pain at this time. When asked she denies any fall. She appears drowsy but is responding to questions and following commands appropriately. <Barbracassi Cherry CNP - Last Filed: 08/31/22 19:35> Related Data Home Medications: Home Medications Medication Instructions Recorded Confirmed acetaminophen 325 mg tablet 650 mg PO Q6H PRN Dehydration 02/26/22 04/05/22 apixaban 5 mg tablet 5 mg PO BID 02/26/22 04/05/22 brimonidine 0.2 % eye drops 1 drp ophthalmic (eye) DAILY 02/26/22 04/05/22 duloxetine 30 mg capsule,delayed 30 mg PO BEDTIME 02/26/22 04/05/22 release olanzapine 10 mg tablet 10 mg PO BEDTIME 02/26/22 04/05/22 simvastatin 10 mg tablet 10 mg PO BEDTIME 02/26/22 04/05/22 timolol maleate 0.5 % eye drops 1 drp ophthalmic (eye) DAILY 02/26/22 04/05/22 topiramate 25 mg tablet 25 mg PO BID 02/26/22 04/05/22 trazodone 50 mg tablet 25 mg BEDTIME 02/26/22 04/05/22 insulin glargine 100 unit/mL 17 unit subcut BEDTIME 04/05/22 04/05/22 subcutaneous solution (Lantus U-100 Insulin) melatonin 5 mg tablet 5 mg PO BEDTIME PRN Insomnia 04/05/22 04/05/22 Previous Rx's Medication Instructions Recorded insulin lispro 100 unit/mL See Protocol subcut QIDACHS #10 mL 03/03/22 subcutaneous solution (Humalog U-100 Insulin) sitagliptin phosphate 100 mg 100 mg PO DAILY #30 tabs 03/03/22 tablet (Januvia) cefuroxime axetil 250 mg tablet 250 mg PO BID 10 days #20 tabs 04/05/22 cefuroxime axetil 500 mg tablet 500 mg PO BID #20 tabs 04/05/22 cefuroxime axetil 250 mg tablet 250 mg PO BID 7 days #14 tabs 06/01/22 bisacodyl 10 mg rectal suppository 10 mg ME DAILY PRN constipation 07/09/22 (Dulcolax (bisacodyl)) #12 ea docusate sodium 100 mg capsule 100 mg PO BID #30 caps 07/09/22 (Colace) polyethylene glycol 3350 17 17 g PO DAILY #119 grams 07/09/22 gram/dose oral powder (Miralax) sennosides 8.6 mg capsule (senna) 8.6 mg PO BEDTIME #14 caps 07/09/22 <Barbra Cherry CNP - Last Filed: 08/31/22 19:35> Allergies/Adverse Reactions: Allergies Allergy/AdvReac Type Severity Reaction Status Date / Time Penicillins Allergy Hives Verified 06/01/22 08:32 <Barbra Cherry CNP - Last Filed: 08/31/22 19:35> Review of Systems Review of Systems: Constitutional:. No fever. No chills. ENT: No sore throat. No rhinorrhea. No nasal congestion. No sore throat. Skin: No rash. No itching. Cardiovascular: Positive chest pain. No palpitations. Respiratory: No shortness of breath. No cough. No sputum production. Gastrointestinal: No nausea. No vomiting. No diarrhea. No abdominal pain. Genitourinary: No burning micturition. No urinary frequency. Neurologic: No headache. Positive dizziness. Question of pre-syncope/ syncope. No unilateral weakness. No ataxia. No numbness. No tingling. Musculoskeletal: No back pain. No joint pain. <Barbra Cherry CNP - Last Filed: 08/31/22 19:35> Yes all other systems are reviewed and are negative <Barbra Cherry CNP - Last Filed: 08/31/22 19:35> [facility] Past Medical History Attestation statement: The following information was validated with the patient. <Barbra Cherry CNP - Last Filed: 08/31/22 19:35> Source: old records reviewed <Barbra Cherry CNP - Last Filed: 08/31/22 19:35> Medical History: Medical History Coronary artery disease DVT (deep venous thrombosis) Glaucoma Neuropathy Non-insulin dependent diabetes mellitus Pulmonary embolism Vascular dementia <Barbra Cherry CNP - Last Filed: 08/31/22 19:35> Social History Social History: Social History Household Members: Other Household Members Other:: Rest Home Housing: Skilled Nursing Do you presently have visiting nurse or other home services: Yes Unable to assess alcohol history related to: Unable to respond Alcohol intake: never Patient Tobacco Use Status: Former Tobacco user Smoked in Last 30 Days: No Use of substances other than those prescribed or required for medical reasons: No Advance Directives: Yes Advance Directives Information Provided: Yes Advance Directives on File: No service: No <Barbra Cherry CNP - Last Filed: 08/31/22 19:35> Physical Exam Vital Signs: Vital Signs: Last Vital Signs Temp 97.8 F 08/31/22 21:44 Pulse 55 08/31/22 21:44 Resp 16 08/31/22 21:44 BP 158/89 H 08/31/22 21:44 Pulse Ox 97 08/31/22 21:44 O2 Del Method 08/31/22 21:44 BMI result Body Mass Index 24.9 <Barbra Cherry CNP - Last Filed: 08/31/22 19:35> Vital Signs: Last Vital Signs Temp 97.8 F 08/31/22 21:44 Pulse 55 08/31/22 21:44 Resp 16 08/31/22 21:44 BP 158/89 H 08/31/22 21:44 Pulse Ox 97 08/31/22 21:44 O2 Del Method 08/31/22 21:44 BMI result Body Mass Index 24.9 <Bernard Rodriguez MD - Last Filed: 08/31/22 21:30> Vital Signs: Last Vital Signs Temp 97.8 F 08/31/22 21:44 Pulse 55 08/31/22 21:44 Resp 16 08/31/22 21:44 BP 158/89 H 08/31/22 21:44 Pulse Ox 97 08/31/22 21:44 O2 Del Method 08/31/22 21:44 BMI result Body Mass Index 24.9 <DARRIUS Guzman - Last Filed: 09/04/22 14:58> Appearance: Alert.?Oriented to person and place. No acute distress.?Normal affect. Eyes: Pupils equal, round and reactive to light.? EOMI. ENT: Pharynx normal.?? Neck: Normal inspection.? Neck supple.?? CVS: Heart sounds normal. Normal heart rate and rhythm.? Pulses normal.?? Respiratory: No respiratory distress.? Lung sounds clear to auscultation bilaterally?? Abdomen: Soft and non-tender. Normoactive bowel sounds. ?? Skin: Skin warm and dry.? Normal skin color.? Extremities: 1+ bilateral lower extremity edema. Neuro: No focal neurological deficit observed, CN II-XII intact, normal sensory observed, normal coordination observed. Level of consciousness: Appropriate for age. Motor strength: right upper extremity 3 /5, left upper extremity 3 /5, right lower extremity 3 /5, left lower extremity 3 /5.?Speech: Normal <Barbra Cherry CNP - Last Filed: 08/31/22 19:35> NIH Stroke Scale Time: 08:45 <Barbra Barbara Barcrose, DRY ROOM OPERATOR - Last Filed: 08/31/22 19:35> Level of Consciousness: Alert <Barbra Barbara Barcrose, DRY ROOM OPERATOR - Last Filed: 08/31/22 19:35> Level of Consciousness Questions: Answers both questions correctly <Barbra Barbara Jo Ann, DRY ROOM OPERATOR - Last Filed: 08/31/22 19:35> Level of Consciousness Commands: Performs both tasks correctly <Barbra Barbara Barcrose, DRY ROOM OPERATOR - Last Filed: 08/31/22 19:35> Best Gaze: Normal <Barbra Barbara Barcome, DRY ROOM OPERATOR - Last Filed: 08/31/22 19:35> Visual: No visual loss <Barbra Barbara Barcome, DRY ROOM OPERATOR - Last Filed: 08/31/22 19:35> Facial Palsy: Normal <Barbra Barbara Barcrose, DRY ROOM OPERATOR - Last Filed: 08/31/22 19:35> Motor Arm (Right): No drift <Barbra Barbara Barcome, DRY ROOM OPERATOR - Last Filed: 08/31/22 19:35> Motor Arm (Left): No drift <Barbra Barbara Barcome, DRY ROOM OPERATOR - Last Filed: 08/31/22 19:35> Motor Leg (Right): No drift <Barbra Barbara Barcome, DRY ROOM OPERATOR - Last Filed: 08/31/22 19:35> Motor Leg (Left): No drift <Barbra Barbara Barcrose, DRY ROOM OPERATOR - Last Filed: 08/31/22 19:35> Limb Ataxia: Absent <Barbra Barbara Barcrose, DRY ROOM OPERATOR - Last Filed: 08/31/22 19:35> Sensory: Normal <Barbra Barbara Barcome, DRY ROOM OPERATOR - Last Filed: 08/31/22 19:35> Best Language: No aphasia <Barbra Barbara Barcrose, DRY ROOM OPERATOR - Last Filed: 08/31/22 19:35> Dysarthia: Normal <Barbra Barbara Barcrose, DRY ROOM OPERATOR - Last Filed: 08/31/22 19:35> Extinction and Inattention: No abnormality <Barbra Barbara Barcrose, DRY ROOM OPERATOR - Last Filed: 08/31/22 19:35> Score: 0 <Barbra Barbara Barcome, DRY ROOM OPERATOR - Last Filed: 08/31/22 19:35> 0 <Bernard Rodriguez MD - Last Filed: 08/31/22 21:30> 0 <DARRIUS Guzman - Last Filed: 09/04/22 14:58> Course Reevaluation(s) Reevaluation #1: CBC unremarkable. CMP overall unremarkable, BUN is elevated at 23 likely due to dehydration and also appears consistent with her baseline. Troponin <3.5, EKG revealing a sinus tachycardia without acute ischemic abnormalities, low suspicion for ACS. Chest x-ray without acute cardiopulmonary findings. CT of the head without acute intracranial process, atrophy chronic small-vessel ischemic disease noted. will obtain MRI the brain to exclude posterior circulation abnormality. Urinalysis reveals pyuria and 4+ urine bacteria, no squamous epithelial cells, concerning for potential urinary tract infection, patient received ceftriaxone emergency department, review of prior urine cultures have grown Enterococcus Faecialis in addition to E coli; susceptible to ceftriaxone. <Barbra Cherry CNP - Last Filed: 08/31/22 19:35> Time: 11:01 <Barbra Cherry CNP - Last Filed: 08/31/22 19:35> Reevaluation #2: Received phone call from MRI patient is unable to provide a not information and unable to obtain history from a new family members. Advised with diet at she will require KUB to evaluate for implant devices prior to MRI. Patient otherwise has remained alert and verbal. Patient signed out to Aldo Rodriguez ED attending pending results of MRI. <Barbra Cherry CNP - Last Filed: 08/31/22 19:35> Time: 18:27 <Barbra Cherry CNP - Last Filed: 08/31/22 19:35> Reevaluation #3: 09/04/22-- patient's urine culture grew E coli pansensitive, called and spoke to John and fax results over <DARRIUS Guzman - Last Filed: 09/04/22 14:58> Time: 14:57 <DARRIUS Guzman - Last Filed: 09/04/22 14:58> Medications Administered Discontinued Medications Generic Name Dose Route Start Last Admin Trade Name Freq PRN Reason Stop Dose Admin Ceftriaxone Sodium 1 gm/ 50 mls @ 100 mls/hr 08/31/22 11:08 08/31/22 16:56 Sodium Chloride IV 08/31/22 11:37 Infused ONCE ONE Infusion <Barbra Cherry CNP - Last Filed: 08/31/22 19:35> Medications Administered Discontinued Medications Generic Name Dose Route Start Last Admin Trade Name Freq PRN Reason Stop Dose Admin Ceftriaxone Sodium 1 gm/ 50 mls @ 100 mls/hr 08/31/22 11:08 08/31/22 16:56 Sodium Chloride IV 08/31/22 11:37 Infused ONCE ONE Infusion <Bernard Rodriguez MD - Last Filed: 08/31/22 21:30> Medications Administered Discontinued Medications Generic Name Dose Route Start Last Admin Trade Name Freq PRN Reason Stop Dose Admin Ceftriaxone Sodium 1 gm/ 50 mls @ 100 mls/hr 08/31/22 11:08 08/31/22 16:56 Sodium Chloride IV 08/31/22 11:37 Infused ONCE ONE Infusion <DARRIUS Guzman - Last Filed: 09/04/22 14:58> Medical Decision Making Medical Decision Making [facility] Narrative: Patient is a 72-year-old female with a past medical history of CAD, DVT/PE on Eliquis, glaucoma, neuropathy, diabetes, vascular dementia presenting to emergency department for evaluation of dizziness and decreased responsiveness episode. At the time of examination she is noted to be slow to respond to questions, but does appear to be answered questions appropriately and following commands, NIH Stroke score 0. There are no focal neurological deficits, she is able to identify objects such as pen and eyeglasses. She is currently without any complaints. However given age, and reported dizziness of unclear etiology will obtain CT of the head, if unremarkable she may require MRI imaging for evaluation of posterior circulation abnormality. Will obtain CBC to evaluate for leukocytosis/ anemia, CMP to evaluate for abnormal electrolytes /abnormal renal function/ abnormal hepatic function, EKG and troponin to evaluate for ischemia/ACS. Chest x-ray to evaluate for consolidation/ infiltrate/ mass/ pulmonary congestion and Urinalysis. In addition will obtain viral studies, and orthostatic vital signs. <Barbra Cherry CNP - Last Filed: 08/31/22 19:35> Lab Data [facility] Lab Attestation statement: I reviewed the patient's lab results. <Barbra Cherry CNP - Last Filed: 08/31/22 19:35> Result Diagrams: : 08/31/22 09:43 08/31/22 09:43 <Barbra Cherry CNP - Last Filed: 08/31/22 19:35> Labs: Lab Results 08/31/22 08/31/22 08/31/22 Range/Units 09:31 09:31 09:43 WBC 6.9 (4.8-10.8) X10*3/uL RBC 4.32 (4.20-5.50) X10*6/uL Hgb 13.0 (12.0-16.0) g/dl Hct 39.8 (37.0-47.0) % MCV 92.1 (80.0-98.0) fL MCH 30.1 (27.0-33.0) pg MCHC 32.7 (31.0-35.0) g/dl RDW 12.8 (11.0-16.0) % Plt Count 177 (160-400) X10*3/uL MPV 10.0 (9.4-12.3) fL Immature Gran % (Auto) 0.4 (0.0-0.4) % Neut % (Auto) 61.7 (45-73) % Lymph % (Auto) 28.9 (20-40) % [place] % (Auto) 7.9 (2-11) % Eos % (Auto) 1.0 (0-4) % Baso % (Auto) 0.1 (0-2) % Lymph # (Auto) 2.0 (1.2-4.9) X10*3/uL [place] # (Auto) 0.5 (0.1-1.2) X10*3/uL Eos # (Auto) 0.1 (0.0-0.4) X10*3/uL Baso # (Auto) 0.0 (0.0-0.2) X10*3/uL Abs Immat Gran (auto) 0.03 (0.00-0.03) X10*3/uL Absolute Neuts (auto) 4.2 (2.0-8.3) x10*3/uL Absolute Nucleated RBC 0.000 (0.0-0.012) X10*3/uL Nucleated RBC % (auto) 0.0 (0.0-0.2) /100WBC Sodium (135-145) mmol/L Potassium (3.3-5.1) mmol/L Chloride (96-108) mmol/L Carbon Dioxide (22-29) mmol/L Anion Gap (12-20) BUN (9-16) mg/dL Creatinine (0.5-1.4) mg/dL Estim Creat Clear Calc Estimated GFR Random Glucose (60-115) mg/dL Calcium (8.4-10.2) mg/dL Magnesium (1.6-2.6) mg/dL Total Bilirubin (0.0-1.0) mg/dL AST (5-31) U/L ALT (0-31) U/L Alkaline Phosphatase (39-117) U/L Troponin I High Sens (<3.5-17.0) ng/L B-Natriuretic Peptide (<100) pg/mL Total Protein (6.5-8.0) g/dL Albumin (3.5-5.0) g/dL Urine Color Urine Appearance Urine pH (5.0-9.0) Ur Specific [place] (1.005-1.025) Urine Protein (Neg-Trace) mg/dL Urine Glucose (UA) (Negative) mg/dL Urine Ketones (Negative) mg/dL Urine Blood (Negative) Urine Nitrite (Negative) Ur Leukocyte Esterase (Negative) Urine RBC (0-2) /HPF Urine WBC (0-5) /HPF Ur Squamous Epith Cells (0-2) /HPF Urine Bacteria (None Seen) Hyaline Casts (0-2) /LPF COVID-19 (GONZALEZ) Negative (Negative) COVID-19 Clin Com See Note Influenza Type A (MARIE) Negative (Negative) Influenza Type B (MARIE) Negative (Negative) Influenza A & B Note See Note 08/31/22 08/31/22 08/31/22 Range/Units 09:43 09:43 09:43 WBC (4.8-10.8) X10*3/uL RBC (4.20-5.50) X10*6/uL Hgb (12.0-16.0) g/dl Hct (37.0-47.0) % MCV (80.0-98.0) fL MCH (27.0-33.0) pg MCHC (31.0-35.0) g/dl RDW (11.0-16.0) % Plt Count (160-400) X10*3/uL MPV (9.4-12.3) fL Immature Gran % (Auto) (0.0-0.4) % Neut % (Auto) (45-73) % Lymph % (Auto) (20-40) % [place] % (Auto) (2-11) % Eos % (Auto) (0-4) % Baso % (Auto) (0-2) % Lymph # (Auto) (1.2-4.9) X10*3/uL [place] # (Auto) (0.1-1.2) X10*3/uL Eos # (Auto) (0.0-0.4) X10*3/uL Baso # (Auto) (0.0-0.2) X10*3/uL Abs Immat Gran (auto) (0.00-0.03) X10*3/uL Absolute Neuts (auto) (2.0-8.3) x10*3/uL Absolute Nucleated RBC (0.0-0.012) X10*3/uL Nucleated RBC % (auto) (0.0-0.2) /100WBC Sodium 145 (135-145) mmol/L Potassium 4.2 (3.3-5.1) mmol/L Chloride 113 H (96-108) mmol/L Carbon Dioxide 26 (22-29) mmol/L Anion Gap 10 L (12-20) BUN 23 H (9-16) mg/dL Creatinine 0.81 (0.5-1.4) mg/dL Estim Creat Clear Calc 58.6 Estimated GFR > 60 Random Glucose 167 H (60-115) mg/dL Calcium 9.5 (8.4-10.2) mg/dL Magnesium 2.0 (1.6-2.6) mg/dL Total Bilirubin 0.4 (0.0-1.0) mg/dL AST 16 (5-31) U/L ALT 20 (0-31) U/L Alkaline Phosphatase 83 (39-117) U/L Troponin I High Sens < 3.5 (<3.5-17.0) ng/L B-Natriuretic Peptide < 10 (<100) pg/mL Total Protein 7.9 (6.5-8.0) g/dL Albumin 4.4 (3.5-5.0) g/dL Urine Color Urine Appearance Urine pH (5.0-9.0) Ur Specific [place] (1.005-1.025) Urine Protein (Neg-Trace) mg/dL Urine Glucose (UA) (Negative) mg/dL Urine Ketones (Negative) mg/dL Urine Blood (Negative) Urine Nitrite (Negative) Ur Leukocyte Esterase (Negative) Urine RBC (0-2) /HPF Urine WBC (0-5) /HPF Ur Squamous Epith Cells (0-2) /HPF Urine Bacteria (None Seen) Hyaline Casts (0-2) /LPF COVID-19 (GONZALEZ) (Negative) COVID-19 Clin Com Influenza Type A (MARIE) (Negative) Influenza Type B (MARIE) (Negative) Influenza A & B Note 08/31/22 Range/Units 10:25 WBC (4.8-10.8) X10*3/uL RBC (4.20-5.50) X10*6/uL Hgb (12.0-16.0) g/dl Hct (37.0-47.0) % MCV (80.0-98.0) fL MCH (27.0-33.0) pg MCHC (31.0-35.0) g/dl RDW (11.0-16.0) % Plt Count (160-400) X10*3/uL MPV (9.4-12.3) fL Immature Gran % (Auto) (0.0-0.4) % Neut % (Auto) (45-73) % Lymph % (Auto) (20-40) % [place] % (Auto) (2-11) % Eos % (Auto) (0-4) % Baso % (Auto) (0-2) % Lymph # (Auto) (1.2-4.9) X10*3/uL [place] # (Auto) (0.1-1.2) X10*3/uL Eos # (Auto) (0.0-0.4) X10*3/uL Baso # (Auto) (0.0-0.2) X10*3/uL Abs Immat Gran (auto) (0.00-0.03) X10*3/uL Absolute Neuts (auto) (2.0-8.3) x10*3/uL Absolute Nucleated RBC (0.0-0.012) X10*3/uL Nucleated RBC % (auto) (0.0-0.2) /100WBC Sodium (135-145) mmol/L Potassium (3.3-5.1) mmol/L Chloride (96-108) mmol/L Carbon Dioxide (22-29) mmol/L Anion Gap (12-20) BUN (9-16) mg/dL Creatinine (0.5-1.4) mg/dL Estim Creat Clear Calc Estimated GFR Random Glucose (60-115) mg/dL Calcium (8.4-10.2) mg/dL Magnesium (1.6-2.6) mg/dL Total Bilirubin (0.0-1.0) mg/dL AST (5-31) U/L ALT (0-31) U/L Alkaline Phosphatase (39-117) U/L Troponin I High Sens (<3.5-17.0) ng/L B-Natriuretic Peptide (<100) pg/mL Total Protein (6.5-8.0) g/dL Albumin (3.5-5.0) g/dL Urine Color Yellow Urine Appearance Clear Urine pH 5.5 (5.0-9.0) Ur Specific [place] 1.020 (1.005-1.025) Urine Protein Negative (Neg-Trace) mg/dL Urine Glucose (UA) Negative (Negative) mg/dL Urine Ketones Negative (Negative) mg/dL Urine Blood Negative (Negative) Urine Nitrite Negative (Negative) Ur Leukocyte Esterase Small (1+) H (Negative) Urine RBC 0-2 (0-2) /HPF Urine WBC 21-50 H (0-5) /HPF Ur Squamous Epith Cells 0-2 (0-2) /HPF Urine Bacteria 4+ (None Seen) Hyaline Casts 0-2 (0-2) /LPF COVID-19 (GONZALEZ) (Negative) COVID-19 Clin Com Influenza Type A (MARIE) (Negative) Influenza Type B (MARIE) (Negative) Influenza A & B Note <Barbra Cherry, [facility] - Last Filed: 08/31/22 19:35> Lab Results 08/31/22 08/31/22 08/31/22 Range/Units 09:31 09:31 09:43 WBC 6.9 (4.8-10.8) X10*3/uL RBC 4.32 (4.20-5.50) X10*6/uL Hgb 13.0 (12.0-16.0) g/dl Hct 39.8 (37.0-47.0) % MCV 92.1 (80.0-98.0) fL MCH 30.1 (27.0-33.0) pg MCHC 32.7 (31.0-35.0) g/dl RDW 12.8 (11.0-16.0) % Plt Count 177 (160-400) X10*3/uL MPV 10.0 (9.4-12.3) fL Immature Gran % (Auto) 0.4 (0.0-0.4) % Neut % (Auto) 61.7 (45-73) % Lymph % (Auto) 28.9 (20-40) % [place] % (Auto) 7.9 (2-11) % Eos % (Auto) 1.0 (0-4) % Baso % (Auto) 0.1 (0-2) % Lymph # (Auto) 2.0 (1.2-4.9) X10*3/uL [place] # (Auto) 0.5 (0.1-1.2) X10*3/uL Eos # (Auto) 0.1 (0.0-0.4) X10*3/uL Baso # (Auto) 0.0 (0.0-0.2) X10*3/uL Abs Immat Gran (auto) 0.03 (0.00-0.03) X10*3/uL Absolute Neuts (auto) 4.2 (2.0-8.3) x10*3/uL Absolute Nucleated RBC 0.000 (0.0-0.012) X10*3/uL Nucleated RBC % (auto) 0.0 (0.0-0.2) /100WBC Sodium (135-145) mmol/L Potassium (3.3-5.1) mmol/L Chloride (96-108) mmol/L Carbon Dioxide (22-29) mmol/L Anion Gap (12-20) BUN (9-16) mg/dL Creatinine (0.5-1.4) mg/dL Estim Creat Clear Calc Estimated GFR Random Glucose (60-115) mg/dL Calcium (8.4-10.2) mg/dL Magnesium (1.6-2.6) mg/dL Total Bilirubin (0.0-1.0) mg/dL AST (5-31) U/L ALT (0-31) U/L Alkaline Phosphatase (39-117) U/L Troponin I High Sens (<3.5-17.0) ng/L B-Natriuretic Peptide (<100) pg/mL Total Protein (6.5-8.0) g/dL Albumin (3.5-5.0) g/dL Urine Color Urine Appearance Urine pH (5.0-9.0) Ur Specific [place] (1.005-1.025) Urine Protein (Neg-Trace) mg/dL Urine Glucose (UA) (Negative) mg/dL Urine Ketones (Negative) mg/dL Urine Blood (Negative) Urine Nitrite (Negative) Ur Leukocyte Esterase (Negative) Urine RBC (0-2) /HPF Urine WBC (0-5) /HPF Ur Squamous Epith Cells (0-2) /HPF Urine Bacteria (None Seen) Hyaline Casts (0-2) /LPF COVID-19 (GONZALEZ) Negative (Negative) COVID-19 Clin Com See Note Influenza Type A (MARIE) Negative (Negative) Influenza Type B (MARIE) Negative (Negative) Influenza A & B Note See Note 08/31/22 08/31/22 08/31/22 Range/Units 09:43 09:43 09:43 WBC (4.8-10.8) X10*3/uL RBC (4.20-5.50) X10*6/uL Hgb (12.0-16.0) g/dl Hct (37.0-47.0) % MCV (80.0-98.0) fL MCH (27.0-33.0) pg MCHC (31.0-35.0) g/dl RDW (11.0-16.0) % Plt Count (160-400) X10*3/uL MPV (9.4-12.3) fL Immature Gran % (Auto) (0.0-0.4) % Neut % (Auto) (45-73) % Lymph % (Auto) (20-40) % [place] % (Auto) (2-11) % Eos % (Auto) (0-4) % Baso % (Auto) (0-2) % Lymph # (Auto) (1.2-4.9) X10*3/uL [place] # (Auto) (0.1-1.2) X10*3/uL Eos # (Auto) (0.0-0.4) X10*3/uL Baso # (Auto) (0.0-0.2) X10*3/uL Abs Immat Gran (auto) (0.00-0.03) X10*3/uL Absolute Neuts (auto) (2.0-8.3) x10*3/uL Absolute Nucleated RBC (0.0-0.012) X10*3/uL Nucleated RBC % (auto) (0.0-0.2) /100WBC Sodium 145 (135-145) mmol/L Potassium 4.2 (3.3-5.1) mmol/L Chloride 113 H (96-108) mmol/L Carbon Dioxide 26 (22-29) mmol/L Anion Gap 10 L (12-20) BUN 23 H (9-16) mg/dL Creatinine 0.81 (0.5-1.4) mg/dL Estim Creat Clear Calc 58.6 Estimated GFR > 60 Random Glucose 167 H (60-115) mg/dL Calcium 9.5 (8.4-10.2) mg/dL Magnesium 2.0 (1.6-2.6) mg/dL Total Bilirubin 0.4 (0.0-1.0) mg/dL AST 16 (5-31) U/L ALT 20 (0-31) U/L Alkaline Phosphatase 83 (39-117) U/L Troponin I High Sens < 3.5 (<3.5-17.0) ng/L B-Natriuretic Peptide < 10 (<100) pg/mL Total Protein 7.9 (6.5-8.0) g/dL Albumin 4.4 (3.5-5.0) g/dL Urine Color Urine Appearance Urine pH (5.0-9.0) Ur Specific [place] (1.005-1.025) Urine Protein (Neg-Trace) mg/dL Urine Glucose (UA) (Negative) mg/dL Urine Ketones (Negative) mg/dL Urine Blood (Negative) Urine Nitrite (Negative) Ur Leukocyte Esterase (Negative) Urine RBC (0-2) /HPF Urine WBC (0-5) /HPF Ur Squamous Epith Cells (0-2) /HPF Urine Bacteria (None Seen) Hyaline Casts (0-2) /LPF COVID-19 (GONZALEZ) (Negative) COVID-19 Clin Com Influenza Type A (MARIE) (Negative) Influenza Type B (MARIE) (Negative) Influenza A & B Note 08/31/22 Range/Units 10:25 WBC (4.8-10.8) X10*3/uL RBC (4.20-5.50) X10*6/uL Hgb (12.0-16.0) g/dl Hct (37.0-47.0) % MCV (80.0-98.0) fL MCH (27.0-33.0) pg MCHC (31.0-35.0) g/dl RDW (11.0-16.0) % Plt Count (160-400) X10*3/uL MPV (9.4-12.3) fL Immature Gran % (Auto) (0.0-0.4) % Neut % (Auto) (45-73) % Lymph % (Auto) (20-40) % [place] % (Auto) (2-11) % Eos % (Auto) (0-4) % Baso % (Auto) (0-2) % Lymph # (Auto) (1.2-4.9) X10*3/uL [place] # (Auto) (0.1-1.2) X10*3/uL Eos # (Auto) (0.0-0.4) X10*3/uL Baso # (Auto) (0.0-0.2) X10*3/uL Abs Immat Gran (auto) (0.00-0.03) X10*3/uL Absolute Neuts (auto) (2.0-8.3) x10*3/uL Absolute Nucleated RBC (0.0-0.012) X10*3/uL Nucleated RBC % (auto) (0.0-0.2) /100WBC Sodium (135-145) mmol/L Potassium (3.3-5.1) mmol/L Chloride (96-108) mmol/L Carbon Dioxide (22-29) mmol/L Anion Gap (12-20) BUN (9-16) mg/dL Creatinine (0.5-1.4) mg/dL Estim Creat Clear Calc Estimated GFR Random Glucose (60-115) mg/dL Calcium (8.4-10.2) mg/dL Magnesium (1.6-2.6) mg/dL Total Bilirubin (0.0-1.0) mg/dL AST (5-31) U/L ALT (0-31) U/L Alkaline Phosphatase (39-117) U/L Troponin I High Sens (<3.5-17.0) ng/L B-Natriuretic Peptide (<100) pg/mL Total Protein (6.5-8.0) g/dL Albumin (3.5-5.0) g/dL Urine Color Yellow Urine Appearance Clear Urine pH 5.5 (5.0-9.0) Ur Specific [place] 1.020 (1.005-1.025) Urine Protein Negative (Neg-Trace) mg/dL Urine Glucose (UA) Negative (Negative) mg/dL Urine Ketones Negative (Negative) mg/dL Urine Blood Negative (Negative) Urine Nitrite Negative (Negative) Ur Leukocyte Esterase Small (1+) H (Negative) Urine RBC 0-2 (0-2) /HPF Urine WBC 21-50 H (0-5) /HPF Ur Squamous Epith Cells 0-2 (0-2) /HPF Urine Bacteria 4+ (None Seen) Hyaline Casts 0-2 (0-2) /LPF COVID-19 (GONZALEZ) (Negative) COVID-19 Clin Com Influenza Type A (MARIE) (Negative) Influenza Type B (MARIE) (Negative) Influenza A & B Note <Bernard Rodriguez MD - Last Filed: 08/31/22 21:30> Lab Results 08/31/22 08/31/22 08/31/22 Range/Units 09:31 09:31 09:43 WBC 6.9 (4.8-10.8) X10*3/uL RBC 4.32 (4.20-5.50) X10*6/uL Hgb 13.0 (12.0-16.0) g/dl Hct 39.8 (37.0-47.0) % MCV 92.1 (80.0-98.0) fL MCH 30.1 (27.0-33.0) pg MCHC 32.7 (31.0-35.0) g/dl RDW 12.8 (11.0-16.0) % Plt Count 177 (160-400) X10*3/uL MPV 10.0 (9.4-12.3) fL Immature Gran % (Auto) 0.4 (0.0-0.4) % Neut % (Auto) 61.7 (45-73) % Lymph % (Auto) 28.9 (20-40) % [place] % (Auto) 7.9 (2-11) % Eos % (Auto) 1.0 (0-4) % Baso % (Auto) 0.1 (0-2) % Lymph # (Auto) 2.0 (1.2-4.9) X10*3/uL [place] # (Auto) 0.5 (0.1-1.2) X10*3/uL Eos # (Auto) 0.1 (0.0-0.4) X10*3/uL Baso # (Auto) 0.0 (0.0-0.2) X10*3/uL Abs Immat Gran (auto) 0.03 (0.00-0.03) X10*3/uL Absolute Neuts (auto) 4.2 (2.0-8.3) x10*3/uL Absolute Nucleated RBC 0.000 (0.0-0.012) X10*3/uL Nucleated RBC % (auto) 0.0 (0.0-0.2) /100WBC Sodium (135-145) mmol/L Potassium (3.3-5.1) mmol/L Chloride (96-108) mmol/L Carbon Dioxide (22-29) mmol/L Anion Gap (12-20) BUN (9-16) mg/dL Creatinine (0.5-1.4) mg/dL Estim Creat Clear Calc Estimated GFR Random Glucose (60-115) mg/dL Calcium (8.4-10.2) mg/dL Magnesium (1.6-2.6) mg/dL Total Bilirubin (0.0-1.0) mg/dL AST (5-31) U/L ALT (0-31) U/L Alkaline Phosphatase (39-117) U/L Troponin I High Sens (<3.5-17.0) ng/L B-Natriuretic Peptide (<100) pg/mL Total Protein (6.5-8.0) g/dL Albumin (3.5-5.0) g/dL Urine Color Urine Appearance Urine pH (5.0-9.0) Ur Specific [place] (1.005-1.025) Urine Protein (Neg-Trace) mg/dL Urine Glucose (UA) (Negative) mg/dL Urine Ketones (Negative) mg/dL Urine Blood (Negative) Urine Nitrite (Negative) Ur Leukocyte Esterase (Negative) Urine RBC (0-2) /HPF Urine WBC (0-5) /HPF Ur Squamous Epith Cells (0-2) /HPF Urine Bacteria (None Seen) Hyaline Casts (0-2) /LPF COVID-19 (GONZALEZ) Negative (Negative) COVID-19 Clin Com See Note Influenza Type A (MARIE) Negative (Negative) Influenza Type B (MARIE) Negative (Negative) Influenza A & B Note See Note 08/31/22 08/31/22 08/31/22 Range/Units 09:43 09:43 09:43 WBC (4.8-10.8) X10*3/uL RBC (4.20-5.50) X10*6/uL Hgb (12.0-16.0) g/dl Hct (37.0-47.0) % MCV (80.0-98.0) fL MCH (27.0-33.0) pg MCHC (31.0-35.0) g/dl RDW (11.0-16.0) % Plt Count (160-400) X10*3/uL MPV (9.4-12.3) fL Immature Gran % (Auto) (0.0-0.4) % Neut % (Auto) (45-73) % Lymph % (Auto) (20-40) % [place] % (Auto) (2-11) % Eos % (Auto) (0-4) % Baso % (Auto) (0-2) % Lymph # (Auto) (1.2-4.9) X10*3/uL [place] # (Auto) (0.1-1.2) X10*3/uL Eos # (Auto) (0.0-0.4) X10*3/uL Baso # (Auto) (0.0-0.2) X10*3/uL Abs Immat Gran (auto) (0.00-0.03) X10*3/uL Absolute Neuts (auto) (2.0-8.3) x10*3/uL Absolute Nucleated RBC (0.0-0.012) X10*3/uL Nucleated RBC % (auto) (0.0-0.2) /100WBC Sodium 145 (135-145) mmol/L Potassium 4.2 (3.3-5.1) mmol/L Chloride 113 H (96-108) mmol/L Carbon Dioxide 26 (22-29) mmol/L Anion Gap 10 L (12-20) BUN 23 H (9-16) mg/dL Creatinine 0.81 (0.5-1.4) mg/dL Estim Creat Clear Calc 58.6 Estimated GFR > 60 Random Glucose 167 H (60-115) mg/dL Calcium 9.5 (8.4-10.2) mg/dL Magnesium 2.0 (1.6-2.6) mg/dL Total Bilirubin 0.4 (0.0-1.0) mg/dL AST 16 (5-31) U/L ALT 20 (0-31) U/L Alkaline Phosphatase 83 (39-117) U/L Troponin I High Sens < 3.5 (<3.5-17.0) ng/L B-Natriuretic Peptide < 10 (<100) pg/mL Total Protein 7.9 (6.5-8.0) g/dL Albumin 4.4 (3.5-5.0) g/dL Urine Color Urine Appearance Urine pH (5.0-9.0) Ur Specific [place] (1.005-1.025) Urine Protein (Neg-Trace) mg/dL Urine Glucose (UA) (Negative) mg/dL Urine Ketones (Negative) mg/dL Urine Blood (Negative) Urine Nitrite (Negative) Ur Leukocyte Esterase (Negative) Urine RBC (0-2) /HPF Urine WBC (0-5) /HPF Ur Squamous Epith Cells (0-2) /HPF Urine Bacteria (None Seen) Hyaline Casts (0-2) /LPF COVID-19 (GONZALEZ) (Negative) COVID-19 Clin Com Influenza Type A (MARIE) (Negative) Influenza Type B (MARIE) (Negative) Influenza A & B Note 08/31/22 Range/Units 10:25 WBC (4.8-10.8) X10*3/uL RBC (4.20-5.50) X10*6/uL Hgb (12.0-16.0) g/dl Hct (37.0-47.0) % MCV (80.0-98.0) fL MCH (27.0-33.0) pg MCHC (31.0-35.0) g/dl RDW (11.0-16.0) % Plt Count (160-400) X10*3/uL MPV (9.4-12.3) fL Immature Gran % (Auto) (0.0-0.4) % Neut % (Auto) (45-73) % Lymph % (Auto) (20-40) % [place] % (Auto) (2-11) % Eos % (Auto) (0-4) % Baso % (Auto) (0-2) % Lymph # (Auto) (1.2-4.9) X10*3/uL [place] # (Auto) (0.1-1.2) X10*3/uL Eos # (Auto) (0.0-0.4) X10*3/uL Baso # (Auto) (0.0-0.2) X10*3/uL Abs Immat Gran (auto) (0.00-0.03) X10*3/uL Absolute Neuts (auto) (2.0-8.3) x10*3/uL Absolute Nucleated RBC (0.0-0.012) X10*3/uL Nucleated RBC % (auto) (0.0-0.2) /100WBC Sodium (135-145) mmol/L Potassium (3.3-5.1) mmol/L Chloride (96-108) mmol/L Carbon Dioxide (22-29) mmol/L Anion Gap (12-20) BUN (9-16) mg/dL Creatinine (0.5-1.4) mg/dL Estim Creat Clear Calc Estimated GFR Random Glucose (60-115) mg/dL Calcium (8.4-10.2) mg/dL Magnesium (1.6-2.6) mg/dL Total Bilirubin (0.0-1.0) mg/dL AST (5-31) U/L ALT (0-31) U/L Alkaline Phosphatase (39-117) U/L Troponin I High Sens (<3.5-17.0) ng/L B-Natriuretic Peptide (<100) pg/mL Total Protein (6.5-8.0) g/dL Albumin (3.5-5.0) g/dL Urine Color Yellow Urine Appearance Clear Urine pH 5.5 (5.0-9.0) Ur Specific [place] 1.020 (1.005-1.025) Urine Protein Negative (Neg-Trace) mg/dL Urine Glucose (UA) Negative (Negative) mg/dL Urine Ketones Negative (Negative) mg/dL Urine Blood Negative (Negative) Urine Nitrite Negative (Negative) Ur Leukocyte Esterase Small (1+) H (Negative) Urine RBC 0-2 (0-2) /HPF Urine WBC 21-50 H (0-5) /HPF Ur Squamous Epith Cells 0-2 (0-2) /HPF Urine Bacteria 4+ (None Seen) Hyaline Casts 0-2 (0-2) /LPF COVID-19 (GONZALEZ) (Negative) COVID-19 Clin Com Influenza Type A (MARIE) (Negative) Influenza Type B (MARIE) (Negative) Influenza A & B Note <DARRIUS Guzman - Last Filed: 09/04/22 14:58> Independent Interpretation I performed an independent interpretation of an: EKG <Barbra Cherry CNP - Last Filed: 08/31/22 19:35> Interpretation: Rate: 57 Rhythm:? Sinus bradycardia [place]:? Normal Normal P waves.? Normal CARLOS.?? Normal QRS complex.?? ST T wave :??No ST elevation, no ST depression, no T-wave inversion qTC: 410 prior studies:? May 2022 The study has been interpreted contemporaneously by me. <Barbra Cherry, DRY ROOM OPERATOR - Last Filed: 08/31/22 19:35> Radiology Impression Discussion of test interpretation with radiology: I have reviewed the radiologist's reading. <Barbra Jimenez ROLAND Cherry - Last Filed: 08/31/22 19:35> Radiologist Impression: XR/XR chest 2V IMPRESSION: No new focal infiltrates or effusions. No significant change since previous evaluation. Minimal linear atelectasis at the left base. <Barbracassi Cherry CNP - Last Filed: 08/31/22 19:35> Discharge Plan Discharge Clinical Impression: Dizziness <Barbra Barbarathomas Cherry CNP - Last Filed: 08/31/22 19:35> Patient Disposition: Xfer SNF <Barbra Jimenez ROLAND Cherry - Last Filed: 08/31/22 19:35> Instructions: Dizziness (ED) <Barbra Barbara ROLAND Cherry - Last Filed: 08/31/22 19:35> Prescriptions: No Action apixaban 5 mg Tablet 5 mg PO BID topiramate 25 mg Tablet 25 mg PO BID duloxetine 30 mg Capsule,Delayed Release(Dr/Ec) 30 mg PO BEDTIME olanzapine 10 mg Tablet 10 mg PO BEDTIME simvastatin 10 mg Tablet 10 mg PO BEDTIME trazodone 50 mg Tablet 25 mg BEDTIME brimonidine 0.2 % Drops 1 drp ophthalmic (eye) DAILY timolol maleate 0.5 % Drops 1 drp OPHTHALMIC (EYE) DAILY acetaminophen 325 mg Tablet 650 mg PO Q6H MDD PAIN/HEADACHE PRN (Reason: Dehydration) Januvia 100 mg Tablet 100 mg PO DAILY Qty: 30 0RF insulin lispro [Humalog U-100 Insulin] 100 unit/mL Solution See Protocol subcut QIDACHS Qty: 10 0RF Protocol: Insulin Correction Scale Less than or equal to 110 ---- Give (units): 0 111 to 150 Give (units): 0 151 to 200 Give (units): 2 201 to 250 Give (units): 4 251 to 300 Give (units): 6 301 to 350 Give (units): 8 Greater than 350 Give (units): 10 Call MD if Blood Glucose > : 350 melatonin 5 mg Tablet 5 mg PO BEDTIME PRN (Reason: Insomnia) insulin glargine [Lantus U-100 Insulin] 100 unit/mL solution 17 unit subcut BEDTIME cefuroxime axetil 250 mg tablet 250 mg PO BID 10 Days Qty: 20 0RF cefuroxime axetil 500 mg tablet 500 mg PO BID Qty: 20 0RF cefuroxime axetil 250 mg tablet 250 mg PO BID 7 Days Qty: 14 0RF polyethylene glycol 3350 [Miralax] 17 gram/dose powder 17 g PO DAILY Qty: 119 0RF senna 8.6 mg capsule 8.6 mg PO BEDTIME Qty: 14 0RF docusate sodium [Colace] 100 mg capsule 100 mg PO BID Qty: 30 0RF bisacodyl [Dulcolax (bisacodyl)] 10 mg suppository 10 mg ME DAILY PRN (Reason: constipation) Qty: 12 0RF <Barbra Cherry CNP - Last Filed: 08/31/22 19:35> Referrals: Phuong Hurst [employer] [Primary Care Provider] - 2 days <Barbra Cherry CNP - Last Filed: 08/31/22 19:35> Interventions: ED Discharge Assessment Last Done: 08/31/22 22:41 <Barbra Cherry CNP - Last Filed: 08/31/22 19:35> Discharge Date/Time: 08/31/22 22:42 <Barbra Cherry CNP - Last Filed: 08/31/22 19:35>
[2022-08-31 09:51] LABS: COVID-19 Test Negative (Negative); IDNOW Serial# 16C4AD1C
[2022-08-31 09:59] LABS: MANUAL DIFF FLAG NO
[2022-08-31 10:05] LABS: Basophils Percent Auto 0.1 % (0-2); Eosinophils Absolute Auto 0.1 X10*3/uL (0.0-0.4); Hematocrit 39.8 % (37.0-47.0); Imm Gran Abs Auto 0.03 X10*3/uL (0.00-0.03); Imm Gran Pct Auto 0.4 % (0.0-0.4); Lymphocytes Percent Auto 28.9 % (20-40); Mean Corpuscular HGB Conc 32.7 g/dl (31.0-35.0); Mean Corpuscular Hemoglobin 30.1 pg (27.0-33.0); Mean Corpuscular Volume 92.1 fL (80.0-98.0); Monocytes Absolute Auto 0.5 X10*3/uL (0.1-1.2); Monocytes Percent Auto 7.9 % (2-11); Neutrophils Absolute Auto 4.2 x10*3/uL (2.0-8.3); Neutrophils Percent Auto 61.7 % (45-73); Platelet Count 177 X10*3/uL (160-400); Red Blood Count 4.32 X10*6/uL (4.20-5.50); Red Cell Distribution Width 12.8 % (11.0-16.0); White Blood Count 6.9 X10*3/uL (4.8-10.8)
[2022-08-31 10:05] LABS: IDNOW Serial# 9DB6401D; Influenza A Negative (Negative); Influenza B2 Negative (Negative)
[2022-08-31 10:35] LABS: B Type Natriuretic Peptide < 10 pg/mL (<100); Troponin-I High Sensitivity < 3.5 ng/L (<3.5-17.0)
[2022-08-31 10:40] LABS: Alanine Aminotransferase 20 U/L (0-31); Albumin Level 4.4 g/dL (3.5-5.0); Alkaline Phosphatase 83 U/L (39-117); Anion Gap 10 (12-20); Aspartate Amino Transferase 16 U/L (5-31); Blood Urea Nitrogen 23 mg/dL (9-16); Calcium 9.5 mg/dL (8.4-10.2); Carbon Dioxide 26 mmol/L (22-29); Chloride 113 mmol/L (96-108); Creatinine Clr Calc Pharmacy 58.6; Estimated Glomerular Filt Rate > 60; Glucose Random 167 mg/dL (60-115); Potassium 4.2 mmol/L (3.3-5.1); Sodium 145 mmol/L (135-145); Total Protein 7.9 g/dL (6.5-8.0)
[2022-08-31 10:42] LABS: Appearance Urine Clear; Color Urine Yellow; Glucose Urine UA Negative (Negative); Leukocyte Esterase Urine Small (1+) (Negative); Nitrite Urine Negative (Negative); PH 5.5 (5.0-9.0); UMIC TRIGGER UACC YES; Urine Blood Negative (Negative); Urine Ketones Negative (Negative); Urine Protein Negative (Neg-Trace)
[2022-08-31 10:58] LABS: Bacteria Urine 4+ (None Seen); Hyaline Casts Urine 0-2 /LPF (0-2); RBC Urine 0-2 /HPF (0-2); Squamous Epithelial Cell Urine 0-2 /HPF (0-2); UACC Culture Trigger YES; WBC Urine 21-50 /HPF (0-5)
--- NOTE | 2022-08-31 11:18 | MHC.EDTECH ---
Addendum entered by Elyse Dorsey 08/31/22 11:19: 09:26 Original Note: incorrect EKG time was documented. correct time 09:36
[2022-08-31 11:49] LABS: Bilirubin Total 0.4 mg/dL (0.0-1.0)
[2022-08-31] MEDS: cefTRIAXone sodium 1 GM in 0.9 % Sodium Chloride 50 ML IV (11:49)
--- NOTE | 2022-08-31 17:28 | MHC.EDTECH ---
PT VITALS SIGN AND ORTHOSTATICS VITALS DONE ,PT WAS REPOSITION AND WARM BLANKET GIVEN .
--- NOTE | 2022-08-31 18:55 | PC.NURSE ---
family attempted to call to help fill out MRI form, filled out by help by pt and pt chart
--- NOTE | 2022-08-31 19:10 | PC.NURSE ---
Pt taken to MRI by agriculture technician.
--- NOTE | 2022-08-31 20:17 | PC.NURSE ---
Pt resting quietly, no needs expressed at this time.
--- NOTE | 2022-08-31 21:45 | PC.NURSE ---
Called [facility] See Jensen, report given.
--- NOTE | 2022-08-31 21:45 | MHC.EDTECH ---
2200 rounding done ,pt vitals sign taken pt is dry ,pt was hungry so this pct give pt a ham sandwich and a anabelle paco for snack
== END 2022-08-31 22:42 | disposition skilled nursing facility (03) ==
PROVIDERS: Nurse Practitioner Family; Emergency Provider Emergency Medicine; PCP Nurse Practitioner Adult Health
DX: R42 Dizziness and giddiness (principal); R51.9 Headache, unspecified; R06.02 Shortness of breath; Z20.822 Contact with and (suspected) exposure to COVID-19; Z79.899 Other long term (current) drug therapy; Z87.891 Personal history of nicotine dependence
CPT/HCPCS: 70450; 70551; 71046; 74018; 80053; 81001; 83735; 83880; 84484; 85025; 87040; 87086; 87088; 87186; 87502; 87635; 93005; 96365; 96366; 99285; J0696

== ENCOUNTER 2022-09-20 15:28 | Emergency (ER) | payer MEDICARE, MEDICAID, SELFPAY ==
--- NOTE | ~2022-09-20 | XR_ITS ---
EXAMINATION: XR CHEST CLINICAL INFORMATION: Weakness COMPARISON: Chest radiographs 08/31/2022, 06/01/2022; CT abdomen 07/09/2022 TECHNIQUE: 2 views of the chest were obtained. FINDINGS: Frontal view is slightly rotated with patient's chin overlying the left lung apex. The heart is normal in size. The vascularity is normal. There is no vascular congestion, airspace consolidation, or groundglass opacity. The costophrenic sulci are clear. The hilar and mediastinal contours and visualized bony structures are unremarkable. XR/XR chest 2V IMPRESSION: Unremarkable examination.
[2022-09-20 15:38] VITALS: BP 120/66; PULSE 74; O2SAT 90; BMI 24.0
[2022-09-20 15:41] VITALS: BP 109/51; PULSE 69; RESP 20; TEMP 37.4; O2SAT 98
--- NOTE | 2022-09-20 15:52 | ECG_ITS ---
Test Reason : WEAKNESS Blood Pressure : / mmHG Vent. Rate : 067 BPM Atrial Rate : 067 BPM P-R Int : 160 ms QRS Dur : 092 ms QT Int : 384 ms P-R-T Axes : 065 046 042 degrees QTc Int : 405 ms Normal sinus rhythm Normal ECG When compared with ECG of 31-AUG-2022 09:26, No significant change was found Referred By: Jolly Bob Electronically Signed By:SILVIO CARREON
--- NOTE | 2022-09-20 16:02 | ED_ITS ---
HPI - Weakness General Chief complaint: Weakness <Jolly Bob NP - Last Filed: 09/20/22 17:26> Stated complaint: COVID+ <Jolly Bob NP - Last Filed: 09/20/22 17:26> Time Seen by Provider: 09/20/22 15:44 <Jolly Bob NP - Last Filed: 09/20/22 17:26> Source: patient and EMS <Jolly Bob NP - Last Filed: 09/20/22 17:26> Mode of arrival: EMS <Jolly Bob NP - Last Filed: 09/20/22 17:26> Limitations: altered mental status <Jolly Bob NP - Last Filed: 09/20/22 17:26> History of Present Illness HPI Narrative: 72-year-old female with a history of PE on Eliquis, dementia coming from [facility] with complaints of generalized weakness, poor p.o. intake, concern for hypoxia. Patient is currently COVID positive. No cough, fever, shortness of breath, chest pain, leg swelling or leg pain. <Jolly Bob NP - Last Filed: 09/20/22 17:26> Related Data Home medications: Home Medications Medication Instructions Recorded Confirmed acetaminophen 325 mg tablet 650 mg PO Q6H PRN Dehydration 02/26/22 09/20/22 apixaban 5 mg tablet 5 mg PO BID 02/26/22 09/20/22 brimonidine 0.2 % eye drops 1 drp ophthalmic (eye) DAILY 02/26/22 09/20/22 duloxetine 30 mg capsule,delayed 30 mg PO BEDTIME 02/26/22 09/20/22 release olanzapine 10 mg tablet 10 mg PO BEDTIME 02/26/22 09/20/22 simvastatin 10 mg tablet 10 mg PO BEDTIME 02/26/22 09/20/22 timolol maleate 0.5 % eye drops 1 drp ophthalmic (eye) BEDTIME 02/26/22 09/20/22 topiramate 25 mg tablet 25 mg PO BID 02/26/22 09/20/22 trazodone 50 mg tablet 25 mg BEDTIME 02/26/22 09/20/22 melatonin 5 mg tablet 5 mg PO BEDTIME PRN Insomnia 04/05/22 09/20/22 insulin glargine 100 unit/mL (3 17 unit subcut BEDTIME 09/20/22 09/20/22 mL) subcutaneous pen (Basaglar KwikPen U-100 Insulin) sennosides 8.6 mg capsule (senna) 17.2 mg PO BEDTIME 09/20/22 09/20/22 Previous Rx's Medication Instructions Recorded sitagliptin phosphate 100 mg 100 mg PO DAILY #30 tabs 03/03/22 tablet (Januvia) docusate sodium 100 mg capsule 100 mg PO BID #30 caps 07/09/22 (Colace) polyethylene glycol 3350 17 17 g PO DAILY #119 grams 07/09/22 gram/dose oral powder (Miralax) <Jolly Bob NP - Last Filed: 09/20/22 17:26> Allergies/Adverse reactions: Allergies Allergy/AdvReac Type Severity Reaction Status Date / Time Penicillins Allergy Hives Verified 06/01/22 08:32 <Jolly Bob NP - Last Filed: 09/20/22 17:26> Review of Systems Review of Systems: Yes all other systems are reviewed and are negative <Jolly Bob NP - Last Filed: 09/20/22 17:26> Constitutional: Constitutional: Reports no additional constitutional complaints, Denies body ache(s), Denies chills, Denies fever(s), Denies headache(s), Reports poor appetite and Reports weakness <KIMBERLY Weinberg Last Filed: 09/20/22 17:26> Eyes: Eyes: Reports no additional eye complaints and Denies change in vision <Jolly Bob NP - Last Filed: 09/20/22 17:26> ENT: Reports system reviewed and no additional complaints, except as documented, Denies dizziness, Denies headache(s), Denies nasal congestion, D enies nasal discharge and Denies neck pain <KIMBERLY Weinberg Last Filed: 09/20/22 17:26> Cardiovascular: Cardiovascular: Reports no additional cardiovascular complaints, Denies chest pain, Denies leg edema and Denies dyspnea <Jolly Bob NP - Last Filed: 09/20/22 17:26> Respiratory: Respiratory: Reports no additional respiratory complaints, Denies cough and Denies dyspnea <Jolly Bob NP - Last Filed: 09/20/22 17:26> Gastrointestinal: Gastrointestinal: Reports no additional gastrointestinal complaints, Denies abdominal pain, Denies diarrhea, Denies nausea and Denies vomiting <Jolly Bob NP - Last Filed: 09/20/22 17:26> Genitourinary: Genitourinary: Reports no additional female genitourinary complaints and Denies urinary incontinence <Jolly Bob NP - Last Filed: 09/20/22 17:26> Musculoskeletal: Musculoskeletal: Reports no additional musculoskeletal complaints, Denies back pain, Denies arthralgias, Denies joint swelling, Denies neck pain, Denies numbness and Denies tingling <Jolly Bob NP - Last Filed: 09/20/22 17:26> Integumentary/Breasts: Skin/Breast: Reports system reviewed and no additional complaints, except as docu and Denies rash <Jolly Bob NP - Last Filed: 09/20/22 17:26> Neurologic: Reports system reviewed and no additional complaints, except as documented, Denies Abnormal speech present, Reports confusion, Denies dizziness, Denies headache(s), Denies numbness, Denies tingling and Reports weakness <Jolly Bob NP - Last Filed: 09/20/22 17:26> Psychiatric: Psychiatric: Reports confusion <Jolly Bob NP - Last Filed: 09/20/22 17:26> FOR[facility]LY [facility] Past Medical History Attestation statement: The following information was validated with the patient. <Jolly Bob NP - Last Filed: 09/20/22 17:26> Source: old records reviewed and nursing notes reviewed <Jolly Bob NP - Last Filed: 09/20/22 17:26> Medical History: Medical History Coronary artery disease DVT (deep venous thrombosis) Glaucoma Neuropathy Non-insulin dependent diabetes mellitus Pulmonary embolism Vascular dementia <Jolly Bob NP - Last Filed: 09/20/22 17:26> Social History Social History: Social History Household Members: Other Household Members Other:: Rest Home Housing: [facility] Do you presently have visiting nurse or other home services: Yes Unable to assess alcohol history related to: Unable to respond Alcohol intake: never Patient Tobacco Use Status: Former Tobacco user Smoked in Last 30 Days: No Use of substances other than those prescribed or required for medical reasons: No Advance Directives: No Advance Directives Information Provided: Yes service: No <Jolly Bob NP - Last Filed: 09/20/22 17:26> Physical Exam Vital Signs: Vital Signs: Last Vital Signs Temp 98.6 F 09/22/22 07:36 Pulse 80 09/22/22 07:36 Resp 14 09/22/22 07:36 BP 113/68 09/22/22 07:36 Pulse Ox 94 09/22/22 07:36 O2 Del Method 09/22/22 07:36 O2 Flow Rate 2 09/20/22 15:41 BMI result Body Mass Index 24.0 <Jolly Bob NP - Last Filed: 09/20/22 17:26> Vital Signs: Last Vital Signs Temp 98.6 F 09/22/22 07:36 Pulse 80 09/22/22 07:36 Resp 14 09/22/22 07:36 BP 113/68 09/22/22 07:36 Pulse Ox 94 09/22/22 07:36 O2 Del Method 09/22/22 07:36 O2 Flow Rate 2 09/20/22 15:41 BMI result Body Mass Index 24.0 <John French DO - Last Filed: 09/21/22 11:48> Const: General: alert and confusion <Jolly Bob NP - Last Filed: 09/20/22 17:26> Orientation/consciousness: confusion <Jolly Bob NP - Last Filed: 09/20/22 17:26> Limitations: altered mental status <Jolly Bob NP - Last Filed: 09/20/22 17:26> HEENT: Head: Yes normal to inspection <Jolly Bob NP - Last Filed: 09/20/22 17:26> Ears: hearing grossly normal bilaterally and TM's normal bilaterally <Jolly Bob NP - Last Filed: 09/20/22 17:26> General nose exam: Normal external nose present <Jolly Bob NP - Last Filed: 09/20/22 17:26> Face and sinus: Yes normal facial exam <Jolly Bob NP - Last Filed: 09/20/22 17:26> Mouth: Normal oral and palatal mucosa present <Jolly Bob NP - Last Filed: 09/20/22 17:26> Throat: Yes posterior oropharynx normal, Yes tonsils normal and Yes uvula midline <Jolly Bob NP - Last Filed: 09/20/22 17:26> Eyes: General: appearance normal, both eyes and all related structures <Jolly Bob NP - Last Filed: 09/20/22 17:26> Pupils: Equal, round and reactive pupils present <Jolly Bob NP - Last Filed: 09/20/22 17:26> Neck: Neck: Yes normal visual inspection, Yes full ROM, Yes no lymphadenopathy and Yes no meningeal signs <Jolly Bob NP - Last Filed: 09/20/22 17:26> Chest: Chest palpation & inspection: normal inspection of the chest <Jolly Bob NP - Last Filed: 09/20/22 17:26> Resp: Effort & Inspection: normal respiratory effort <Jolly Bob NP - Last Filed: 09/20/22 17:26> Auscultation: clear to auscultation bilaterally <Jolly Bob NP - Last Filed: 09/20/22 17:26> Cardio: Rate: regular rate <Jolly Bob NP - Last Filed: 09/20/22 17:26> Rhythm: regular rhythm <Jolly Bob NP - Last Filed: 09/20/22 17:26> Peripheral pulses: Peripheral pulses 2+ throughout <Jolly Bob NP - Last Filed: 09/20/22 17:26> GI: Inspection: Yes normal to inspection <Jolly Bob NP - Last Filed: 09/20/22 17:26> Palpation (GI): Soft to palpation and nontender <Jolly Bob NP - Last Filed: 09/20/22 17:26> Auscultation: normal bowel sounds <Jolly Bob NP - Last Filed: 09/20/22 17:26> Back/Spine/Pelvis: Thoracic/Lumbar Spine: thoracic and lumbar spine normal to inspection <Jolly Bob NP - Last Filed: 09/20/22 17:26> Skin: General skin exam: no rashes or lesions noted <Jolly Bob NP - Last Filed: 09/20/22 17:26> Neuro: General: moves all extremities, no meningeal signs, no focal motor deficits, normal sensation to monofilament and confusion <KIMBERLY Weinberg Last Filed: 09/20/22 17:26> Cranial nerves: Yes Equal, round and reactive pupils present <Jolly Bob NP - Last Filed: 09/20/22 17:26> Speech: No Abnormal speech present <Jolly Bob NP - Last Filed: 09/20/22 17:26> Extrem: General: Yes normal to inspection, Yes no pedal edema and Yes no calf tenderness <KIMBERLY Weinberg Last Filed: 09/20/22 17:26> Course Course Course Narrative: Chest x-ray is negative for pneumonia. EKG and troponin unremarkable. Labs are unremarkable. Patient is diffusely weak. Patient is not requiring supplemental oxygen. Patient resides in a rest home ([facility]) where per Case Management she must be able to perform ADLs independently. Therefore I will place a physical therapy evaluation and case management consultation for the morning. Patient placed in physician observation pending disposition <KIMBERYL Weinberg Last Filed: 09/20/22 17:26> Medications Administered Generic Name Dose Route Start Last Admin Trade Name Freq PRN Reason Stop Dose Admin Apixaban 5 mg 09/21/22 21:00 09/21/22 20:04 Apixaban 5 Mg Tablet PO 5 mg BID REFUGIO Administration Atorvastatin Calcium 10 mg 09/21/22 21:00 09/21/22 20:03 Atorvastatin Calcium 10 Mg Tablet PO 10 mg BEDTIME REFUGIO Administration Cephalexin HCl 500 mg 09/21/22 17:00 09/21/22 20:04 Cephalexin 500 Mg Capsule PO 500 mg QID REFUGIO Administration Docusate Sodium 100 mg 09/21/22 21:00 09/21/22 20:05 Docusate Sodium 100 Mg Capsule PO 100 mg BID REFUGIO Administration Duloxetine HCl 30 mg 09/21/22 21:00 09/21/22 20:05 Duloxetine Hcl 30 Mg Capsule.Dr PO 30 mg BEDTIME REFUGIO Administration Insulin Glargine 17 unit 09/21/22 21:00 09/21/22 20:06 Insulin Glargine,Hum.Rec.Anlog 100 Unit/Ml 10 Ml Vial SUBCUT 17 unit BEDTIME REFUGIO Administration Olanzapine 10 mg 09/21/22 21:00 09/21/22 20:05 Olanzapine 10 Mg Tablet PO 10 mg BEDTIME REFUGIO Administration Senna 17.2 mg 09/21/22 21:00 09/21/22 20:06 Sennosides 8.6 Mg Tablet PO 17.2 mg BEDTIME REFUGIO Administration Timolol Maleate 1 drop 09/21/22 21:00 09/21/22 22:48 Timolol Maleate 0.5 % Oph Rina 5 Ml Drbtl EYE-BOTH 1 drop BEDTIME REFUGIO Administration Topiramate 25 mg 09/21/22 21:00 09/21/22 20:03 Topiramate 25 Mg Tablet PO 25 mg BID REFUGIO Administration Trazodone HCl 25 mg 09/21/22 21:00 09/21/22 20:02 Trazodone Hcl 25 Mg Halftab PO 25 mg BEDTIME REFUGIO Administration Discontinued Medications Generic Name Dose Route Start Last Admin Trade Name Freq PRN Reason Stop Dose Admin Cephalexin HCl 500 mg 09/21/22 11:45 09/21/22 12:06 Cephalexin 500 Mg Capsule PO 09/21/22 11:46 500 mg ONCE ONE Administration Cephalexin HCl 500 mg 09/21/22 13:00 09/21/22 13:22 Cephalexin 2,500 Mg/100 Ml Bottle PO Not Given QID REFUGIO <Jolly Bob NP - Last Filed: 09/20/22 17:26> Medications Administered Generic Name Dose Route Start Last Admin Trade Name Freq PRN Reason Stop Dose Admin Apixaban 5 mg 09/21/22 21:00 09/21/22 20:04 Apixaban 5 Mg Tablet PO 5 mg BID REFUGIO Administration Atorvastatin Calcium 10 mg 09/21/22 21:00 09/21/22 20:03 Atorvastatin Calcium 10 Mg Tablet PO 10 mg BEDTIME REFUGIO Administration Cephalexin HCl 500 mg 09/21/22 17:00 09/21/22 20:04 Cephalexin 500 Mg Capsule PO 500 mg QID REFUGIO Administration Docusate Sodium 100 mg 09/21/22 21:00 09/21/22 20:05 Docusate Sodium 100 Mg Capsule PO 100 mg BID REFUGIO Administration Duloxetine HCl 30 mg 09/21/22 21:00 09/21/22 20:05 Duloxetine Hcl 30 Mg Capsule.Dr PO 30 mg BEDTIME REFUGIO Administration Insulin Glargine 17 unit 09/21/22 21:00 09/21/22 20:06 Insulin Glargine,Hum.Rec.Anlog 100 Unit/Ml 10 Ml Vial SUBCUT 17 unit BEDTIME REFUGIO Administration Olanzapine 10 mg 09/21/22 21:00 09/21/22 20:05 Olanzapine 10 Mg Tablet PO 10 mg BEDTIME REFUGIO Administration Senna 17.2 mg 09/21/22 21:00 09/21/22 20:06 Sennosides 8.6 Mg Tablet PO 17.2 mg BEDTIME REFUGIO Administration Timolol Maleate 1 drop 09/21/22 21:00 09/21/22 22:48 Timolol Maleate 0.5 % Oph Rina 5 Ml Drbtl EYE-BOTH 1 drop BEDTIME REFUGIO Administration Topiramate 25 mg 09/21/22 21:00 09/21/22 20:03 Topiramate 25 Mg Tablet PO 25 mg BID REFUGIO Administration Trazodone HCl 25 mg 09/21/22 21:00 09/21/22 20:02 Trazodone Hcl 25 Mg Halftab PO 25 mg BEDTIME REFUGIO Administration Discontinued Medications Generic Name Dose Route Start Last Admin Trade Name Adelfoq PRN Reason Stop Dose Admin Cephalexin HCl 500 mg 09/21/22 11:45 09/21/22 12:06 Cephalexin 500 Mg Capsule PO 09/21/22 11:46 500 mg ONCE ONE Administration Cephalexin HCl 500 mg 09/21/22 13:00 09/21/22 13:22 Cephalexin 2,500 Mg/100 Ml Bottle PO Not Given QID REFUGIO <John French DO - Last Filed: 09/21/22 11:48> Medical Decision Making Medical Decision Making [facility] Narrative: 72-year-old female coming for a rest home with history of PE on Eliquis, dementia with concern for generalized weakness, poor p.o. intake and hypoxia at the rest home(See whatley). On arrival patient with no complaints. Patient is alert and confused which is her baseline. Lungs are clear. Patient on room air is 95%. Will obtain labs, EKG, chest x-ray, COVID screen. Spoke to our director of casework department. If patient is too weak to go back to the rest home she will need physical therapy evaluation and possible placement at a higher level of care <Jolly Bob NP - Last Filed: 09/20/22 17:26> Differential Diagnosis Differential Diagnoses: The differential diagnosis associated with the presentation includes <Jolly Bob NP - Last Filed: 09/20/22 17:26> Lab Data [facility] Lab Attestation statement: I reviewed the patient's lab results. <Jolly Bob NP - Last Filed: 09/20/22 17:26> Result Diagrams: 09/20/22 16:07 09/20/22 16:06 <Jolly Bob NP - Last Filed: 09/20/22 17:26> Labs: Lab Results 09/20/22 09/20/22 09/20/22 Range/Units 16:06 16:06 16:07 WBC 7.4 (4.8-10.8) X10*3/uL RBC 4.15 L (4.20-5.50) X10*6/uL Hgb 12.6 (12.0-16.0) g/dl Hct 38.5 (37.0-47.0) % MCV 92.8 (80.0-98.0) fL MCH 30.4 (27.0-33.0) pg MCHC 32.7 (31.0-35.0) g/dl RDW 12.1 (11.0-16.0) % Plt Count 169 (160-400) X10*3/uL MPV 9.7 (9.4-12.3) fL Immature Gran % (Auto) 0.3 (0.0-0.4) % Neut % (Auto) 72.0 (45-73) % Lymph % (Auto) 16.9 L (20-40) % [place] % (Auto) 9.9 (2-11) % Eos % (Auto) 0.8 (0-4) % Baso % (Auto) 0.1 (0-2) % Lymph # (Auto) 1.2 (1.2-4.9) X10*3/uL [place] # (Auto) 0.7 (0.1-1.2) X10*3/uL Eos # (Auto) 0.1 (0.0-0.4) X10*3/uL Baso # (Auto) 0.0 (0.0-0.2) X10*3/uL Abs Immat Gran (auto) 0.02 (0.00-0.03) X10*3/uL Absolute Neuts (auto) 5.3 (2.0-8.3) x10*3/uL Absolute Nucleated RBC 0.000 (0.0-0.012) X10*3/uL Nucleated RBC % (auto) 0.0 (0.0-0.2) /100WBC PT (10.0-13.1) SEC INR (0.9-1.1) Sodium 141 (135-145) mmol/L Potassium 4.0 (3.3-5.1) mmol/L Chloride 111 H (96-108) mmol/L Carbon Dioxide 23 (22-29) mmol/L Anion Gap 11 L (12-20) BUN 19 H (9-16) mg/dL Creatinine 0.81 (0.5-1.4) mg/dL Estim Creat Clear Calc 63.3 Estimated GFR > 60 Random Glucose 158 H (60-115) mg/dL Lactic Acid (0.5-2.0) mmol/L Calcium 9.0 (8.4-10.2) mg/dL Magnesium 1.9 (1.6-2.6) mg/dL Ferritin 228 (10-250) ng/mL Total Bilirubin 0.4 (0.0-1.0) mg/dL Direct Bilirubin 0.2 (0.0-0.5) mg/dL AST 12 (5-31) U/L ALT 8 (0-31) U/L Alkaline Phosphatase 73 (39-117) U/L Lactate Dehydrogenase 164 (122-220) U/L Troponin I High Sens (<3.5-17.0) ng/L C-Reactive Protein 4.55 H (< or = 0.50) mg/dL Total Protein 7.1 (6.5-8.0) g/dL Albumin 3.8 (3.5-5.0) g/dL Urine Color Urine Appearance Urine pH (5.0-9.0) Ur Specific [place] (1.005-1.025) Urine Protein (Neg-Trace) mg/dL Urine Glucose (UA) (Negative) mg/dL Urine Ketones (Negative) mg/dL Urine Blood (Negative) Urine Nitrite (Negative) Ur Leukocyte Esterase (Negative) Urine RBC (0-2) /HPF Urine WBC (0-5) /HPF Ur Squamous Epith Cells (0-2) /HPF Urine Bacteria (None Seen) Hyaline Casts (0-2) /LPF Influenza Type A (PCR) NEGATIVE (Negative) Influenza Type B (PCR) NEGATIVE (Negative) RSV RNA Qual (PCR) NEGATIVE (Negative) SARS-CoV-2 RNA (RT-PCR) POSITIVE A (Negative) 09/20/22 09/20/22 09/20/22 Range/Units 16:07 16:07 16:07 WBC (4.8-10.8) X10*3/uL RBC (4.20-5.50) X10*6/uL Hgb (12.0-16.0) g/dl Hct (37.0-47.0) % MCV (80.0-98.0) fL MCH (27.0-33.0) pg MCHC (31.0-35.0) g/dl RDW (11.0-16.0) % Plt Count (160-400) X10*3/uL MPV (9.4-12.3) fL Immature Gran % (Auto) (0.0-0.4) % Neut % (Auto) (45-73) % Lymph % (Auto) (20-40) % [place] % (Auto) (2-11) % Eos % (Auto) (0-4) % Baso % (Auto) (0-2) % Lymph # (Auto) (1.2-4.9) X10*3/uL [place] # (Auto) (0.1-1.2) X10*3/uL Eos # (Auto) (0.0-0.4) X10*3/uL Baso # (Auto) (0.0-0.2) X10*3/uL Abs Immat Gran (auto) (0.00-0.03) X10*3/uL Absolute Neuts (auto) (2.0-8.3) x10*3/uL Absolute Nucleated RBC (0.0-0.012) X10*3/uL Nucleated RBC % (auto) (0.0-0.2) /100WBC PT 14.3 H (10.0-13.1) SEC INR 1.2 H (0.9-1.1) Sodium (135-145) mmol/L Potassium (3.3-5.1) mmol/L Chloride (96-108) mmol/L Carbon Dioxide (22-29) mmol/L Anion Gap (12-20) BUN (9-16) mg/dL Creatinine (0.5-1.4) mg/dL Estim Creat Clear Calc Estimated GFR Random Glucose (60-115) mg/dL Lactic Acid 0.9 (0.5-2.0) mmol/L Calcium (8.4-10.2) mg/dL Magnesium (1.6-2.6) mg/dL Ferritin (10-250) ng/mL Total Bilirubin (0.0-1.0) mg/dL Direct Bilirubin (0.0-0.5) mg/dL AST (5-31) U/L ALT (0-31) U/L Alkaline Phosphatase (39-117) U/L Lactate Dehydrogenase (122-220) U/L Troponin I High Sens < 3.5 (<3.5-17.0) ng/L C-Reactive Protein (< or = 0.50) mg/dL Total Protein (6.5-8.0) g/dL Albumin (3.5-5.0) g/dL Urine Color Urine Appearance Urine pH (5.0-9.0) Ur Specific [place] (1.005-1.025) Urine Protein (Neg-Trace) mg/dL Urine Glucose (UA) (Negative) mg/dL Urine Ketones (Negative) mg/dL Urine Blood (Negative) Urine Nitrite (Negative) Ur Leukocyte Esterase (Negative) Urine RBC (0-2) /HPF Urine WBC (0-5) /HPF Ur Squamous Epith Cells (0-2) /HPF Urine Bacteria (None Seen) Hyaline Casts (0-2) /LPF Influenza Type A (PCR) (Negative) Influenza Type B (PCR) (Negative) RSV RNA Qual (PCR) (Negative) SARS-CoV-2 RNA (RT-PCR) (Negative) 09/20/22 Range/Units 18:04 WBC (4.8-10.8) X10*3/uL RBC (4.20-5.50) X10*6/uL Hgb (12.0-16.0) g/dl Hct (37.0-47.0) % MCV (80.0-98.0) fL MCH (27.0-33.0) pg MCHC (31.0-35.0) g/dl RDW (11.0-16.0) % Plt Count (160-400) X10*3/uL MPV (9.4-12.3) fL Immature Gran % (Auto) (0.0-0.4) % Neut % (Auto) (45-73) % Lymph % (Auto) (20-40) % [place] % (Auto) (2-11) % Eos % (Auto) (0-4) % Baso % (Auto) (0-2) % Lymph # (Auto) (1.2-4.9) X10*3/uL [place] # (Auto) (0.1-1.2) X10*3/uL Eos # (Auto) (0.0-0.4) X10*3/uL Baso # (Auto) (0.0-0.2) X10*3/uL Abs Immat Gran (auto) (0.00-0.03) X10*3/uL Absolute Neuts (auto) (2.0-8.3) x10*3/uL Absolute Nucleated RBC (0.0-0.012) X10*3/uL Nucleated RBC % (auto) (0.0-0.2) /100WBC PT (10.0-13.1) SEC INR (0.9-1.1) Sodium (135-145) mmol/L Potassium (3.3-5.1) mmol/L Chloride (96-108) mmol/L Carbon Dioxide (22-29) mmol/L Anion Gap (12-20) BUN (9-16) mg/dL Creatinine (0.5-1.4) mg/dL Estim Creat Clear Calc Estimated GFR Random Glucose (60-115) mg/dL Lactic Acid (0.5-2.0) mmol/L Calcium (8.4-10.2) mg/dL Magnesium (1.6-2.6) mg/dL Ferritin (10-250) ng/mL Total Bilirubin (0.0-1.0) mg/dL Direct Bilirubin (0.0-0.5) mg/dL AST (5-31) U/L ALT (0-31) U/L Alkaline Phosphatase (39-117) U/L Lactate Dehydrogenase (122-220) U/L Troponin I High Sens (<3.5-17.0) ng/L C-Reactive Protein (< or = 0.50) mg/dL Total Protein (6.5-8.0) g/dL Albumin (3.5-5.0) g/dL Urine Color Yellow Urine Appearance Cloudy Urine pH 5.5 (5.0-9.0) Ur Specific [place] 1.020 (1.005-1.025) Urine Protein Trace (Neg-Trace) mg/dL Urine Glucose (UA) Negative (Negative) mg/dL Urine Ketones Negative (Negative) mg/dL Urine Blood Negative (Negative) Urine Nitrite Negative (Negative) Ur Leukocyte Esterase Moderate (2+) H (Negative) Urine RBC 0-2 (0-2) /HPF Urine WBC >50 H (0-5) /HPF Ur Squamous Epith Cells 0-2 (0-2) /HPF Urine Bacteria 4+ (None Seen) Hyaline Casts 0-2 (0-2) /LPF Influenza Type A (PCR) (Negative) Influenza Type B (PCR) (Negative) RSV RNA Qual (PCR) (Negative) SARS-CoV-2 RNA (RT-PCR) (Negative) <Jolly Bob, REPORT WRITER - Last Filed: 09/20/22 17:26> Lab Results 09/20/22 09/20/22 09/20/22 Range/Units 16:06 16:06 16:07 WBC 7.4 (4.8-10.8) X10*3/uL RBC 4.15 L (4.20-5.50) X10*6/uL Hgb 12.6 (12.0-16.0) g/dl Hct 38.5 (37.0-47.0) % MCV 92.8 (80.0-98.0) fL MCH 30.4 (27.0-33.0) pg MCHC 32.7 (31.0-35.0) g/dl RDW 12.1 (11.0-16.0) % Plt Count 169 (160-400) X10*3/uL MPV 9.7 (9.4-12.3) fL Immature Gran % (Auto) 0.3 (0.0-0.4) % Neut % (Auto) 72.0 (45-73) % Lymph % (Auto) 16.9 L (20-40) % [place] % (Auto) 9.9 (2-11) % Eos % (Auto) 0.8 (0-4) % Baso % (Auto) 0.1 (0-2) % Lymph # (Auto) 1.2 (1.2-4.9) X10*3/uL [place] # (Auto) 0.7 (0.1-1.2) X10*3/uL Eos # (Auto) 0.1 (0.0-0.4) X10*3/uL Baso # (Auto) 0.0 (0.0-0.2) X10*3/uL Abs Immat Gran (auto) 0.02 (0.00-0.03) X10*3/uL Absolute Neuts (auto) 5.3 (2.0-8.3) x10*3/uL Absolute Nucleated RBC 0.000 (0.0-0.012) X10*3/uL Nucleated RBC % (auto) 0.0 (0.0-0.2) /100WBC PT (10.0-13.1) SEC INR (0.9-1.1) Sodium 141 (135-145) mmol/L Potassium 4.0 (3.3-5.1) mmol/L Chloride 111 H (96-108) mmol/L Carbon Dioxide 23 (22-29) mmol/L Anion Gap 11 L (12-20) BUN 19 H (9-16) mg/dL Creatinine 0.81 (0.5-1.4) mg/dL Estim Creat Clear Calc 63.3 Estimated GFR > 60 Random Glucose 158 H (60-115) mg/dL Lactic Acid (0.5-2.0) mmol/L Calcium 9.0 (8.4-10.2) mg/dL Magnesium 1.9 (1.6-2.6) mg/dL Ferritin 228 (10-250) ng/mL Total Bilirubin 0.4 (0.0-1.0) mg/dL Direct Bilirubin 0.2 (0.0-0.5) mg/dL AST 12 (5-31) U/L ALT 8 (0-31) U/L Alkaline Phosphatase 73 (39-117) U/L Lactate Dehydrogenase 164 (122-220) U/L Troponin I High Sens (<3.5-17.0) ng/L C-Reactive Protein 4.55 H (< or = 0.50) mg/dL Total Protein 7.1 (6.5-8.0) g/dL Albumin 3.8 (3.5-5.0) g/dL Urine Color Urine Appearance Urine pH (5.0-9.0) Ur Specific [place] (1.005-1.025) Urine Protein (Neg-Trace) mg/dL Urine Glucose (UA) (Negative) mg/dL Urine Ketones (Negative) mg/dL Urine Blood (Negative) Urine Nitrite (Negative) Ur Leukocyte Esterase (Negative) Urine RBC (0-2) /HPF Urine WBC (0-5) /HPF Ur Squamous Epith Cells (0-2) /HPF Urine Bacteria (None Seen) Hyaline Casts (0-2) /LPF Influenza Type A (PCR) NEGATIVE (Negative) Influenza Type B (PCR) NEGATIVE (Negative) RSV RNA Qual (PCR) NEGATIVE (Negative) SARS-CoV-2 RNA (RT-PCR) POSITIVE A (Negative) 09/20/22 09/20/22 09/20/22 Range/Units 16:07 16:07 16:07 WBC (4.8-10.8) X10*3/uL RBC (4.20-5.50) X10*6/uL Hgb (12.0-16.0) g/dl Hct (37.0-47.0) % MCV (80.0-98.0) fL MCH (27.0-33.0) pg MCHC (31.0-35.0) g/dl RDW (11.0-16.0) % Plt Count (160-400) X10*3/uL MPV (9.4-12.3) fL Immature Gran % (Auto) (0.0-0.4) % Neut % (Auto) (45-73) % Lymph % (Auto) (20-40) % [place] % (Auto) (2-11) % Eos % (Auto) (0-4) % Baso % (Auto) (0-2) % Lymph # (Auto) (1.2-4.9) X10*3/uL [place] # (Auto) (0.1-1.2) X10*3/uL Eos # (Auto) (0.0-0.4) X10*3/uL Baso # (Auto) (0.0-0.2) X10*3/uL Abs Immat Gran (auto) (0.00-0.03) X10*3/uL Absolute Neuts (auto) (2.0-8.3) x10*3/uL Absolute Nucleated RBC (0.0-0.012) X10*3/uL Nucleated RBC % (auto) (0.0-0.2) /100WBC PT 14.3 H (10.0-13.1) SEC INR 1.2 H (0.9-1.1) Sodium (135-145) mmol/L Potassium (3.3-5.1) mmol/L Chloride (96-108) mmol/L Carbon Dioxide (22-29) mmol/L Anion Gap (12-20) BUN (9-16) mg/dL Creatinine (0.5-1.4) mg/dL Estim Creat Clear Calc Estimated GFR Random Glucose (60-115) mg/dL Lactic Acid 0.9 (0.5-2.0) mmol/L Calcium (8.4-10.2) mg/dL Magnesium (1.6-2.6) mg/dL Ferritin (10-250) ng/mL Total Bilirubin (0.0-1.0) mg/dL Direct Bilirubin (0.0-0.5) mg/dL AST (5-31) U/L ALT (0-31) U/L Alkaline Phosphatase (39-117) U/L Lactate Dehydrogenase (122-220) U/L Troponin I High Sens < 3.5 (<3.5-17.0) ng/L C-Reactive Protein (< or = 0.50) mg/dL Total Protein (6.5-8.0) g/dL Albumin (3.5-5.0) g/dL Urine Color Urine Appearance Urine pH (5.0-9.0) Ur Specific [place] (1.005-1.025) Urine Protein (Neg-Trace) mg/dL Urine Glucose (UA) (Negative) mg/dL Urine Ketones (Negative) mg/dL Urine Blood (Negative) Urine Nitrite (Negative) Ur Leukocyte Esterase (Negative) Urine RBC (0-2) /HPF Urine WBC (0-5) /HPF Ur Squamous Epith Cells (0-2) /HPF Urine Bacteria (None Seen) Hyaline Casts (0-2) /LPF Influenza Type A (PCR) (Negative) Influenza Type B (PCR) (Negative) RSV RNA Qual (PCR) (Negative) SARS-CoV-2 RNA (RT-PCR) (Negative) 09/20/22 Range/Units 18:04 WBC (4.8-10.8) X10*3/uL RBC (4.20-5.50) X10*6/uL Hgb (12.0-16.0) g/dl Hct (37.0-47.0) % MCV (80.0-98.0) fL MCH (27.0-33.0) pg MCHC (31.0-35.0) g/dl RDW (11.0-16.0) % Plt Count (160-400) X10*3/uL MPV (9.4-12.3) fL Immature Gran % (Auto) (0.0-0.4) % Neut % (Auto) (45-73) % Lymph % (Auto) (20-40) % [place] % (Auto) (2-11) % Eos % (Auto) (0-4) % Baso % (Auto) (0-2) % Lymph # (Auto) (1.2-4.9) X10*3/uL [place] # (Auto) (0.1-1.2) X10*3/uL Eos # (Auto) (0.0-0.4) X10*3/uL Baso # (Auto) (0.0-0.2) X10*3/uL Abs Immat Gran (auto) (0.00-0.03) X10*3/uL Absolute Neuts (auto) (2.0-8.3) x10*3/uL Absolute Nucleated RBC (0.0-0.012) X10*3/uL Nucleated RBC % (auto) (0.0-0.2) /100WBC PT (10.0-13.1) SEC INR (0.9-1.1) Sodium (135-145) mmol/L Potassium (3.3-5.1) mmol/L Chloride (96-108) mmol/L Carbon Dioxide (22-29) mmol/L Anion Gap (12-20) BUN (9-16) mg/dL Creatinine (0.5-1.4) mg/dL Estim Creat Clear Calc Estimated GFR Random Glucose (60-115) mg/dL Lactic Acid (0.5-2.0) mmol/L Calcium (8.4-10.2) mg/dL Magnesium (1.6-2.6) mg/dL Ferritin (10-250) ng/mL Total Bilirubin (0.0-1.0) mg/dL Direct Bilirubin (0.0-0.5) mg/dL AST (5-31) U/L ALT (0-31) U/L Alkaline Phosphatase (39-117) U/L Lactate Dehydrogenase (122-220) U/L Troponin I High Sens (<3.5-17.0) ng/L C-Reactive Protein (< or = 0.50) mg/dL Total Protein (6.5-8.0) g/dL Albumin (3.5-5.0) g/dL Urine Color Yellow Urine Appearance Cloudy Urine pH 5.5 (5.0-9.0) Ur Specific [place] 1.020 (1.005-1.025) Urine Protein Trace (Neg-Trace) mg/dL Urine Glucose (UA) Negative (Negative) mg/dL Urine Ketones Negative (Negative) mg/dL Urine Blood Negative (Negative) Urine Nitrite Negative (Negative) Ur Leukocyte Esterase Moderate (2+) H (Negative) Urine RBC 0-2 (0-2) /HPF Urine WBC >50 H (0-5) /HPF Ur Squamous Epith Cells 0-2 (0-2) /HPF Urine Bacteria 4+ (None Seen) Hyaline Casts 0-2 (0-2) /LPF Influenza Type A (PCR) (Negative) Influenza Type B (PCR) (Negative) RSV RNA Qual (PCR) (Negative) SARS-CoV-2 RNA (RT-PCR) (Negative) <John French DO - Last Filed: 09/21/22 11:48> Independent Interpretation I performed an independent interpretation of an: EKG and Plain X-Ray (Independently reviewed the x-ray which shows no acute finding) <Jolly Bob NP - Last Filed: 09/20/22 17:26> Interpretation: I independently reviewed the EKG which shows normal sinus rhythm with a rate of 67 <Jolly Bob NP - Last Filed: 09/20/22 17:26> Radiology Impression Discussion of test interpretation with radiology: I have reviewed the radiologist's reading. <Jolly Bob NP - Last Filed: 09/20/22 17:26> Radiologist Impression: FINDINGS: Frontal view is slightly rotated with patient's chin overlying the left lung apex. The heart is normal in size. The vascularity is normal. There is no vascular congestion, airspace consolidation, or groundglass opacity. The costophrenic sulci are clear. The hilar and mediastinal contours and visualized bony structures are unremarkable. XR/XR chest 2V IMPRESSION: Unremarkable examination. <Jolly Bob NP - Last Filed: 09/20/22 17:26> Independent Historian Clinical information obtained from an independent historian. History obtained from or confirmed by: EMS <KIMBERLY Weinberg Last Filed: 09/20/22 17:26> Discharge Plan Discharge Clinical Impression: COVID-19, Weakness <Jolly Bob NP - Last Filed: 09/20/22 17:26> Patient Disposition: Still a Patient <Jolly Bob NP - Last Filed: 09/20/22 17:26> Prescriptions: No Action apixaban 5 mg Tablet 5 mg PO BID topiramate 25 mg Tablet 25 mg PO BID duloxetine 30 mg Capsule,Delayed Release(Dr/Ec) 30 mg PO BEDTIME olanzapine 10 mg Tablet 10 mg PO BEDTIME simvastatin 10 mg Tablet 10 mg PO BEDTIME trazodone 50 mg Tablet 25 mg BEDTIME brimonidine 0.2 % Drops 1 drp ophthalmic (eye) DAILY timolol maleate 0.5 % Drops 1 drp OPHTHALMIC (EYE) BEDTIME acetaminophen 325 mg Tablet 650 mg PO Q6H MDD PAIN/HEADACHE PRN (Reason: Dehydration) Januvia 100 mg Tablet 100 mg PO DAILY Qty: 30 0RF melatonin 5 mg Tablet 5 mg PO BEDTIME PRN (Reason: Insomnia) polyethylene glycol 3350 [Miralax] 17 gram/dose powder 17 g PO DAILY Qty: 119 0RF docusate sodium [Colace] 100 mg capsule 100 mg PO BID Qty: 30 0RF insulin glargine [Basaglar KwikPen U-100 Insulin] 100 unit/mL (3 mL) insulin pen 17 unit subcut BEDTIME senna 8.6 mg capsule 17.2 mg PO BEDTIME <Jolly Bob NP - Last Filed: 09/20/22 17:26> Referrals: [facility] [Outside] <Jolly Bob NP - Last Filed: 09/20/22 17:26> ED Observation ED Observation Admit MDM: Case managment remains involved remains confused daily medications ordered for the patient no new issues still pending placement option. <John French DO - Last Filed: 09/21/22 11:48>
[2022-09-20 16:33] LABS: MANUAL DIFF FLAG NO
[2022-09-20 16:35] LABS: Basophils Percent Auto 0.1 % (0-2); Eosinophils Absolute Auto 0.1 X10*3/uL (0.0-0.4); Eosinophils Percent Auto 0.8 % (0-4); Hematocrit 38.5 % (37.0-47.0); Hemoglobin 12.6 g/dl (12.0-16.0); Imm Gran Abs Auto 0.02 X10*3/uL (0.00-0.03); Imm Gran Pct Auto 0.3 % (0.0-0.4); Lymphocytes Absolute Auto 1.2 X10*3/uL (1.2-4.9); Lymphocytes Percent Auto 16.9 % (20-40); Mean Corpuscular HGB Conc 32.7 g/dl (31.0-35.0); Mean Corpuscular Hemoglobin 30.4 pg (27.0-33.0); Mean Corpuscular Volume 92.8 fL (80.0-98.0); Mean Platelet Volume 9.7 fL (9.4-12.3); Monocytes Absolute Auto 0.7 X10*3/uL (0.1-1.2); Monocytes Percent Auto 9.9 % (2-11); Neutrophils Absolute Auto 5.3 x10*3/uL (2.0-8.3); Platelet Count 169 X10*3/uL (160-400); Red Blood Count 4.15 X10*6/uL (4.20-5.50); Red Cell Distribution Width 12.1 % (11.0-16.0); White Blood Count 7.4 X10*3/uL (4.8-10.8)
[2022-09-20 16:43] VITALS: BP 103/53; PULSE 69; RESP 18; TEMP 37.1; O2SAT 92
[2022-09-20 16:48] LABS: INTERNATIONAL NORM RATIO 1.2 (0.9-1.1); Lactic Acid 0.9 mmol/L (0.5-2.0); Prothrombin Time 14.3 SEC (10.0-13.1)
[2022-09-20 17:00] LABS: Alanine Aminotransferase 8 U/L (0-31); Albumin Level 3.8 g/dL (3.5-5.0); Alkaline Phosphatase 73 U/L (39-117); Anion Gap 11 (12-20); Aspartate Amino Transferase 12 U/L (5-31); Bilirubin Direct 0.2 mg/dL (0.0-0.5); Bilirubin Total 0.4 mg/dL (0.0-1.0); Blood Urea Nitrogen 19 mg/dL (9-16); C Reactive Protein 4.55 mg/dL (< or = 0.50); Carbon Dioxide 23 mmol/L (22-29); Chloride 111 mmol/L (96-108); Creatinine Clr Calc Pharmacy 63.3; Estimated Glomerular Filt Rate > 60; Glucose Random 158 mg/dL (60-115); Lactate Dehydrogenase 164 U/L (122-220); Magnesium 1.9 mg/dL (1.6-2.6); Sodium 141 mmol/L (135-145); Total Protein 7.1 g/dL (6.5-8.0)
[2022-09-20 17:04] LABS: Troponin-I High Sensitivity < 3.5 ng/L (<3.5-17.0)
[2022-09-20 17:15] LABS: Influenza A PCR NEGATIVE (Negative); Influenza B PCR NEGATIVE (Negative); Resp Syncy Virus RNA Qual PCR NEGATIVE (Negative); SARS COV2 PCR INHOUSE POSITIVE (Negative)
[2022-09-20 17:17] LABS: Ferritin 228 ng/mL (10-250)
[2022-09-20 18:26] LABS: Appearance Urine Cloudy; Color Urine Yellow; Glucose Urine UA Negative (Negative); Leukocyte Esterase Urine Moderate (2+) (Negative); Nitrite Urine Negative (Negative); PH 5.5 (5.0-9.0); UMIC TRIGGER UACC YES; Urine Blood Negative (Negative); Urine Ketones Negative (Negative); Urine Protein Trace mg/dL (Neg-Trace)
[2022-09-20 18:28] LABS: Bacteria Urine 4+ (None Seen); Hyaline Casts Urine 0-2 /LPF (0-2); RBC Urine 0-2 /HPF (0-2); Squamous Epithelial Cell Urine 0-2 /HPF (0-2); UACC Culture Trigger YES; WBC Urine >50 /HPF (0-5)
[2022-09-20 19:15] VITALS: BP 111/52; PULSE 80; RESP 19; TEMP 37.1; O2SAT 97
--- NOTE | 2022-09-20 19:51 | PHA.MEDREC ---
Pharmacy Consult ? Medication Reconciliation Pharmacy has completed the medication reconciliation. Received med list from [facility]. Abby Lara, PharmD
[2022-09-20 20:01] VITALS: BP 111/52; PULSE 76; RESP 18; TEMP 37.6; O2SAT 95
--- NOTE | 2022-09-20 20:02 | PC.NURSE ---
Patient is alert and oriented x3. Denies to be in pain. Vitals are stable, no signs of resp distress. Safety maintained. Patient is resting peacefully with the call flood in reach.
[2022-09-20 23:53] VITALS: BP 113/59; PULSE 76; RESP 16; O2SAT 94
[2022-09-21] VITALS (8 sets, daily range): BP systolic 106–127; BP diastolic 53–61; PULSE 70–86; RESP 12–20; TEMP 36.7–37; O2SAT 93–96
--- NOTE | 2022-09-21 04:05 | PC.NURSE ---
Patient is alert and oriented to her baseline. Does not appear to be in pain and discomfort. Patient pulled out her IV, no redness to area noted. Doctor notified. Patient skin is moist and pink. No signs of resp distress noted. Safety maintained, patient resting peacefully with the call flood in reach.
--- NOTE | 2022-09-21 11:35 | PC.NURSE ---
pt is alert but pleasantly confused at baseline, pt able to state her birthday and that she is in a hospital but not the name of the hospital, pt ls diminished on the bases but sating at 94% on room air, pt denies pain pt is resting comfortably and awaiting case management
[2022-09-21] MEDS: cephALEXin 500 MG CAPSULE PO ×3 (12:06→20:04)
--- NOTE | 2022-09-21 13:42 | MHC.CM.ED ---
Received case management consult overnight. Patient is a [facility] resident. Tested positive for Covid on 09/19 with a home rapid test. Patient came to [facility] ER due to weakness. Patient is positive for Covid. Does not meet inpatient admission criteria. Physical therapy eval completed. Short term rehab is recommended. Since patient is positive for Covid, anticipate she will be difficult to place. Referral broadcasted within 20 miles to all facilities that can accept Covid positive patients. [facility] if an updated copy of patient's Yong's order is obtained and an intent to Admit is filed with the court. T/W left message for patient's guardian, Bonny, via telephone at [phone]. Continue to monitor for d/c needs.
--- NOTE | 2022-09-21 14:21 | MHC.CM.ED ---
Addendum entered by Karey Andersen 09/21/22 15:36: Patient is scheduled to go to [facility] on 09/22 at 11am. Kristine GOMEZ booked. [facility] with chart. Original Note: Received return telephone call from patient's guardian, Bonny. Bonny is agreeable to rehab at [facility]. Bonny will fax an updated copy of patient's Yong's order on 09/22[facility] Continue to monitor for d/c needs.
--- NOTE | 2022-09-21 14:38 | PC.NURSE ---
report received from EVERTON Hollis. Pt is alert on stretcher eating lunch at this time. Pt is aware of birthday and location but is otherwise pleasantly confused. Pt reports no pain and has no other complaints at this time
--- NOTE | 2022-09-21 19:54 | PC.NURSE ---
PCT Lazarus placed purewick in pt for incontinence. Pt tolerating well at this time
[2022-09-21] MEDS: traZODone HCL 25 MG HALFTAB PO (20:02)
[2022-09-21] MEDS: Atorvastatin Calcium 10 MG TABLET PO (20:03)
[2022-09-21] MEDS: Topiramate 25 MG TABLET PO (20:03)
[2022-09-21] MEDS: Apixaban 5 MG TABLET PO (20:04)
[2022-09-21] MEDS: DULoxetine HCl 30 MG CAPSULE.DR PO (20:05)
[2022-09-21] MEDS: Docusate Sodium 100 MG CAPSULE PO (20:05)
[2022-09-21] MEDS: OLANZapine 10 MG TABLET PO (20:05)
[2022-09-21] MEDS: Sennosides 8.6 MG TABLET 17.2 MG PO (20:06)
[2022-09-21] MEDS: Insulin Glargine,Hum.rec.anlog 100 UNIT/ML 10 ML VIAL 17 UNIT SUBCUT (20:06)
--- NOTE | 2022-09-21 22:45 | PC.NURSE ---
This RN went in to give pt night medications and noticed pt had no output in purewick. Pt states she feels like she has to pee but cannot. Pt reported lower abdominal pain 3/10 pressure like. Pt states she has not voided in the last day. PCT Lazarus performed a bladder scan and pt had 982 mL of urine in her bladder. This RN requested a straight cath from Dr. Funes who then proposed a silver cath since the pt has not been voiding appropriately. This RN placed a silver cath in pt. 1000mL of urine immediately came out. Pt now states she feels relief in her pain
[2022-09-21] MEDS: timoloL maleate 0.5 % Oph Sol 5 ML DRBTL 1 DROP EYE-BOTH (22:48)
[2022-09-22] VITALS: BP 122/60; PULSE 76; RESP 16; TEMP 36.8; O2SAT 95
--- NOTE | 2022-09-22 01:42 | PC.NURSE ---
pt awake, states she does not want to sleep at this time
--- NOTE | 2022-09-22 05:10 | PC.NURSE ---
pt sleeping comfortably on stretcher at this time. silver catheter draining well. this rn emptied 1600ml from catheter bag at this time. urine straw in color with no odor
[2022-09-22 06:00] VITALS: BP 110/60; PULSE 70; RESP 18; TEMP 37.2; O2SAT 96
[2022-09-22 07:36] VITALS: BP 113/68; PULSE 80; RESP 14; TEMP 37; O2SAT 94
[2022-09-22] MEDS: cephALEXin 500 MG CAPSULE PO ×2 (09:02→13:23)
[2022-09-22] MEDS: Docusate Sodium 100 MG CAPSULE PO (09:02)
[2022-09-22] MEDS: Apixaban 5 MG TABLET PO (09:02)
[2022-09-22] MEDS: Topiramate 25 MG TABLET PO (09:02)
[2022-09-22] MEDS: polyethylene glycoL 3350 17 GM POWD.PACK PO (09:02)
[2022-09-22 11:36] VITALS: BP 100/83; PULSE 84; RESP 14; TEMP 37; O2SAT 97
--- NOTE | 2022-09-22 11:52 | MHC.CM.ED ---
Addendum entered by Shari Stephenson 09/22/22 14:31: Received notification from [facility] that pt has all necessary PASSR and [facility] forms needed to transfer today at 4pm. Call placed to pt's guardian to inform. Pt and ED staff made aware of transfer via [employer]. Original Note: Received call from Shabana at [facility]. She states that pt has triggered for a PASSR per her SW and that the request had not been submitted in a timely fashion so a 5 hour turn around time cannot be guarenteed. [facility] transport changed from 11 am to a tentative 4pm in the hopes the PASSR is received by the facility. In addition, Shabana is requesting a copy of the [facility] order: this was uploaded and sent via [employer]. At this time, pt should transfer to [facility] today at 4p PROVIDING: the PASSR is received. If this does not occur, pt will have to board in the ED until the PASSR is completed and received by the SNF. ED PA and RN aware of plan. ED CM to follow.
== END 2022-09-22 17:46 | disposition home or self-care (01) ==
PROVIDERS: Nurse Practitioner Family; Emergency Provider Emergency Medicine Emergency Medical Services; PCP Nurse Practitioner Adult Health
DX: U07.1 COVID-19 (principal); R53.1 Weakness; N39.0 Urinary tract infection, site not specified; B96.20 Unspecified Escherichia coli [E. coli] as the cause of diseases classified elsewhere; Z86.711 Personal history of pulmonary embolism; Z86.718 Personal history of other venous thrombosis and embolism; Z87.891 Personal history of nicotine dependence; Z79.01 Long term (current) use of anticoagulants; Z79.02 Long term (current) use of antithrombotics/antiplatelets; Z79.899 Other long term (current) drug therapy
CPT/HCPCS: 0241U; 36415; 51702; 71046; 80048; 80076; 81001; 82728; 83605; 83615; 83735; 84484; 85025; 85610; 86140; 87040; 87086; 87088; 87186; 93005; 97162; 99285

== ENCOUNTER 2023-03-22 07:27 | Emergency (ER) | payer MEDICARE, MEDICAID, SELFPAY ==
[2023-03-22] VITALS (8 sets, daily range): BP systolic 101–128; BP diastolic 41–68; PULSE 73–97; RESP 12–20; TEMP 36.1–38; O2SAT 92–97; BMI 26.8
--- NOTE | 2023-03-22 07:42 | ED.FEVER ---
HPI - Fever General Chief Complaint: Fever Stated Complaint: FEVER 102.7,SORE THROAT,WEAK TIRED FROM SNF Time Seen by Provider: 03/22/23 07:32 History of Present Illness HPI Narrative: Patient is a 73-year-old female with a history of blood clots in the past. Currently on Eliquis. From a senior living. Presented today with having fever generalized malaise more lethargy than usual. Sent in for further evaluation. Patient unable to give detailed history. Related Data Home Medications Medication Instructions Recorded Confirmed acetaminophen 325 mg tablet 650 mg PO Q6H PRN Dehydration 02/26/22 09/20/22 apixaban 5 mg tablet 5 mg PO BID 02/26/22 09/20/22 brimonidine 0.2 % eye drops 1 drp ophthalmic (eye) DAILY 02/26/22 09/20/22 duloxetine 30 mg capsule,delayed 30 mg PO BEDTIME 02/26/22 09/20/22 release olanzapine 10 mg tablet 10 mg PO BEDTIME 02/26/22 09/20/22 simvastatin 10 mg tablet 10 mg PO BEDTIME 02/26/22 09/20/22 timolol maleate 0.5 % eye drops 1 drp ophthalmic (eye) BEDTIME 02/26/22 09/20/22 topiramate 25 mg tablet 25 mg PO BID 02/26/22 09/20/22 trazodone 50 mg tablet 25 mg BEDTIME 02/26/22 09/20/22 melatonin 5 mg tablet 5 mg PO BEDTIME PRN Insomnia 04/05/22 09/20/22 insulin glargine 100 unit/mL (3 17 unit subcut BEDTIME 09/20/22 09/20/22 mL) subcutaneous pen (Basaglar KwikPen U-100 Insulin) sennosides 8.6 mg capsule (senna) 17.2 mg PO BEDTIME 09/20/22 09/20/22 Previous Rx's Medication Instructions Recorded sitagliptin phosphate 100 mg 100 mg PO DAILY #30 tabs 03/03/22 tablet (Januvia) docusate sodium 100 mg capsule 100 mg PO BID #30 caps 07/09/22 (Colace) polyethylene glycol 3350 17 17 g PO DAILY #119 grams 07/09/22 gram/dose oral powder (Miralax) cefpodoxime 200 mg tablet 200 mg PO Q12H uti 7 days #14 tabs 03/22/23 Allergies Allergy/AdvReac Type Severity Reaction Status Date / Time Penicillins Allergy Hives Verified 03/22/23 08:29 Review of Systems Review of Systems: Positive fever patient unable to give detailed review systems secondary to mental status [facility] Past Medical History Attestation statement: The following information was validated with the patient. Medical History (Updated 03/22/23 @ 12:42 by Barbra Calderon MD) Acute embolism and thrombosis of unspecified deep veins of unspecified lower extremity Acute onset vascular dementia without behavioral disturbance Coronary artery disease DVT (deep venous thrombosis) Glaucoma Neuropathy Non-insulin dependent diabetes mellitus Other pulmonary embolism without acute cor pulmonale Pulmonary embolism Type 2 diabetes mellitus with diabetic neuropathy, unspecified Type 2 diabetes mellitus without complications Vascular dementia Social History Social History Household Members: Other Household Members Other:: Rest Home Housing: Residential Do you presently have visiting nurse or other home services: Yes Unable to assess alcohol history related to: Unable to respond Alcohol intake: never Patient Tobacco Use Status: Former Tobacco user Smoked in Last 30 Days: No Use of substances other than those prescribed or required for medical reasons: No Advance Directives: Yes Advance Directives Information Provided: No Advance Directives on File: No service: No Physical Exam Vital Signs: Vital Signs: Last Vital Signs Temp 97.0 F 03/22/23 12:01 Pulse 73 03/22/23 12:01 Resp 12 03/22/23 12:01 BP 118/41 L 03/22/23 12:01 Pulse Ox 97 03/22/23 12:01 O2 Del Method Room Air 03/22/23 12:01 BMI result Body Mass Index 26.8 Appearance: Alert. Oriented X2 to self and to place. No acute distress. Eyes: Pupils equal, round and reactive to light. ENT: Pharynx normal. Neck: Normal inspection. Neck supple. No lymph nodes noted. No crepitus CVS: Normal heart rate and rhythm. Pulses normal. Normal S1 and S2 Respiratory: No respiratory distress. Breath sounds normal. No Wheezing. No rales Abdomen: Soft and nontender. No rigidity. No distention. good BS x4 Skin: Skin warm and dry. Normal skin color. Normal skin turgor. Extremities: No lower extremity edema. Neurovascular intact to all extremities. No Lacerations. No Rash Neuro: Oriented X 2 to self and to place, No motor deficit. No sensory deficit. Moving all extermities. No slurred speech Medications Administered Discontinued Medications Generic Name Dose Route Start Last Admin Trade Name Judy PRN Reason Stop Dose Admin Acetaminophen 650 mg 03/22/23 07:39 03/22/23 08:05 Acetaminophen Supp 650 Mg Supp.Rect MD 03/22/23 07:40 650 mg ONCE ONE Administration Sodium Chloride 1,000 mls @ 999 mls/hr 03/22/23 07:45 03/22/23 09:06 Ns IV 03/22/23 08:45 Infused .Q1H1M REFUGIO Infusion Ceftriaxone Sodium 1 gm/ 50 mls @ 100 mls/hr 03/22/23 08:59 03/22/23 09:55 Sodium Chloride IV 03/22/23 09:28 Infused ONCE ONE Infusion Medical Decision Making Medical Decision Making [facility] Narrative: Patient is 73 years old presents today with having fever generalized malaise. Patient is on Eliquis. To my interpretation of patient's EKG is sinus heart rate is 90 MD QRS and QT within normal limits there is no acute ST segment elevation. Patient's chest x-ray by my interpretation showed no evidence of pneumonia or pneumothorax. No rib fracture. Her white count is 10. Her hemoglobin is 10.5. Given Tylenol for fever temperature came down nicely. Her lactate is 0.8 there is no evidence of sepsis. Patient's urine was grossly infected. Previous cultures were reviewed. Sensitive to Rocephin. Question rash allergy. Patient given the dose of Rocephin and monitor in the emergency department. No ill affects. Will discharge patient home. And continue antibiotics. Close follow-up on an outpatient basis. Differential Diagnosis Differential Diagnoses: The differential diagnosis associated with the presentation includes Pneumonia, urinary tract infection, viral syndrome Admission/Observation Consideration of admission/observation: Escalation of care including admission/observation considered Patient monitor in the emergency department. Grossly not septic. Lactate is normal. Heart rate is low. Positive fever. Symptoms likely from urinary tract infection. A dose of Rocephin was given. Will discharge patient home. Patient tolerated p.o. in the emergency department. Lab Data [facility] Lab Attestation statement: I reviewed the patient's lab results. 03/22/23 07:45 03/22/23 07:45 Labs: Lab Results 03/22/23 03/22/23 03/22/23 Range/Units 07:45 07:45 07:46 WBC 9.9 (4.8-10.8) X10*3/uL RBC 3.51 L (4.20-5.50) X10*6/uL Hgb 10.5 L (12.0-16.0) g/dl Hct 31.8 L (37.0-47.0) % MCV 90.6 (80.0-98.0) fL MCH 29.9 (27.0-33.0) pg MCHC 33.0 (31.0-35.0) g/dl RDW 12.5 (11.0-16.0) % Plt Count 185 (160-400) X10*3/uL MPV 9.5 (9.4-12.3) fL Immature Gran % (Auto) 0.4 (0.0-0.4) % Neut % (Auto) 70.8 (45-73) % Lymph % (Auto) 17.4 L (20-40) % [place] % (Auto) 10.6 (2-11) % Eos % (Auto) 0.7 (0-4) % Baso % (Auto) 0.1 (0-2) % Lymph # (Auto) 1.7 (1.2-4.9) X10*3/uL [place] # (Auto) 1.1 (0.1-1.2) X10*3/uL Eos # (Auto) 0.1 (0.0-0.4) X10*3/uL Baso # (Auto) 0.0 (0.0-0.2) X10*3/uL Abs Immat Gran (auto) 0.04 H (0.00-0.03) X10*3/uL Absolute Neuts (auto) 7.0 (2.0-8.3) x10*3/uL Absolute Nucleated RBC 0.000 (0.0-0.012) X10*3/uL Nucleated RBC % (auto) 0.0 (0.0-0.2) /100WBC Sodium 143 (135-145) mmol/L Potassium 3.5 (3.3-5.1) mmol/L Chloride 112 H (96-108) mmol/L Carbon Dioxide 23 (22-29) mmol/L Anion Gap 12 (12-20) BUN 15 (9-16) mg/dL Creatinine 0.84 (0.5-1.4) mg/dL Estim Creat Clear Calc 64.0 Estimated GFR > 60 Random Glucose 176 H (60-115) mg/dL Lactic Acid (0.5-2.0) mmol/L Calcium 9.3 (8.4-10.2) mg/dL Total Bilirubin 0.5 (0.0-1.0) mg/dL Direct Bilirubin 0.2 (0.0-0.5) mg/dL AST 11 (5-31) U/L ALT 11 (0-31) U/L Alkaline Phosphatase 78 (39-117) U/L Total Protein 7.1 (6.5-8.0) g/dL Albumin 3.5 (3.5-5.0) g/dL Urine Color Urine Appearance Urine pH (5.0-9.0) Ur Specific [place] (1.005-1.025) Urine Protein (Neg-Trace) mg/dL Urine Glucose (UA) (Negative) mg/dL Urine Ketones (Negative) mg/dL Urine Blood (Negative) Urine Nitrite (Negative) Ur Leukocyte Esterase (Negative) Urine RBC (0-2) /HPF Urine WBC (0-5) /HPF Ur Squamous Epith Cells (0-2) /HPF Urine Bacteria (None Seen) Hyaline Casts (0-2) /LPF COVID-19 (GONZALEZ) Negative (Negative) COVID-19 Clin Com See Note 03/22/23 03/22/23 Range/Units 07:46 08:26 WBC (4.8-10.8) X10*3/uL RBC (4.20-5.50) X10*6/uL Hgb (12.0-16.0) g/dl Hct (37.0-47.0) % MCV (80.0-98.0) fL MCH (27.0-33.0) pg MCHC (31.0-35.0) g/dl RDW (11.0-16.0) % Plt Count (160-400) X10*3/uL MPV (9.4-12.3) fL Immature Gran % (Auto) (0.0-0.4) % Neut % (Auto) (45-73) % Lymph % (Auto) (20-40) % [place] % (Auto) (2-11) % Eos % (Auto) (0-4) % Baso % (Auto) (0-2) % Lymph # (Auto) (1.2-4.9) X10*3/uL [place] # (Auto) (0.1-1.2) X10*3/uL Eos # (Auto) (0.0-0.4) X10*3/uL Baso # (Auto) (0.0-0.2) X10*3/uL Abs Immat Gran (auto) (0.00-0.03) X10*3/uL Absolute Neuts (auto) (2.0-8.3) x10*3/uL Absolute Nucleated RBC (0.0-0.012) X10*3/uL Nucleated RBC % (auto) (0.0-0.2) /100WBC Sodium (135-145) mmol/L Potassium (3.3-5.1) mmol/L Chloride (96-108) mmol/L Carbon Dioxide (22-29) mmol/L Anion Gap (12-20) BUN (9-16) mg/dL Creatinine (0.5-1.4) mg/dL Estim Creat Clear Calc Estimated GFR Random Glucose (60-115) mg/dL Lactic Acid 0.8 (0.5-2.0) mmol/L Calcium (8.4-10.2) mg/dL Total Bilirubin (0.0-1.0) mg/dL Direct Bilirubin (0.0-0.5) mg/dL AST (5-31) U/L ALT (0-31) U/L Alkaline Phosphatase (39-117) U/L Total Protein (6.5-8.0) g/dL Albumin (3.5-5.0) g/dL Urine Color Yellow Urine Appearance Cloudy Urine pH 6.0 (5.0-9.0) Ur Specific [place] 1.015 (1.005-1.025) Urine Protein Trace (Neg-Trace) mg/dL Urine Glucose (UA) Negative (Negative) mg/dL Urine Ketones Negative (Negative) mg/dL Urine Blood Negative (Negative) Urine Nitrite Positive H (Negative) Ur Leukocyte Esterase Large (3+) H (Negative) Urine RBC 0-2 (0-2) /HPF Urine WBC >50 H (0-5) /HPF Ur Squamous Epith Cells 3-5 (0-2) /HPF Urine Bacteria 4+ (None Seen) Hyaline Casts 0-2 (0-2) /LPF COVID-19 (GONZALEZ) (Negative) COVID-19 Clin Com Independent Interpretation I performed an independent interpretation of an: EKG and Plain X-Ray Interpretation: My interpretation of patient's EKG showed a sinus rhythm heart rate is 90 MD QRS QT within normal limits no ST segment elevation. My interpretation of patient's chest x-ray is grossly negative for pneumonia. Chronic Conditions Dementia Social Determinants Patient in a senior living environment Discharge Plan Discharge Clinical Impression: Acute UTI Patient Disposition: Home, Self-Care Instructions: Urinary Tract Infection in Older Adults (ED) Prescriptions: New cefpodoxime 200 mg tablet 200 mg PO Q12H 7 Days Qty: 14 0RF Rx Instructions: must administer with a meal/food No Action apixaban 5 mg Tablet 5 mg PO BID topiramate 25 mg Tablet 25 mg PO BID duloxetine 30 mg Capsule,Delayed Release(Dr/Ec) 30 mg PO BEDTIME olanzapine 10 mg Tablet 10 mg PO BEDTIME simvastatin 10 mg Tablet 10 mg PO BEDTIME trazodone 50 mg Tablet 25 mg BEDTIME brimonidine 0.2 % Drops 1 drp ophthalmic (eye) DAILY timolol maleate 0.5 % Drops 1 drp OPHTHALMIC (EYE) BEDTIME acetaminophen 325 mg Tablet 650 mg PO Q6H MDD PAIN/HEADACHE PRN (Reason: Dehydration) Januvia 100 mg Tablet 100 mg PO DAILY Qty: 30 0RF melatonin 5 mg Tablet 5 mg PO BEDTIME PRN (Reason: Insomnia) polyethylene glycol 3350 [Miralax] 17 gram/dose powder 17 g PO DAILY Qty: 119 0RF docusate sodium [Colace] 100 mg capsule 100 mg PO BID Qty: 30 0RF insulin glargine [Basaglar KwikPen U-100 Insulin] 100 unit/mL (3 mL) insulin pen 17 unit subcut BEDTIME senna 8.6 mg capsule 17.2 mg PO BEDTIME Referrals: Phuong Hurst NP [Primary Care Provider] - 2 days
--- NOTE | 2023-03-22 08:39 | PC.NURSE ---
pt alert and oriented to self, vss, nsr on supervisor communications and signals, tylenol and fluids administered per provider order, 16g/10ml silver catheter placed without complications showing cloudy yellow urine, urine sent to lab, pt resting comfortably, call flood placed within reach, will continue to monitor.
--- NOTE | 2023-03-22 09:27 | PC.NURSE ---
pt alert and oriented to self, vss, nsr on the gambling monitor, abx administered per provider order, will continue to monitor.
--- NOTE | 2023-03-22 10:21 | PC.NURSE ---
pt alert and oriented to self, nsr on the linking machine operator, vital signs stable, sensor states 97.5 core temp, pt verbalizes 0 pain, call flood placed within reach.
--- NOTE | 2023-03-22 13:06 | PC.NURSE ---
report called to joellen upton and chacorta
--- NOTE | 2023-03-22 13:29 | PC.NURSE ---
pt alert and oriented to self, vss, nsr on the environmental monitoring specialist, pain reassessed stating 0 pain, pt pending discharge waiting for EMS transport, call flood placed within reach, will continue to monitor.
--- NOTE | 2023-03-22 13:58 | PC.NURSE ---
pt alert and oriented to self, vss, nsr on the industrial hygiene manager, silver catheter d/c'd per dr. castellanos's order, pt placed in [facility], will continue to monitor.
== END 2023-03-22 14:45 ==
PROVIDERS: Emergency Provider Emergency Medicine Emergency Medical Services; PCP Nurse Practitioner Adult Health
DX: N39.0 Urinary tract infection, site not specified (principal); B96.20 Unspecified Escherichia coli [E. coli] as the cause of diseases classified elsewhere; Z20.822 Contact with and (suspected) exposure to COVID-19; E11.9 Type 2 diabetes mellitus without complications; Z87.891 Personal history of nicotine dependence; Z86.718 Personal history of other venous thrombosis and embolism; Z86.711 Personal history of pulmonary embolism; Z79.01 Long term (current) use of anticoagulants; Z79.899 Other long term (current) drug therapy; Z79.4 Long term (current) use of insulin
CPT/HCPCS: 36415; 71045; 80048; 80076; 81001; 83605; 85025; 87040; 87086; 87088; 87186; 87635; 93005; 96361; 96365; 99284; 99285; J0696

== ENCOUNTER 2023-03-25 10:16 | Emergency (ER) | payer MEDICARE, MEDICAID, SELFPAY ==
[2023-03-25 10:23] VITALS: BP 115/58; BP 127/62; PULSE 80; PULSE 81; RESP 17; TEMP 36.8; O2SAT 96; O2SAT 98; BMI 29.6
--- NOTE | 2023-03-25 10:37 | ED.AMS ---
HPI - Altered Mental Status General Chief Complaint: Altered Mental Status Stated Complaint: Increased lethargy per EMS Time Seen by Provider: 03/25/23 10:24 Source: EMS and old records reviewed Mode of arrival: EMS Limitations: altered mental status History of Present Illness HPI narrative: This is A 73-year-old female With a past medical history of diabetes, DVT/PE on Eliquis, dementia here with concern from senior care staff that patient is more lethargic from her baseline. of note patient here on 03/22 for fever, malaise, lethargy. Found to have UTI. Received 1g rocephin during ER visit. Sent back to SNF on cephalosporin which per EMS/RN patient has been receiving. I did call and speak to senior care staff. They tell me this morning patient was difficult to rouse, she was quite sleepy and would not wake to take her medication. Sh had a rectal temp of 101.6. They did not give tylenol [employer]. On arrival patent alert, confused at baseline, Unable to provide HPI Related Data Home Medications Medication Instructions Recorded Confirmed acetaminophen 325 mg tablet 650 mg PO Q6H PRN Dehydration 02/26/22 09/20/22 apixaban 5 mg tablet 5 mg PO BID 02/26/22 09/20/22 brimonidine 0.2 % eye drops 1 drp ophthalmic (eye) DAILY 02/26/22 09/20/22 duloxetine 30 mg capsule,delayed 30 mg PO BEDTIME 02/26/22 09/20/22 release olanzapine 10 mg tablet 10 mg PO BEDTIME 02/26/22 09/20/22 simvastatin 10 mg tablet 10 mg PO BEDTIME 02/26/22 09/20/22 timolol maleate 0.5 % eye drops 1 drp ophthalmic (eye) BEDTIME 02/26/22 09/20/22 topiramate 25 mg tablet 25 mg PO BID 02/26/22 09/20/22 trazodone 50 mg tablet 25 mg BEDTIME 02/26/22 09/20/22 melatonin 5 mg tablet 5 mg PO BEDTIME PRN Insomnia 04/05/22 09/20/22 insulin glargine 100 unit/mL (3 17 unit subcut BEDTIME 09/20/22 09/20/22 mL) subcutaneous pen (Basaglar KwikPen U-100 Insulin) sennosides 8.6 mg capsule (senna) 17.2 mg PO BEDTIME 09/20/22 09/20/22 Previous Rx's Medication Instructions Recorded sitagliptin phosphate 100 mg 100 mg PO DAILY #30 tabs 03/03/22 tablet (Januvia) docusate sodium 100 mg capsule 100 mg PO BID #30 caps 07/09/22 (Colace) polyethylene glycol 3350 17 17 g PO DAILY #119 grams 07/09/22 gram/dose oral powder (Miralax) cefpodoxime 200 mg tablet 200 mg PO Q12H uti 7 days #14 tabs 03/22/23 doxycycline monohydrate 100 mg 100 mg PO BID #14 tabs 03/25/23 tablet Allergies Allergy/AdvReac Type Severity Reaction Status Date / Time Penicillins Allergy Hives Verified 03/22/23 08:29 Review of Systems Review of Systems: Yes all other systems are reviewed and are negative and Unobtainable due to mental status (unable to obtain d/t patient baseline dementia ) Neurologic: Reports confusion Psychiatric: Psychiatric: Reports confusion PMFSH Past Medical History Attestation statement: The following information was validated with the patient. Source: old records reviewed and nursing notes reviewed Medical History Acute embolism and thrombosis of unspecified deep veins of unspecified lower extremity Acute onset vascular dementia without behavioral disturbance Coronary artery disease DVT (deep venous thrombosis) Glaucoma Neuropathy Non-insulin dependent diabetes mellitus Other pulmonary embolism without acute cor pulmonale Pulmonary embolism Type 2 diabetes mellitus with diabetic neuropathy, unspecified Type 2 diabetes mellitus without complications Vascular dementia Social History Social History Household Members: Other Household Members Other:: Rest Home Housing: Snf Do you presently have visiting nurse or other home services: Yes Unable to assess alcohol history related to: Unable to respond Alcohol intake: never Patient Tobacco Use Status: Former Tobacco user Smoked in Last 30 Days: No Use of substances other than those prescribed or required for medical reasons: No Advance Directives: Yes Advance Directives on File: Yes Advance Directives Date on File: 07/10/22 service: No Physical Exam ED Vital Signs: Vital Signs - 24 hr 03/25/23 10:23 03/25/23 13:15 Temperature 98.3 F Pulse Rate 81 59 Respiratory Rate 17 15 Blood Pressure 127/62 130/56 L Pulse Oximetry 96 97 Oxygen Delivery Method Room Air Room Air BMI result Body Mass Index 29.6 Const General: alert and confusion Orientation/consciousness: confusion Limitations: altered mental status [facility] Head: Yes normal to inspection Ears: hearing grossly normal bilaterally Throat: Yes posterior oropharynx normal, Yes tonsils normal and Yes uvula midline Eyes General: appearance normal, both eyes and all related structures Pupils: Equal, round and reactive pupils present Neck Neck: Yes normal visual inspection, Yes full ROM, Yes no lymphadenopathy and Yes no meningeal signs Chest Chest palpation & inspection: normal inspection of the chest Resp Effort & Inspection: normal respiratory effort Auscultation: clear to auscultation bilaterally Cardio Rate: regular rate Rhythm: regular rhythm Peripheral pulses: Peripheral pulses 2+ throughout GI Inspection: Yes normal to inspection Palpation (GI): Soft to palpation and nontender General: Yes no CVA tenderness Back/Spine/Pelvis Back: no CVA tenderness Thoracic/Lumbar Spine: thoracic and lumbar spine normal to inspection Skin General skin exam: no rashes or lesions noted Neuro General: moves all extremities, no meningeal signs and confusion Cranial nerves: Yes Equal, round and reactive pupils present Extrem General: Yes normal to inspection Course Course Course Narrative: Labs are all within normal limits. UA shows improvement of UTI. CT head negative for ICH. Ct A/P IMPRESSION: *? No noncontrast imaging evidence of pyelonephritis. No perinephric edema or perinephric fluid collection. *? Bronchial cleaning are chronically thickened and scattered endobronchial secretions are present in lower lobes. Also, there are chronic tree-in-bud nodules in the visualized lung bases. These findings could be secondary to aspiration and/or infectious bronchiolitis. -NO cough or hypoxia. NO Tachypnea. LS CTA. Patient reportedly had fever this morning with no antipyretic given but was afebrile here rectally. She has been alert, oriented to self only (has dementia).WIll add doxycycline and discharge back to [facility]. Medical Decision Making Medical Decision Making [facility] Narrative: This is A 73-year-old female With a past medical history of diabetes, DVT/PE on Eliquis, dementia here with concern from senior care staff that patient is more lethargic from her baseline w/ fever this morning. of note patient here on 03/22 for fever, malaise, lethargy. Found to have UTI. Received 1g rocephin during ER visit. Sent back to SNF on cephalosporin which per EMS/RN patient has been receiving. On arrival afebrile here. She is alert but confused with a history of dementia. Abdomen soft/nontender. When I spoke to senior care staff they describe the patient being very lethargic this morning which does seem different from her appearance now. Therefore as she is on AC therapy and unable to provide HPI I will obtain CT head. I will also repeat labs, UA, obtain CT A/P, EKG Her change in mental status may be metabolic from her underlying UTI Differential Diagnosis Differential Diagnoses: The differential diagnosis associated with the presentation includes UTI, pyelo, renal colic ICH Lab Data MDM Lab Attestation statement: I reviewed the patient's lab results. 03/25/23 10:56 03/25/23 10:56 Labs: Lab Results 03/25/23 03/25/23 03/25/23 Range/Units 10:56 10:56 10:56 WBC 10.1 (4.8-10.8) X10*3/uL RBC 3.50 L (4.20-5.50) X10*6/uL Hgb 10.4 L (12.0-16.0) g/dl Hct 32.8 L (37.0-47.0) % MCV 93.7 (80.0-98.0) fL MCH 29.7 (27.0-33.0) pg MCHC 31.7 (31.0-35.0) g/dl RDW 12.6 (11.0-16.0) % Plt Count 232 D (160-400) X10*3/uL MPV 9.4 (9.4-12.3) fL Immature Gran % (Auto) 0.4 (0.0-0.4) % Neut % (Auto) 70.1 (45-73) % Lymph % (Auto) 18.5 L (20-40) % Wharton % (Auto) 9.7 (2-11) % Eos % (Auto) 1.1 (0-4) % Baso % (Auto) 0.2 (0-2) % Lymph # (Auto) 1.9 (1.2-4.9) X10*3/uL Wharton # (Auto) 1.0 (0.1-1.2) X10*3/uL Eos # (Auto) 0.1 (0.0-0.4) X10*3/uL Baso # (Auto) 0.0 (0.0-0.2) X10*3/uL Abs Immat Gran (auto) 0.04 H (0.00-0.03) X10*3/uL Absolute Neuts (auto) 7.1 (2.0-8.3) x10*3/uL Absolute Nucleated RBC 0.000 (0.0-0.012) X10*3/uL Nucleated RBC % (auto) 0.0 (0.0-0.2) /100WBC Sodium 144 (135-145) mmol/L Potassium 3.5 (3.3-5.1) mmol/L Chloride 111 H (96-108) mmol/L Carbon Dioxide 24 (22-29) mmol/L Anion Gap 13 (12-20) BUN 15 (9-16) mg/dL Creatinine 0.79 (0.5-1.4) mg/dL Estim Creat Clear Calc 61.8 Estimated GFR > 60 Random Glucose 141 H (60-115) mg/dL Lactic Acid (0.5-2.0) mmol/L Calcium 9.9 D (8.4-10.2) mg/dL Magnesium 2.0 (1.6-2.6) mg/dL Total Bilirubin 0.5 (0.0-1.0) mg/dL Direct Bilirubin 0.2 (0.0-0.5) mg/dL AST 11 (5-31) U/L ALT 12 (0-31) U/L Alkaline Phosphatase 86 (39-117) U/L Troponin I High Sens 2.8 (<3.5-17.0) ng/L Total Protein 7.6 (6.5-8.0) g/dL Albumin 3.5 (3.5-5.0) g/dL Urine Color Urine Appearance Urine pH (5.0-9.0) Ur Specific [place] (1.005-1.025) Urine Protein (Neg-Trace) mg/dL Urine Glucose (UA) (Negative) mg/dL Urine Ketones (Negative) mg/dL Urine Blood (Negative) Urine Nitrite (Negative) Ur Leukocyte Esterase (Negative) Urine RBC (0-2) /HPF Urine WBC (0-5) /HPF Ur Squamous Epith Cells (0-2) /HPF Urine Bacteria (None Seen) Hyaline Casts (0-2) /LPF 03/25/23 03/25/23 Range/Units 10:56 13:20 WBC (4.8-10.8) X10*3/uL RBC (4.20-5.50) X10*6/uL Hgb (12.0-16.0) g/dl Hct (37.0-47.0) % MCV (80.0-98.0) fL MCH (27.0-33.0) pg MCHC (31.0-35.0) g/dl RDW (11.0-16.0) % Plt Count (160-400) X10*3/uL MPV (9.4-12.3) fL Immature Gran % (Auto) (0.0-0.4) % Neut % (Auto) (45-73) % Lymph % (Auto) (20-40) % Wharton % (Auto) (2-11) % Eos % (Auto) (0-4) % Baso % (Auto) (0-2) % Lymph # (Auto) (1.2-4.9) X10*3/uL [place]arton # (Auto) (0.1-1.2) X10*3/uL Eos # (Auto) (0.0-0.4) X10*3/uL Baso # (Auto) (0.0-0.2) X10*3/uL Abs Immat Gran (auto) (0.00-0.03) X10*3/uL Absolute Neuts (auto) (2.0-8.3) x10*3/uL Absolute Nucleated RBC (0.0-0.012) X10*3/uL Nucleated RBC % (auto) (0.0-0.2) /100WBC Sodium (135-145) mmol/L Potassium (3.3-5.1) mmol/L Chloride (96-108) mmol/L Carbon Dioxide (22-29) mmol/L Anion Gap (12-20) BUN (9-16) mg/dL Creatinine (0.5-1.4) mg/dL Estim Creat Clear Calc Estimated GFR Random Glucose (60-115) mg/dL Lactic Acid 0.7 (0.5-2.0) mmol/L Calcium (8.4-10.2) mg/dL Magnesium (1.6-2.6) mg/dL Total Bilirubin (0.0-1.0) mg/dL Direct Bilirubin (0.0-0.5) mg/dL AST (5-31) U/L ALT (0-31) U/L Alkaline Phosphatase (39-117) U/L Troponin I High Sens (<3.5-17.0) ng/L Total Protein (6.5-8.0) g/dL Albumin (3.5-5.0) g/dL Urine Color Yellow Urine Appearance Clear Urine pH 6.0 (5.0-9.0) Ur Specific [place] 1.020 (1.005-1.025) Urine Protein 30 (1+) H (Neg-Trace) mg/dL Urine Glucose (UA) Negative (Negative) mg/dL Urine Ketones Negative (Negative) mg/dL Urine Blood Negative (Negative) Urine Nitrite Negative (Negative) Ur Leukocyte Esterase Negative (Negative) Urine RBC 0-2 (0-2) /HPF Urine WBC 0-5 (0-5) /HPF Ur Squamous Epith Cells 3-5 (0-2) /HPF Urine Bacteria None Seen (None Seen) Hyaline Casts 0-2 (0-2) /LPF Independent Interpretation I performed an independent interpretation of an: EKG and CT Scan Interpretation: I independently reviewed the CT head and CT abdomen and pelvis and agree with radiologist's report I independently reviewed the EKG which shows normal sinus rhythm with a rate of 76, normal ND, normal QRS, normal Q Radiology Impression Discussion of test interpretation with radiology: I have reviewed the radiologist's reading. Radiologist Impression: [address] [address] [address] Scan Report Signed Patient: Yessy Prakash MR#: [id number] : 1950 Acct:[id number] Age/Sex: 73 / F ADM Date: 03/25/23 Loc: HO.ED Attending Dr: Ordering Physician: Jolly Bob NP Date of Service: 03/25/23 Procedure(s): CT abdomen pelvis wo IV con Accession Number(s): [id number] cc: Jolly Bob NP~ EXAMINATION: CT ABDOMEN AND PELVIS WITHOUT CONTRAST? CLINICAL INFORMATION: Fever. Recent urinary tract infection. Evaluate for pyelonephritis.? COMPARISON: CT abdomen and pelvis from 07/09/2022 TECHNIQUE: Multidetector volumetric imaging was performed from the superior aspect of the liver through the pubic symphysis. Sagittal and coronal reformatted images were obtained on the technologist's workstation.? This CT examination was performed using dose optimization techniques as appropriate, variously including the following: *Automated exposure control *Adjustment of mA and/or kV according to patient size (this includes techniques or standardized protocols for targeted exams where dose is matched to indication/reason for exam; i.e. extremities or head) *Use of iterative reconstruction technique DLP: 1394 mGy-cm FINDINGS: LUNG BASES: Bronchial cleaning are chronically thickened. Scattered endobronchial secretions within lower lobes. Again noted is tree-in-bud nodularity within the visualized right middle lobe, right lower lobe and to lesser extent posterior left lower lobe. These findings could be sequela of aspiration and/or infectious bronchiolitis. No pleural effusion. LIVER: The liver has normal size, shape, and attenuation.? No evidence of liver mass. GALLBLADDER AND BILIARY TREE: Gallbladder is without radiopaque stones, wall thickening or pericholecystic fluid.? No dilated bile ducts. PANCREAS: Mildly atrophied. No edema, pancreatic ductal dilatation or mass.? SPLEEN: Normal.? ADRENAL GLANDS: Normal.? KIDNEYS AND URETERS: Kidneys are normal in size. No renal stones, hydronephrosis or perinephric edema. The renal cortical attenuation is normal bilaterally, although noncontrast imaging has somewhat limited diagnostic value for detection of pyelonephritis. No perinephric fluid collection. The ureters are unremarkable. BLADDER:? Normal. No calculi or wall thickening. BOWEL AND PERITONEUM: Stomach is grossly normal. No dilated bowel loops. No focal bowel wall thickening, mesenteric fat stranding or free fluid. No evidence of an inflammatory or obstructive process along the gastrointestinal tract. ABDOMINAL WALL: Small fat-containing umbilical hernia is present.? VASCULATURE: Atherosclerosis of the abdominal aorta without aneurysm. LYMPH NODES: No pathologic sized lymph nodes in the abdomen or pelvis. No inguinal lymphadenopathy. PELVIC VISCERA: Uterus and adnexa are unremarkable. No pelvic free fluid or abscess. MUSCULOSKELETAL: There are Schmorl's nodes of inferior endplates of T8 and T10 vertebral bodies. Moderate to severe facet osteoarthritis and grade 1 anterolisthesis at L3-L4. Moderate discovertebral degenerative changes of L4-5 and L5-S1.? CT/CT abdomen pelvis wo IV con IMPRESSION: *? No noncontrast imaging evidence of pyelonephritis. No perinephric edema or perinephric fluid collection. *? Bronchial cleaning are chronically thickened and scattered endobronchial secretions are present in lower lobes. Also, there are chronic tree-in-bud nodules in the visualized lung bases. These findings could be secondary to aspiration and/or infectious bronchiolitis. [place] [address] CT Scan Report Signed Patient: Yessy Prakash MR#: [id number] : 1950 Acct:[id number] Age/Sex: 73 / F ADM Date: 03/25/23 Loc: HO.ED Attending Dr: Ordering Physician: Jolly Bob NP Date of Service: 03/25/23 Procedure(s): CT head/brain wo IV con Accession Number(s): [id number] cc: Jolly Bob NP~ EXAMINATION: CT HEAD WITHOUT CONTRAST CLINICAL INFORMATION: Altered mental status. On anticoagulation therapy.? COMPARISON: Brain MRI 08/31/2022. CT head 08/31/2022. TECHNIQUE: Contiguous axial imaging was performed from the skull base to vertex without intravenous administration of contrast. This CT examination was performed using dose optimization techniques as appropriate, variously including the following: *Automated exposure control *Adjustment of mA and/or kV according to patient size (this includes techniques or standardized protocols for targeted exams where dose is matched to indication/reason for exam; i.e. extremities or head) *Use of iterative reconstruction technique DLP: 1394 mGy-cm FINDINGS: There is no acute intracranial hemorrhage or abnormal extra-axial collection. No intracranial mass effect or midline shift. Lateral and third ventricles are proportionate to the subarachnoid spaces. No hydrocephalus. There are scattered nonspecific foci of hypoattenuation within the periventricular white matter that most likely represent a chronic manifestation of small vessel ischemia. Grossly no evidence acute territorial infarct. The calvarium and skull base are intact. Mastoid air cells and middle ear cavities are well aerated. No active paranasal sinus disease. ? CT/CT head/brain wo IV con IMPRESSION: There are scattered chronic small vessel ischemic changes within the periventricular white matter. No evidence of acute territorial infarct or hemorrhage. ? ? Independent Historian Clinical information obtained from an independent historian. History obtained from or confirmed by: EMS Clinical information obtained and [facility] Discharge Plan Discharge Clinical Impression: Aspiration pneumonia Patient Disposition: Home, Self-Care Instructions: Aspiration Pneumonia (DC) Additional Instructions: Continue cefpodixime Start doxycycline Return for worseneing symptoms Prescriptions: New doxycycline monohydrate 100 mg tablet 100 mg PO BID Qty: 14 0RF No Action apixaban 5 mg Tablet 5 mg PO BID topiramate 25 mg Tablet 25 mg PO BID duloxetine 30 mg Capsule,Delayed Release(Dr/Ec) 30 mg PO BEDTIME olanzapine 10 mg Tablet 10 mg PO BEDTIME simvastatin 10 mg Tablet 10 mg PO BEDTIME trazodone 50 mg Tablet 25 mg BEDTIME brimonidine 0.2 % Drops 1 drp ophthalmic (eye) DAILY timolol maleate 0.5 % Drops 1 drp OPHTHALMIC (EYE) BEDTIME acetaminophen 325 mg Tablet 650 mg PO Q6H MDD PAIN/HEADACHE PRN (Reason: Dehydration) Januvia 100 mg Tablet 100 mg PO DAILY Qty: 30 0RF melatonin 5 mg Tablet 5 mg PO BEDTIME PRN (Reason: Insomnia) polyethylene glycol 3350 [Miralax] 17 gram/dose powder 17 g PO DAILY Qty: 119 0RF docusate sodium [Colace] 100 mg capsule 100 mg PO BID Qty: 30 0RF insulin glargine [Basaglar KwikPen U-100 Insulin] 100 unit/mL (3 mL) insulin pen 17 unit subcut BEDTIME senna 8.6 mg capsule 17.2 mg PO BEDTIME cefpodoxime 200 mg tablet 200 mg PO Q12H 7 Days Qty: 14 0RF Rx Instructions: must administer with a meal/food Referrals: Phuong Hurst NP [Primary Care Provider] - 1 week (for continued symptoms )
[2023-03-25 13:15] VITALS: BP 130/56; PULSE 59; RESP 15; O2SAT 97
--- NOTE | 2023-03-25 13:23 | PC.NURSE ---
Patient resting with eyes closed. VSS. Patient straight cathed for 75 ml of urine, urine sent to lab.
== END 2023-03-25 14:50 | disposition home or self-care (01) ==
PROVIDERS: Emergency Provider Emergency Medicine; PCP Nurse Practitioner Adult Health
DX: J18.9 Pneumonia, unspecified organism (principal); N39.0 Urinary tract infection, site not specified; R51.9 Headache, unspecified; R50.9 Fever, unspecified; Z79.01 Long term (current) use of anticoagulants; Z86.718 Personal history of other venous thrombosis and embolism; Z79.899 Other long term (current) drug therapy; Z79.4 Long term (current) use of insulin; Z87.891 Personal history of nicotine dependence
CPT/HCPCS: 36415; 51702; 70450; 74176; 80048; 80076; 81001; 83605; 83735; 84484; 85025; 87040; 93005; 99285

== ENCOUNTER → 2023-03-25 10:35 | Outpatient (BNV) | payer MEDICARE, MEDICAID, SELFPAY | PROVIDERS: Emergency Provider Emergency Medicine; PCP Nurse Practitioner Adult Health; Visit Provider Internal Medicine Cardiovascular Disease | DX: R53.1 Weakness (principal) | CPT/HCPCS: 93010 ==

== ENCOUNTER 2023-03-30 17:28 | Emergency (ER) | payer MEDICARE, MEDICAID, SELFPAY ==
--- NOTE | ~2023-03-30 | CT_ITS ---
EXAMINATION: CT ABDOMEN AND PELVIS WITH CONTRAST CLINICAL INFORMATION: Evaluate for pancreatitis. COMPARISON: CT abdomen/pelvis 03/25/2023. TECHNIQUE: Multidetector volumetric images were obtained from the superior aspect of the liver through the pubic symphysis following administration 85 mL of Omnipaque 350 intravenous contrast. Sagittal and coronal reformatted images were obtained on the technologist's workstation. Oral contrast: No This CT examination was performed using dose optimization techniques as appropriate, variously including the following: *Automated exposure control *Adjustment of mA and/or kV according to patient size (this includes techniques or standardized protocols for targeted exams where dose is matched to indication/reason for exam; i.e. extremities or head) *Use of iterative reconstruction technique DLP: 570 mGy-cm FINDINGS: Evaluation is limited by motion. LUNG BASES: Again noted tree-in-bud nodularities with bronchial wall thickening in the right middle and lower lungs, and to a lesser extent posterior left lung base. LIVER, GALLBLADDER, AND BILIARY TREE: The liver is normal in size, shape, and attenuation. A too small to characterize hypodensity in the left hepatic lobe image 17 series 3 is unchanged since 2020, which is reassuring for a simple cyst. No new liver lesion. No biliary ductal dilatation is present. The gallbladder is unremarkable with no evidence of radiopaque gallstones, gallbladder wall thickening, or obvious pericholecystic inflammatory changes. PANCREAS: Unremarkable. SPLEEN: Unremarkable. ADRENAL GLANDS: Unremarkable. KIDNEYS AND URETERS: Too small to characterize hypodensity in the lower left kidney, favoring to represent a simple cyst for which no imaging up is recommended. Symmetric nephrograms. No hydronephrosis. No perinephric fat stranding. BLADDER: Diffuse urinary bladder wall thickening. GASTROINTESTINAL TRACT: Equivocal subtle circumferential wall thickening of the gastroesophageal junction. The stomach and the small bowel are nondilated. Large amount of stool in the colon. Colonic diverticulosis. No pericolonic inflammatory changes. No evidence of bowel obstruction. Nonspecific focal masslike thickening in the cecum/ascending colon, axial image 51 series 3. Long dilated appendix, fluid filled, measuring up to 0.9 cm in diameter. No significant periappendiceal fat stranding. No discrete appendicolith. ABDOMINAL WALL: Small fat-containing supraumbilical abdominal wall hernia. LYMPH NODES: No lymphadenopathy. VASCULAR: Atherosclerotic disease. Abdominal aorta is normal in caliber. PELVIC VISCERA: Unremarkable. OSSEOUS STRUCTURES: Degenerative changes of the spine. No acute or aggressive appearing osseous findings. Stable grade 1 anterolisthesis of L3 on L4. Unchanged prominent Schmorl's nodule along the inferior endplate of T10. CT/CT abdomen pelvis w IV con IMPRESSION: Evaluation is limited by motion. 1. No significant peripancreatic free fluid and fat stranding to suspect acute pancreatitis by imaging. 2. Long dilated fluid-filled appendix without significant periappendiceal fat stranding. Correlate clinically for acute appendicitis. 3. Nonspecific focal masslike thickening in the cecum/ascending colon. Recommend correlation with colonoscopy to evaluate for underlying neoplasia. 4. Large amount of stool in the colon suggesting constipation. 5. Mild diffuse urinary bladder wall thickening, correlate with urinalysis for the presence of cystitis. 6. Equivocal mild circumferential wall thickening of the lower esophagus/GE junction, correlate clinically for reflux disease and esophagitis. 7. Redemonstration of tree-in-bud nodularities and bronchial wall thickening in the right middle and lower lobes, and to a lesser extent posterior left lung base. These findings could be related with an infectious or inflammatory process of the small airways.
--- NOTE | ~2023-03-30 | XR_ITS ---
EXAMINATION: PORTABLE CHEST 1 VIEW CLINICAL INFORMATION: r/o pna. COMPARISON: 03/22/2023. TECHNIQUE: Portable frontal view of the chest was obtained. FINDINGS: The lungs are hypoexpanded with patchy bilateral airspace disease again seen, similar to the prior study. This is not significantly changed from that time atypical infection cannot be excluded. No overt edema or pneumothorax. Cardiac and mediastinal silhouettes within normal limits for size. No acute bony abnormality. XR/XR chest 1V IMPRESSION: Hypoexpanded with patchy bilateral airspace disease similar to the prior study. Atypical infection cannot be excluded.
[2023-03-30 17:41] VITALS: BP 118/68; PULSE 73; O2SAT 92
[2023-03-30 17:47] VITALS: BP 123/53; PULSE 74; RESP 18; TEMP 36.6; O2SAT 98; BMI 31.0
--- NOTE | 2023-03-30 18:41 | ECG_ITS ---
Test Reason : WEAKNESS Blood Pressure : / mmHG Vent. Rate : 072 BPM Atrial Rate : 072 BPM P-R Int : 168 ms QRS Dur : 082 ms QT Int : 394 ms P-R-T Axes : 065 046 026 degrees QTc Int : 431 ms Normal sinus rhythm Normal ECG When compared with ECG of 25-MAR-2023 10:35, No significant change was found Referred By: Jayla Norris Electronically Signed By:DEBBIE CAMERON MD
--- NOTE | 2023-03-30 18:42 | ED.GENADULT ---
HPI - General Adult General Chief complaint: General Medical Stated complaint: failure to thrive, per ems Time Seen by Provider: 03/30/23 17:49 Source: patient and EMS Mode of arrival: EMS Limitations: other (Vascular dementia) History of Present Illness HPI narrative: Patient comes to the emergency room from [facility]. According to the staff, the patient has been refusing to eat and drink, refusing medications. Patient was diagnosed diagnosed last week with aspiration pneumonia and a urinary tract infection. Patient states that she does not know why she is here. Patient complaining of feeling weak Related Data Home Medications Medication Instructions Recorded Confirmed acetaminophen 325 mg tablet 650 mg PO Q6H PRN Dehydration 02/26/22 09/20/22 apixaban 5 mg tablet 5 mg PO BID 02/26/22 09/20/22 brimonidine 0.2 % eye drops 1 drp ophthalmic (eye) DAILY 02/26/22 09/20/22 duloxetine 30 mg capsule,delayed 30 mg PO BEDTIME 02/26/22 09/20/22 release olanzapine 10 mg tablet 10 mg PO BEDTIME 02/26/22 09/20/22 simvastatin 10 mg tablet 10 mg PO BEDTIME 02/26/22 09/20/22 timolol maleate 0.5 % eye drops 1 drp ophthalmic (eye) BEDTIME 02/26/22 09/20/22 topiramate 25 mg tablet 25 mg PO BID 02/26/22 09/20/22 trazodone 50 mg tablet 25 mg BEDTIME 02/26/22 09/20/22 melatonin 5 mg tablet 5 mg PO BEDTIME PRN Insomnia 04/05/22 09/20/22 insulin glargine 100 unit/mL (3 17 unit subcut BEDTIME 09/20/22 09/20/22 mL) subcutaneous pen (Basaglar KwikPen U-100 Insulin) sennosides 8.6 mg capsule (senna) 17.2 mg PO BEDTIME 09/20/22 09/20/22 Previous Rx's Medication Instructions Recorded sitagliptin phosphate 100 mg 100 mg PO DAILY #30 tabs 03/03/22 tablet (Januvia) docusate sodium 100 mg capsule 100 mg PO BID #30 caps 07/09/22 (Colace) polyethylene glycol 3350 17 17 g PO DAILY #119 grams 07/09/22 gram/dose oral powder (Miralax) cefpodoxime 200 mg tablet 200 mg PO Q12H uti 7 days #14 tabs 03/22/23 doxycycline monohydrate 100 mg 100 mg PO BID #14 tabs 03/25/23 tablet Allergies Allergy/AdvReac Type Severity Reaction Status Date / Time Penicillins Allergy Hives Verified 03/22/23 08:29 Review of Systems Review of Systems: Constitutional : No Weight loss, No Fever, No Chills, No Night Sweats, complaining of fatigue ENT/Mouth : No Hearing loss, No Ear Pain, No Nasal Congestion, No Sinus Pain, No Hoarseness, No sore throat, No Rhinorrhea, No Swallowing Difficulty Eyes: No Eye Pain, No Swelling, No Redness, No Foreign Body, No Discharge, No Vision Changes Cardiovascular : No Chest Pain, No SOB, No Dyspnea on Exertion, No Orthopnea, No Edema, No Palpitations Respiratory : No Cough, No Sputum, No Wheezing, No Smoke Exposure, No Dyspnea Gastrointestinal : No Nausea, No Vomiting, No Diarrhea, No Constipation, No abdominal Pain, No Hematochezia, No Melena Genitourinary : no irregular bleeding, No Dysuria, No Urinary Frequency, No Hematuria, No Urinary Incontinence, No Urgency, No Flank Pain, No Urinary Flow Changes, No Hesitancy Musculoskeletal : No joint pain, No Myalgias, No Joint Swelling Skin : No Skin Lesions, No rash Neuro : No Weakness, No Numbness, No Paresthesias, No Loss of Consciousness, No Dizziness, No Headache Psych : No Anxiety/Panic, No Depression, No SI/HI/AH/VH, No Social Issues, Heme/Lymph: No Bruising, No Bleeding,No Lymphadenopathy Endocrine : No Polyuria, No Polydipsia, No Temperature Intolerance [facility] Past Medical History Medical History Acute embolism and thrombosis of unspecified deep veins of unspecified lower extremity Acute onset vascular dementia without behavioral disturbance Coronary artery disease DVT (deep venous thrombosis) Glaucoma Neuropathy Non-insulin dependent diabetes mellitus Other pulmonary embolism without acute cor pulmonale Pulmonary embolism Type 2 diabetes mellitus with diabetic neuropathy, unspecified Type 2 diabetes mellitus without complications Vascular dementia Social History Social History Household Members: Other Household Members Other:: Rest Home Housing: Residential Do you presently have visiting nurse or other home services: Yes Unable to assess alcohol history related to: Unable to respond Alcohol intake: former Patient Tobacco Use Status: Former Tobacco user Smoked in Last 30 Days: No Use of substances other than those prescribed or required for medical reasons: No Advance Directives: Yes Advance Directives on File: Yes Advance Directives Date on File: 07/10/22 service: No Physical Exam ED Vital Signs: Vital Signs - 24 hr 03/30/23 17:47 03/30/23 19:43 03/30/23 22:22 Temperature 97.8 F 98.3 F 97.9 F Pulse Rate 74 71 98 Respiratory Rate 18 16 14 Blood Pressure 123/53 L 123/51 L 141/69 H Pulse Oximetry 98 95 98 Oxygen Delivery Method Room Air Nasal Cannula Nasal Cannula Oxygen Flow Rate 2 2 BMI result Body Mass Index 31.0 Const Other: Appearance: Alert. Oriented X1. No acute distress. Eyes: Pupils equal, round and reactive to light. ENT: Pharynx normal. Neck: Normal inspection. Neck supple. No lymph nodes noted. No crepitus CVS: Normal heart rate and rhythm. Pulses normal. Normal S1 and S2 Respiratory: No respiratory distress. Breath sounds normal. No Wheezing. No rales Abdomen: Soft and nontender. No rigidity. No distention. Skin: Skin warm and dry. Normal skin color. Normal skin turgor. Extremities: No lower extremity edema. No Lacerations. No Rash Neuro: Oriented X 1. No motor deficit. No sensory deficit. Moving all extremities. No slurred speech. CN 2 through 12 grossly intact Psych: calm, cooperative, normal affect Course Course Course Narrative: -all of patient's labs are pending -patient has not had any p.o. intake in several days, refusing fluids. Patient is getting at this time IV fluids Medications Administered Discontinued Medications Generic Name Dose Route Start Last Admin Trade Name Freq PRN Reason Stop Dose Admin Sodium Chloride 1,000 mls @ 999 mls/hr 03/30/23 18:41 03/30/23 19:47 Ns IVCONT 03/30/23 19:41 999 mls/hr .Q1H1M ONE Administration Iohexol 85 ml 03/30/23 23:19 03/30/23 23:19 Iohexol 350 Mg/Ml 100 Ml Infus..Btl IV 03/30/23 23:20 85 ml ONCE ONE Administration Medical Decision Making Medical Decision Making [facility] Narrative: -patient not eating or drinking, patient has adult failure to thrive. Considering admission. All of the labs pending -my interpretation of EKG: Normal sinus rhythm, heart rate 72, no surveyor's assistant patient elevation, no T-wave inversion, QTC 431 -my interpretation of labs, white blood cell count within normal limits. Patient's lipase is slightly elevated, 187. -CT scan of the abdomen and pelvis pending, to rule out pancreatitis -on CT scan, patient does not have pancreatitis, on physical exam, patient does not have any abdominal pain at all. -my interpretation of CT scan, no obstruction, there is significant amount of stool in the bowel. -CT scan reports possible appendicitis. Patient has no pain in the right lower quadrant or periumbilical pain, also up blood cell count is normal, this is likely an incidental finding. Also, the report of the CT scan of the abdomen/pelvis shows a nonspecific focal mass thickening in the cecum/ascending colon, patient will likely need a colonoscopy to evaluate for underlying neoplasia. -patient received IV fluids, patient does not seem to be significant dehydrated. -I discussed the above-mentioned with Dr. Hurt, at this time, there is no criteria for admission. Patient can follow-up in an outpatient visit Patient voices no complaints. Denies abdominal pain Differential Diagnosis Differential Diagnoses: The differential diagnosis associated with the presentation includes (Adult failure to thrive, pancreatitis, appendicitis, colon neoplasia) Admission/Observation Consideration of admission/observation: Escalation of care including admission/observation considered Consult Healthcare Provider Management of the patient was discussed with: Hospitalist Lab Data [facility] Lab Attestation statement: I reviewed the patient's lab results. 03/30/23 20:01 03/30/23 20:02 Labs: Lab Results 03/30/23 03/30/23 03/30/23 Range/Units 20:01 20:01 20:01 WBC 6.0 (4.8-10.8) X10*3/uL RBC 3.73 L (4.20-5.50) X10*6/uL Hgb 11.1 L (12.0-16.0) g/dl Hct 34.9 L (37.0-47.0) % MCV 93.6 (80.0-98.0) fL MCH 29.8 (27.0-33.0) pg MCHC 31.8 (31.0-35.0) g/dl RDW 12.3 (11.0-16.0) % Plt Count 300 D (160-400) X10*3/uL MPV 9.2 L (9.4-12.3) fL Immature Gran % (Auto) 0.3 (0.0-0.4) % Neut % (Auto) 71.7 (45-73) % Lymph % (Auto) 19.4 L (20-40) % [place] % (Auto) 7.0 (2-11) % Eos % (Auto) 1.3 (0-4) % Baso % (Auto) 0.3 (0-2) % Lymph # (Auto) 1.2 (1.2-4.9) X10*3/uL [place] # (Auto) 0.4 (0.1-1.2) X10*3/uL Eos # (Auto) 0.1 (0.0-0.4) X10*3/uL Baso # (Auto) 0.0 (0.0-0.2) X10*3/uL Abs Immat Gran (auto) 0.02 (0.00-0.03) X10*3/uL Absolute Neuts (auto) 4.3 (2.0-8.3) x10*3/uL Absolute Nucleated RBC 0.000 (0.0-0.012) X10*3/uL Nucleated RBC % (auto) 0.0 (0.0-0.2) /100WBC PT 13.1 (10.0-13.1) SEC INR 1.1 (0.9-1.1) Sodium (135-145) mmol/L Potassium (3.3-5.1) mmol/L Chloride (96-108) mmol/L Carbon Dioxide (22-29) mmol/L Anion Gap (12-20) BUN (9-16) mg/dL Creatinine (0.5-1.4) mg/dL Estim Creat Clear Calc Estimated GFR Random Glucose (60-115) mg/dL Lactic Acid 0.7 (0.5-2.0) mmol/L Calcium (8.4-10.2) mg/dL Magnesium (1.6-2.6) mg/dL Total Bilirubin (0.0-1.0) mg/dL Direct Bilirubin (0.0-0.5) mg/dL AST (5-31) U/L ALT (0-31) U/L Alkaline Phosphatase (39-117) U/L Troponin I High Sens (<3.5-17.0) ng/L Total Protein (6.5-8.0) g/dL Albumin (3.5-5.0) g/dL Lipase (8-78) U/L TSH (0.32-4.0) uIU/mL 03/30/23 03/30/23 03/30/23 Range/Units 20:01 20:01 20:02 WBC (4.8-10.8) X10*3/uL RBC (4.20-5.50) X10*6/uL Hgb (12.0-16.0) g/dl Hct (37.0-47.0) % MCV (80.0-98.0) fL MCH (27.0-33.0) pg MCHC (31.0-35.0) g/dl RDW (11.0-16.0) % Plt Count (160-400) X10*3/uL MPV (9.4-12.3) fL Immature Gran % (Auto) (0.0-0.4) % Neut % (Auto) (45-73) % Lymph % (Auto) (20-40) % [place] % (Auto) (2-11) % Eos % (Auto) (0-4) % Baso % (Auto) (0-2) % Lymph # (Auto) (1.2-4.9) X10*3/uL [place] # (Auto) (0.1-1.2) X10*3/uL Eos # (Auto) (0.0-0.4) X10*3/uL Baso # (Auto) (0.0-0.2) X10*3/uL Abs Immat Gran (auto) (0.00-0.03) X10*3/uL Absolute Neuts (auto) (2.0-8.3) x10*3/uL Absolute Nucleated RBC (0.0-0.012) X10*3/uL Nucleated RBC % (auto) (0.0-0.2) /100WBC PT (10.0-13.1) SEC INR (0.9-1.1) Sodium 145 (135-145) mmol/L Potassium 3.3 (3.3-5.1) mmol/L Chloride 112 H (96-108) mmol/L Carbon Dioxide 26 (22-29) mmol/L Anion Gap 10 L (12-20) BUN 14 (9-16) mg/dL Creatinine 0.70 (0.5-1.4) mg/dL Estim Creat Clear Calc 68.8 Estimated GFR > 60 Random Glucose 88 (60-115) mg/dL Lactic Acid (0.5-2.0) mmol/L Calcium 9.8 (8.4-10.2) mg/dL Magnesium 1.9 (1.6-2.6) mg/dL Total Bilirubin 0.2 (0.0-1.0) mg/dL Direct Bilirubin < 0.2 (0.0-0.5) mg/dL AST 18 (5-31) U/L ALT 12 (0-31) U/L Alkaline Phosphatase 81 (39-117) U/L Troponin I High Sens < 2.7 (<3.5-17.0) ng/L Total Protein 7.4 (6.5-8.0) g/dL Albumin 3.4 L (3.5-5.0) g/dL Lipase 187 H (8-78) U/L TSH 0.89 (0.32-4.0) uIU/mL Independent Interpretation I performed an independent interpretation of an: CT Scan Radiology Impression Discussion of test interpretation with radiology: I have reviewed the radiologist's reading. Radiologist Impression: IMPRESSION: Evaluation is limited by motion. ? 1.? No significant peripancreatic free fluid and fat stranding to suspect acute pancreatitis by imaging. 2.? Long dilated fluid-filled appendix without significant periappendiceal fat stranding. Correlate clinically for acute appendicitis. 3.? Nonspecific focal masslike thickening in the cecum/ascending colon. Recommend correlation with colonoscopy to evaluate for underlying neoplasia. 4.? Large amount of stool in the colon suggesting constipation. 5.? Mild diffuse urinary bladder wall thickening, correlate with urinalysis for the presence of cystitis. 6.? Equivocal mild circumferential wall thickening of the lower esophagus/GE junction, correlate clinically for reflux disease and esophagitis. 7.? Redemonstration of tree-in-bud nodularities and bronchial wall thickening in the right middle and lower lobes, and to a lesser extent posterior left lung base. These findings could be related with an infectious or inflammatory process of the small airways. External Record Review External record reviewed: Inpatient record Last time the patient was admitted, patient had acute hypernatremia, dehydration. Not the case this time. This time patient does not have pneumonia or UTI Discharge Plan Discharge Clinical Impression: Acute dehydration Patient Disposition: Home, Self-Care Instructions: Dehydration (ED) Additional Instructions: Your CT scan showed a nonspecific masslike thickening of your ascending colon. You will need a colonoscopy, please follow-up with gastroenterology. Please follow-up with your primary care physician tomorrow. If you have any worsening or new symptoms, please return to the emergency room or call 911 Prescriptions: No Action apixaban 5 mg Tablet 5 mg PO BID topiramate 25 mg Tablet 25 mg PO BID duloxetine 30 mg Capsule,Delayed Release(Dr/Ec) 30 mg PO BEDTIME olanzapine 10 mg Tablet 10 mg PO BEDTIME simvastatin 10 mg Tablet 10 mg PO BEDTIME trazodone 50 mg Tablet 25 mg BEDTIME brimonidine 0.2 % Drops 1 drp ophthalmic (eye) DAILY timolol maleate 0.5 % Drops 1 drp OPHTHALMIC (EYE) BEDTIME acetaminophen 325 mg Tablet 650 mg PO Q6H MDD PAIN/HEADACHE PRN (Reason: Dehydration) Januvia 100 mg Tablet 100 mg PO DAILY Qty: 30 0RF melatonin 5 mg Tablet 5 mg PO BEDTIME PRN (Reason: Insomnia) polyethylene glycol 3350 [Miralax] 17 gram/dose powder 17 g PO DAILY Qty: 119 0RF docusate sodium [Colace] 100 mg capsule 100 mg PO BID Qty: 30 0RF insulin glargine [Basaglar KwikPen U-100 Insulin] 100 unit/mL (3 mL) insulin pen 17 unit subcut BEDTIME senna 8.6 mg capsule 17.2 mg PO BEDTIME cefpodoxime 200 mg tablet 200 mg PO Q12H 7 Days Qty: 14 0RF Rx Instructions: must administer with a meal/food doxycycline monohydrate 100 mg tablet 100 mg PO BID Qty: 14 0RF Referrals: Marcio Broderick [Physician] - 04/02/23
[2023-03-30 19:43] VITALS: BP 123/51; PULSE 71; RESP 16; TEMP 36.8; O2SAT 95
[2023-03-30] MEDS: 0.9 % Sodium Chloride 1,000 ML 999 ML IVCONT (19:47)
[2023-03-30 20:10] LABS: MANUAL DIFF FLAG NO
[2023-03-30 20:19] LABS: Basophils Percent Auto 0.3 % (0-2); Eosinophils Absolute Auto 0.1 X10*3/uL (0.0-0.4); Eosinophils Percent Auto 1.3 % (0-4); Hematocrit 34.9 % (37.0-47.0); Hemoglobin 11.1 g/dl (12.0-16.0); Imm Gran Abs Auto 0.02 X10*3/uL (0.00-0.03); Imm Gran Pct Auto 0.3 % (0.0-0.4); Lymphocytes Absolute Auto 1.2 X10*3/uL (1.2-4.9); Lymphocytes Percent Auto 19.4 % (20-40); Mean Corpuscular HGB Conc 31.8 g/dl (31.0-35.0); Mean Corpuscular Hemoglobin 29.8 pg (27.0-33.0); Mean Corpuscular Volume 93.6 fL (80.0-98.0); Mean Platelet Volume 9.2 fL (9.4-12.3); Monocytes Absolute Auto 0.4 X10*3/uL (0.1-1.2); Neutrophils Absolute Auto 4.3 x10*3/uL (2.0-8.3); Neutrophils Percent Auto 71.7 % (45-73); Platelet Count 300 X10*3/uL (160-400); Red Blood Count 3.73 X10*6/uL (4.20-5.50); Red Cell Distribution Width 12.3 % (11.0-16.0)
[2023-03-30 20:23] LABS: Lactic Acid 0.7 mmol/L (0.5-2.0)
[2023-03-30 20:26] LABS: INTERNATIONAL NORM RATIO 1.1 (0.9-1.1); Prothrombin Time 13.1 SEC (10.0-13.1)
[2023-03-30 20:27] LABS: Alanine Aminotransferase 12 U/L (0-31); Albumin Level 3.4 g/dL (3.5-5.0); Alkaline Phosphatase 81 U/L (39-117); Anion Gap 10 (12-20); Aspartate Amino Transferase 18 U/L (5-31); Bilirubin Direct < 0.2 mg/dL (0.0-0.5); Bilirubin Total 0.2 mg/dL (0.0-1.0); Blood Urea Nitrogen 14 mg/dL (9-16); Calcium 9.8 mg/dL (8.4-10.2); Carbon Dioxide 26 mmol/L (22-29); Chloride 112 mmol/L (96-108); Creatinine Clr Calc Pharmacy 68.8; Estimated Glomerular Filt Rate > 60; Glucose Random 88 mg/dL (60-115); Lipase 187 U/L (8-78); Magnesium 1.9 mg/dL (1.6-2.6); Potassium 3.3 mmol/L (3.3-5.1); Sodium 145 mmol/L (135-145); Total Protein 7.4 g/dL (6.5-8.0)
[2023-03-30 20:35] LABS: Troponin-I High Sensitivity < 2.7 ng/L (<3.5-17.0)
--- NOTE | 2023-03-30 20:41 | PC.NURSE ---
Assumed care of patient at 1900. Patient alert and oriented.IV access in left wrist. Fluids running. Straight cath inserted, with no output at this time. Will continue to follow plan of care
[2023-03-30 20:48] LABS: TSH reflex Free T4 0.89 uIU/mL (0.32-4.0)
[2023-03-30 22:22] VITALS: BP 141/69; PULSE 98; RESP 14; TEMP 36.6; O2SAT 98
[2023-03-30] MEDS: iohexoL 350 MG/ML 100 ML INFUS..BTL 85 ML IV (23:19)
--- NOTE | 2023-03-30 23:34 | PC.NURSE ---
Recieved call from [facility] access requested information on patients status, informed caller that there was not a release on file and denied request
--- NOTE | 2023-03-31 01:59 | PC.NURSE ---
Report given to [facility] Camila staff Ruby
--- NOTE | 2023-03-31 02:01 | MHC.EDTECH ---
call out to [facility] to book BLS transport back to [facility] [address] [place] [address]
[2023-03-31 02:03] VITALS: BP 142/64; PULSE 78; RESP 18; TEMP 36.8; O2SAT 99
== END 2023-03-31 03:51 | disposition home or self-care (01) ==
PROVIDERS: Emergency Provider Emergency Medicine
DX: E86.0 Dehydration (principal); J18.9 Pneumonia, unspecified organism; R62.7 Adult failure to thrive; N39.0 Urinary tract infection, site not specified; R53.1 Weakness; Z87.891 Personal history of nicotine dependence; Z79.899 Other long term (current) drug therapy
CPT/HCPCS: 36415; 71045; 74177; 80048; 80076; 83605; 83690; 83735; 84443; 84484; 85025; 85610; 87040; 93005; 99284; Q9967

== ENCOUNTER → 2023-03-30 18:41 | Outpatient (BNV) | payer MEDICARE, MEDICAID, SELFPAY | PROVIDERS: Emergency Provider Emergency Medicine; Visit Provider Internal Medicine Cardiovascular Disease | DX: R53.1 Weakness (principal) | CPT/HCPCS: 93010 ==